=== PATIENT | male | born 1950 | race Two or more races ===

== ENCOUNTER 2017-11-20 06:20 | Inpatient (IN) | payer MEDICARE ==
[2017-11-20] VITALS (9 sets, daily range): BP systolic 93–136; BP diastolic 53–80
[~2017-11-20] VITALS: Ht 167.6 cm; Wt 54.4 kg
--- NOTE | 2017-11-20 06:35 | Emergency Room Report ---
History of Present Illness General Chief Complaint: Dyspnea/Respdistress Source: Patient, EMS Present Illness HPI Patient's a 66-year-old male who presented after increased shortness of breath. Patient gradual onset of symptoms. Patient recently been discharged from the hospital after pneumonia. He had prior history of COPD as well as CHF. Patient reported having increased cough. He reported having some increased leg swelling. Patient stated he was having some difficulty with urination. He denies any fever. Patient was sent in for worsening difficulty breathing.Shortness of breath is worse with supine position. The patient denies any current chest pain. Allergies: Coded Allergies: No Known Allergies (Unverified , 11/20/17) Patient History Past Medical History: see triage record Reviewed Nursing Documentation: PMH: Agreed, PSxH: Agreed Nursing Documentation-PMH Past Medical History: No History, Except For Hx Hypertension: Yes Hx Pacemaker: Yes Hx COPD: Yes Hx Neurological Problems: No - BPH, MRSA Review of Systems All Other Systems: negative except mentioned in HPI Physical Exam Vital Signs Date Time Temp Pulse Resp B/P (MAP) Pulse Ox O2 Delivery O2 Flow Rate FiO2 11/20/17 06:22 98.2 72 16 136/80 100 Room Air Sp02 EP Interpretation: reviewed, normal General Appearance: normal inspection, alert, moderate distress, Chronically Ill Head: atraumatic ENT: normal ENT inspection, hearing grossly normal, normal voice Neck: normal inspection, full range of motion, supple, no bony tend Respiratory: normal inspection, no retraction, accessory muscle use, crackles Cardiovascular #1: tachycardia, edema Gastrointestinal: normal inspection, normal bowel sounds, non tender, soft, no guarding, no hernia Genitourinary: no CVA tenderness Musculoskeletal: normal inspection, back normal, normal range of motion Neurologic: normal inspection, alert, oriented x3, responsive, 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 Differential included but was not limited to anemia, pneumonia, pneumothorax, myocardial infarction, pericardial effusion, congestive heart failure, acidosis. Because of complexity of patient' s case laboratory testing and imaging studies were ordered. EKG interpreted by me showed paced rhythm with a rate of 14 with prolonged QT interval QTC was 554. Chest x-ray one view interpreted by me showed marked cardiomegaly with vascular congestion consistent with CHF there is no evident pneumothorax. Patient was given IV Lasix as well as breathing treatment. He was noted to have some improvement in his symptoms. The patient was admitted Dr. Coronado due to primary care physician Labs Test 11/20/17 06:45 11/20/17 07:00 White Blood Count 5.5 K/UL (4.8-10.8) Red Blood Count 4.70 M/UL (4.70-6.10) Hemoglobin 13.9 G/DL (14.2-18.0) Hematocrit 45.5 % (42.0-52.0) Mean Corpuscular Volume 97 FL (80-99) Mean Corpuscular Hemoglobin 29.5 PG (27.0-31.0) Mean Corpuscular Hemoglobin Concent 30.5 G/DL (32.0-36.0) Red Cell Distribution Width 16.5 % (11.6-14.8) Platelet Count 218 K/UL (150-450) Mean Platelet Volume 5.9 FL (6.5-10.1) Neutrophils (%) (Auto) 64.1 % (45.0-75.0) Lymphocytes (%) (Auto) 27.5 % (20.0-45.0) Monocytes (%) (Auto) 6.8 % (1.0-10.0) Eosinophils (%) (Auto) 1.2 % (0.0-3.0) Basophils (%) (Auto) 0.5 % (0.0-2.0) Sodium Level 142 MMOL/L (136-145) Potassium Level 4.5 MMOL/L (3.5-5.1) Chloride Level 108 MMOL/L (98-107) Carbon Dioxide Level 28 MMOL/L (21-32) Anion Gap 6 mmol/L (5-15) Blood Urea Nitrogen 26 mg/dL (7-18) Creatinine 1.2 MG/DL (0.55-1.30) Estimat Glomerular Filtration Rate > 60 mL/min (>60) Glucose Level 103 MG/DL (74-106) Lactic Acid Level 1.20 mmol/L (0.66-2.22) Calcium Level 8.2 MG/DL (8.5-10.1) Total Bilirubin 0.6 MG/DL (0.2-1.0) Aspartate Amino Transf (AST/SGOT) 20 U/L (15-37) Alanine Aminotransferase (ALT/SGPT) 22 U/L (12-78) Alkaline Phosphatase 77 U/L (46-116) Total Creatine Kinase 27 U/L (26-308) Creatine Kinase MB 1.1 NG/ML (0.0-3.6) Creatine Kinase MB Relative Index 4.0 Troponin I 0.176 ng/mL (0.000-0.056) Pro-B-Type Natriuretic Peptide > 47824 pg/mL (0-125) Total Protein 8.0 G/DL (6.4-8.2) Albumin 2.7 G/DL (3.4-5.0) Globulin 5.3 g/dL Albumin/Globulin Ratio 0.5 (1.0-2.7) Arterial Blood pH 7.440 (7.350-7.450) Arterial Blood Partial Pressure CO2 37.5 mmHg (35.0-45.0) Arterial Blood Partial Pressure O2 93.4 mmHg (75.0-100.0) Arterial Blood HCO3 25.0 mmol/L (22.0-26.0) Arterial Blood Oxygen Saturation 96.8 % (92.0-98.0) Arterial Blood Base Excess 1.0 Sonido Test Positive EKG Diagnostic Results Rate: tachycardiac Rhythm: other - paced rhythm ST Segments: no acute changes Rhythm Strip Diag. Results EP Interpretation: yes Rhythm: no PVC's, no ectopy Last Vital Signs Date Time Temp Pulse Resp B/P (MAP) Pulse Ox O2 Delivery O2 Flow Rate FiO2 11/20/17 06:22 98.2 72 16 136/80 100 Room Air Status: unchanged Disposition: ADMITTED INPATIENT Condition: Mark Anthony Dupree Nov 20, 2017 06:35
[2017-11-20] MEDS: Albuterol/Ipratropium 3ml neb HHN SCH ×3 (06:42→19:26)
[2017-11-20 07:03] LABS: BASOPHILS % (AUTO) 0.5 % (0.0-2.0); EOSINOPHILS % (AUTO) 1.2 % (0.0-3.0); HEMATOCRIT 45.5 % (42.0-52.0); HEMOGLOBIN 13.9 G/DL (14.2-18.0); LYMPHOCYTES % (AUTO) 27.5 % (20.0-45.0); MEAN CORPUSCULAR VOLUME 97 FL (80-99); MONOCYTES % (AUTO) 6.8 % (1.0-10.0); NEUTROPHILS % (AUTO) 64.1 % (45.0-75.0); PLATELET COUNT 218 K/UL (150-450); RED CELL DISTRIBUTION WIDTH 16.5 % (11.6-14.8); WHITE BLOOD COUNT 5.5 K/UL (4.8-10.8)
[2017-11-20 07:21] LABS: ANION GAP 6 mmol/L (5-15); BLOOD UREA NITROGEN 26 mg/dL (7-18); CALCIUM 8.2 MG/DL (8.5-10.1); CARBON DIOXIDE 28 MMOL/L (21-32); CHLORIDE 108 MMOL/L (98-107); CREATININE 1.2 MG/DL (0.55-1.30); POTASSIUM 4.5 MMOL/L (3.5-5.1); SODIUM 142 MMOL/L (136-145)
[2017-11-20 07:40] LABS: ALANINE AMINOTRANSFERASE 22 U/L (12-78); ALBUMIN 2.7 G/DL (3.4-5.0); ALBUMIN/GLOBULIN RATIO 0.5 (1.0-2.7); ALKALINE PHOSPHATASE 77 U/L (46-116); ASPARTATE AMINO TRANSFERASE 20 U/L (15-37); BILIRUBIN,TOTAL 0.6 MG/DL (0.2-1.0); CKMB 1.1 NG/ML (0.0-3.6); CREATINE KINASE 27 U/L (26-308)
[2017-11-20] MEDS ORDERED: Nitroglycerin 2% oint pkt TOPIC ONE (07:45)
[2017-11-20] MEDS ORDERED: SIMVASTATIN10 MG ORAL (09:13)
[2017-11-20] MEDS ORDERED: FLUCONAZOLE100 MG ORAL (09:13)
[2017-11-20] MEDS ORDERED: TYLENOL650 MG/20. ORAL (09:13)
[2017-11-20] MEDS ORDERED: OSELTAMIVIR PHO75 MG PO (09:13)
[2017-11-20] MEDS ORDERED: AMIODARONE HCL400 M1 ORAL (09:13)
[2017-11-20] MEDS ORDERED: HEPARIN SO5000 UNIT2 SUBQ (09:13)
[2017-11-20] MEDS ORDERED: FUROSEMIDE40 MG ORAL (09:13)
[2017-11-20] MEDS ORDERED: SPIRONOLACTONE25 MG ORAL (09:13)
[2017-11-20] MEDS ORDERED: DULCOLAX5 MG PO (09:13)
[2017-11-20] MEDS ORDERED: METOPROLOL TART25 MG ORAL (09:13)
[2017-11-20] MEDS ORDERED: TAMSULOSIN HCL0.4 MG ORAL (09:13)
[2017-11-20] MEDS ORDERED: ISOSORBIDE DINI30 MG ORAL (09:13)
[2017-11-20] MEDS ORDERED: ASPIR 8181 MG ORAL (09:13)
[2017-11-20] MEDS ORDERED: IPRATROPIU0.2 MG/1 M HHN (09:13)
[2017-11-20] MEDS ORDERED: CARVEDILOL3.125 MG ORAL (09:13)
[2017-11-20] MEDS ORDERED: LOSARTAN POTASS25 MG ORAL (09:13)
[2017-11-20] MEDS ORDERED: COLACE100 MG ORAL (09:13)
--- NOTE | 2017-11-20 09:22 | Diagnostic Imaging Report ---
Indication: Reason For Exam: SOB Technique: XRAY Chest 1v Comparison:None Findings: The heart is enlarged. There is a biventricular pacemaker. Pulmonary vascular distribution is noted. No pleural fluid. The remainder the study is unremarkable. Impression: Cardiomegaly. Biventricular pacemaker. Mild congestive heart failure.
[2017-11-20 09:29] LABS: APPEARANCE,URINE CLEAR; BILIRUBIN, URINE NEGATIVE (NEGATIVE); COLOR,URINE PALE YELLOW; GLUCOSE, URINE (UA) NEGATIVE (NEGATIVE); KETONES,URINE NEGATIVE (NEGATIVE); LEUKOCYTE ESTERASE ,URINE 1+ (NEGATIVE); NITRITE,URINE NEGATIVE (NEGATIVE); PH,URINE 7 (4.5-8.0); PROTEIN,URINE NEGATIVE (NEGATIVE); UROBILINOGEN,URINE NORMAL MG/DL (0.0-1.0)
[2017-11-20] MEDS ORDERED: Fluconazole 100mg tab ORAL SCH ×2 (13:00→14:00)
--- NOTE | 2017-11-20 13:07 | History & Physical ---
History and Physical History & Physicial Patient seen and examined. Orders placed and consultants notified. Full dictation to follow. Vanita Quiroz N.P. Nov 20, 2017 13:07
[2017-11-20] MEDS: Aspirin EC 81mg tab ORAL SCH (14:54)
[2017-11-20] MEDS: Amiodarone 200mg tab ORAL SCH (14:55)
[2017-11-20] MEDS: Spironolactone 25mg tab ORAL SCH (14:55)
[2017-11-20] MEDS: Heparin 5000 units/ml inj SUBQ SCH ×2 (14:56→23:51)
[2017-11-20] MEDS: Losartan 25mg tab ORAL SCH (18:00)
--- NOTE | 2017-11-20 19:08 | Cardiology Report ---
APPROVED REPORT EKG Measurement Heart [id number] CO 132P77 [id number] Sinus tachycardia Demand ventricular pacemaker Abnormal ECG
[2017-11-20] MEDS ORDERED: Sodium Chloride 500ML 500 ML IV ONE (21:30)
[2017-11-20] MEDS: Tamsulosin 0.4mg cap ORAL SCH (22:04)
--- NOTE | 2017-11-20 23:18 | History and Physical ---
History of Present Illness General Date patient seen: Nov 20, 2017 Time patient seen: 11:00 Reason for Hospitalization: Dyspnea/Respdistress Present Illness HPI 66 year old male with a PMH of A. fibb, HTN, HLD, BPH, COPD, and systolic CHF ( EF 12% done on 10/2017) presented from [facility] for increasing shortness of breath. 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 Patient was treated with tamiflu and fluconazole. Final cocci serology from [facility] came back positive. Patient states that he has been feeling increasing shortness of breath for the last 1 day with associated nausea. Also reports non-productive cough. Denies chest pain, vomiting, abdominal pain, fevers, chills. In the ED, BNP was elevated and CXR showed congestive heart failure. Patient was given IV lasix with good response. Allergies: Coded Allergies: No Known Allergies (Unverified , 11/20/17) Medication History Scheduled Amiodarone Hcl* (Amiodarone Hcl*), 200 MG ORAL DAILY, (Reported) Aspirin* (Aspir 81*), 81 MG ORAL DAILY, (Reported) Bisacodyl (Dulcolax), 5 MG PO DAILY, (Reported) Carvedilol* (Carvedilol*), 3.125 MG ORAL DAILY, (Reported) Docusate Sodium* (Colace*), 100 MG ORAL DAILY, (Reported) Fluconazole (Fluconazole), 200 MG ORAL DAILY, (Reported) Furosemide* (Lasix*), 40 MG ORAL DAILY, (Reported) Heparin Sod (Porcine) (Heparin Sodium*), 5,000 UNITS SUBQ EVERY 8 HOURS, ( Reported) Isosorbide Dinitrate* (Isordil*), 30 MG ORAL DAILY, (Reported) Losartan Potassium* (Losartan Potassium*), 25 MG ORAL DAILY, (Reported) Metoprolol Tartrate* (Metoprolol Tartrate*), 25 MG ORAL DAILY, (Reported) Oseltamivir Phosphate (Oseltamivir Phosphate), 75 MG PO BID, (Reported) Simvastatin (Zocor), 10 MG ORAL BEDTIME, (Reported) Spironolactone* (Aldactone*), 25 MG ORAL DAILY, (Reported) Tamsulosin Hcl (Tamsulosin Hcl*), 0.4 MG ORAL BEDTIME, (Reported) Scheduled PRN Acetaminophen (Acetaminophen), 650 MG ORAL Q4HR PRN for Prn Headache/Temp > 101, (Reported) Ipratropium [place] 0.5MG/2.5ML (Ipratropium [place] 0.5MG/2.5ML), 0.5 MG HHN Q6H PRN for Shortness of Breath, (Reported) Patient History History Provided By: Patient, Medical Record Healthcare decision maker Resuscitation status Advanced Directive on File Review of Systems All Other Systems: negative except mentioned in HPI Physical Exam General Appearance: alert, moderate distress HEENT: normocephalic, atraumatic, PERRL Neck: non-tender, normal alignment, supple Respiratory/Chest: decreased breath sounds, crackles/rales Cardiovascular/Chest: regularly irregular Abdomen: normal bowel sounds, non tender, soft Skin Exam: normal pigmentation, warm/dry 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, no motor/sensory deficits, alert, oriented x 3 Last 24 Hour Vital Signs Date Time Temp Pulse Resp B/P (MAP) Pulse Ox O2 Delivery O2 Flow Rate FiO2 11/20/17 22:39 99/67 11/20/17 22:15 98.4 99 24 99/67 96 Nasal Cannula 2.0 11/20/17 20:50 98.2 95 24 93/53 98 Nasal Cannula 2.0 11/20/17 19:20 98 26 100 Nasal Cannula 2.0 28 11/20/17 19:10 99 29 92 Nasal Cannula 2.0 28 11/20/17 18:00 100/61 11/20/17 18:00 109 26 100/61 95 Nasal Cannula 2.0 11/20/17 16:00 97.8 97 28 101/62 100 Nasal Cannula 2.0 11/20/17 14:00 99 24 94/64 99 Nasal Cannula 2.0 11/20/17 13:07 103 20 100 Nasal Cannula 2.0 28 11/20/17 13:00 102 20 100 Nasal Cannula 2.0 28 11/20/17 12:00 98.3 95 24 100/68 95 Room Air 2.0 11/20/17 10:00 95 22 108/79 98 Nasal Cannula 2.0 11/20/17 08:35 120/78 11/20/17 07:15 103 24 110/71 100 Nasal Cannula 2.0 11/20/17 06:46 105 22 100 Nasal Cannula 2.0 28 11/20/17 06:44 103 23 Nasal Cannula 2.0 28 11/20/17 06:40 105 24 100 Nasal Cannula 2.0 28 11/20/17 06:26 98.2 72 16 136/80 100 Room Air 11/20/17 06:26 72 16 Room Air 11/20/17 06:22 98.2 72 16 136/80 100 Room Air Laboratory Tests Test 11/20/17 06:45 11/20/17 07:00 11/20/17 08:30 White Blood Count 5.5 K/UL (4.8-10.8) Red Blood Count 4.70 M/UL (4.70-6.10) Hemoglobin 13.9 G/DL (14.2-18.0) L Hematocrit 45.5 % (42.0-52.0) Mean Corpuscular Volume 97 FL (80-99) Mean Corpuscular Hemoglobin 29.5 PG (27.0-31.0) Mean Corpuscular Hemoglobin Concent 30.5 G/DL (32.0-36.0) L Red Cell Distribution Width 16.5 % (11.6-14.8) H Platelet Count 218 K/UL (150-450) Mean Platelet Volume 5.9 FL (6.5-10.1) L Neutrophils (%) (Auto) 64.1 % (45.0-75.0) Lymphocytes (%) (Auto) 27.5 % (20.0-45.0) Monocytes (%) (Auto) 6.8 % (1.0-10.0) Eosinophils (%) (Auto) 1.2 % (0.0-3.0) Basophils (%) (Auto) 0.5 % (0.0-2.0) Sodium Level 142 MMOL/L (136-145) Potassium Level 4.5 MMOL/L (3.5-5.1) Chloride Level 108 MMOL/L (98-107) H Carbon Dioxide Level 28 MMOL/L (21-32) Anion Gap 6 mmol/L (5-15) Blood Urea Nitrogen 26 mg/dL (7-18) H Creatinine 1.2 MG/DL (0.55-1.30) Estimat Glomerular Filtration Rate > 60 mL/min (>60) Glucose Level 103 MG/DL (74-106) Lactic Acid Level 1.20 mmol/L (0.66-2.22) Calcium Level 8.2 MG/DL (8.5-10.1) L Total Bilirubin 0.6 MG/DL (0.2-1.0) Aspartate Amino Transf (AST/SGOT) 20 U/L (15-37) Alanine Aminotransferase (ALT/SGPT) 22 U/L (12-78) Alkaline Phosphatase 77 U/L (46-116) Total Creatine Kinase 27 U/L (26-308) Creatine Kinase MB 1.1 NG/ML (0.0-3.6) Creatine Kinase MB Relative Index 4.0 Troponin I 0.176 ng/mL (0.000-0.056) Pro-B-Type Natriuretic Peptide > 63098 pg/mL (0-125) H Total Protein 8.0 G/DL (6.4-8.2) Albumin 2.7 G/DL (3.4-5.0) L Globulin 5.3 g/dL Albumin/Globulin Ratio 0.5 (1.0-2.7) L Arterial Blood pH 7.440 (7.350-7.450) Arterial Blood Partial Pressure CO2 37.5 mmHg (35.0-45.0) Arterial Blood Partial Pressure O2 93.4 mmHg (75.0-100.0) Arterial Blood HCO3 25.0 mmol/L (22.0-26.0) Arterial Blood Oxygen Saturation 96.8 % (92.0-98.0) Arterial Blood Base Excess 1.0 Sonido Test Positive Urine Color Pale yellow Urine Appearance Clear Urine pH 7 (4.5-8.0) Urine Specific [place] 1.005 (1.005-1.035) Urine Protein Negative (NEGATIVE) Urine Glucose (UA) Negative (NEGATIVE) Urine Ketones Negative (NEGATIVE) Urine Occult Blood Negative (NEGATIVE) Urine Nitrite Negative (NEGATIVE) Urine Bilirubin Negative (NEGATIVE) Urine Urobilinogen Normal MG/DL (0.0-1.0) Urine Leukocyte Esterase 1+ (NEGATIVE) H Urine RBC 0 /HPF (0 - 0) Urine WBC 0-2 /HPF (0 - 0) Urine Squamous Epithelial Cells Occasional /LPF Urine Bacteria Occasional /HPF (NONE) Microbiology Date/Time Source Procedure Growth Status 11/20/17 09:04 Nasal Nares Influenza Types A,B Antigen (PAOLO) - Final Complete Height (Feet): 5 Height (Inches): 2.00 Weight (Pounds): 125 Medications Current Medications Medications (Trade) Dose Ordered Sig/Sanjay Route PRN Reason Start Time Stop Time Status Last Admin Dose Admin Acetaminophen (Tylenol) 650 mg Q4H PRN ORAL Prn Headache/Temp > 101 11/20/17 13:00 12/20/17 12:59 Albuterol/ Ipratropium (Albuterol/ Ipratropium) 3 ml Q6HRT HHN 11/20/17 07:00 11/25/17 06:59 11/20/17 19:26 Amiodarone HCl (Cordarone) 200 mg DAILY ORAL 11/20/17 14:00 12/20/17 13:59 11/20/17 14:55 Aspirin (Ecotrin) 81 mg DAILY ORAL 11/20/17 14:00 12/20/17 13:59 11/20/17 14:54 Bisacodyl (Dulcolax) 5 mg DAILY ORAL 11/21/17 09:00 12/21/17 08:59 Docusate Sodium (Colace) 100 mg DAILY ORAL 11/21/17 09:00 12/21/17 08:59 Fluconazole (Diflucan) 200 mg DAILY ORAL 11/20/17 14:00 11/27/17 13:59 11/20/17 14:55 Furosemide (Lasix) 40 mg BID IV 11/20/17 18:00 12/20/17 17:59 11/20/17 17:53 Heparin Sodium (Porcine) (Heparin 5000 units/ml) 5,000 units EVERY 8 HOURS SUBQ 11/20/17 14:00 12/20/17 13:59 11/20/17 14:56 Ipratropium [place] (Atrovent) 500 mcg Q6H PRN HHN Shortness of Breath 11/20/17 13:00 11/25/17 12:59 Losartan Potassium (Cozaar) 25 mg DAILY ORAL 11/20/17 18:00 12/20/17 17:59 Metoprolol Tartrate (Lopressor) 25 mg DAILY ORAL 11/21/17 09:00 12/21/17 08:59 Spironolactone (Aldactone) 25 mg DAILY ORAL 11/20/17 14:00 12/20/17 13:59 11/20/17 14:55 Tamsulosin HCl (Flomax) 0.4 mg BEDTIME ORAL 11/20/17 21:00 12/20/17 20:59 11/20/17 22:04 Assessment/Plan Problem List: (1) BPH (benign prostatic hyperplasia) ICD Codes: N40.0 - Benign prostatic hyperplasia without lower urinary tract symptoms SNOMED: 136310066 (2) HTN (hypertension) ICD Codes: I10 - Essential (primary) hypertension SNOMED: 00583738 (3) HLD (hyperlipidemia) ICD Codes: E78.5 - Hyperlipidemia, unspecified SNOMED: 42452055 (4) CHF exacerbation ICD Codes: I50.9 - Heart failure, unspecified SNOMED: 15027582 (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 - Pulmonary coccidioidomycosis, unspecified SNOMED: 437776305 (6) Atrial fibrillation ICD Codes: I48.91 - Unspecified atrial fibrillation SNOMED: 05892340 (7) Respiratory distress ICD Codes: R06.03 - Acute respiratory distress SNOMED: 740264767 (8) CHF (congestive heart failure) ICD Codes: I50.9 - Heart failure, unspecified SNOMED: 90854500 (9) COPD exacerbation ICD Codes: J44.1 - Chronic obstructive pulmonary disease with (acute) exacerbation SNOMED: 871639932670371 (10) Prolonged Q-T interval on ECG ICD Codes: R94.31 - Abnormal electrocardiogram [ECG] [EKG] SNOMED: 561014935 (11) Elevated troponin ICD Codes: R74.8 - Abnormal levels of other serum enzymes SNOMED: 764730643, 399946130 Status: stable Assessment/Plan - Admit to tele - IV lasix 40mg BID - strict I&Os - 1.5 L fluid restriction - Trend BNP - trend troponins - serial CXR - Patient will need Fluconazole 200mg PO qd given positive cocci serology. However, patient has a prolonged QT interval on ECG. Will hold off on giving this medication and will further discuss with ID and cards. - check bone scan to rule out disseminated cocci - Cardiology consulted - ID consulted - Resume home meds. Tamiflu course finished - Pain control and supportive care - bowel regimen - FULL CODE d/w RN, patient, and all involved consultants. Total patient care and coordination time spent 65 minutes. Vanita Quiroz N.P. Nov 20, 2017 23:18
[2017-11-21] VITALS (7 sets, daily range): BP systolic 89–151; BP diastolic 51–91
[2017-11-21] MEDS: Albuterol/Ipratropium 3ml neb HHN SCH ×3 (01:00→15:37)
[2017-11-21 05:11] LABS: BASOPHILS % (AUTO) 0.7 % (0.0-2.0); EOSINOPHILS % (AUTO) 1.4 % (0.0-3.0); HEMATOCRIT 38.6 % (42.0-52.0); HEMOGLOBIN 12.2 G/DL (14.2-18.0); MEAN CORPUSCULAR VOLUME 96 FL (80-99); MONOCYTES % (AUTO) 7.3 % (1.0-10.0); NEUTROPHILS % (AUTO) 60.6 % (45.0-75.0); PLATELET COUNT 213 K/UL (150-450); RED BLOOD COUNT 4.01 M/UL (4.70-6.10); RED CELL DISTRIBUTION WIDTH 16.3 % (11.6-14.8); WHITE BLOOD COUNT 4.4 K/UL (4.8-10.8)
[2017-11-21 05:38] LABS: ANION GAP 6 mmol/L (5-15); BLOOD UREA NITROGEN 28 mg/dL (7-18); CALCIUM 7.7 MG/DL (8.5-10.1); CARBON DIOXIDE 31 MMOL/L (21-32); CHLORIDE 108 MMOL/L (98-107); CREATININE 1.2 MG/DL (0.55-1.30); POTASSIUM 3.8 MMOL/L (3.5-5.1); SODIUM 145 MMOL/L (136-145)
[2017-11-21 05:46] LABS: ALANINE AMINOTRANSFERASE 21 U/L (12-78); ALBUMIN 2.3 G/DL (3.4-5.0); ALBUMIN/GLOBULIN RATIO 0.5 (1.0-2.7); ALKALINE PHOSPHATASE 70 U/L (46-116); ASPARTATE AMINO TRANSFERASE 18 U/L (15-37); BILIRUBIN,TOTAL 0.5 MG/DL (0.2-1.0)
[2017-11-21] MEDS: Heparin 5000 units/ml inj SUBQ SCH ×3 (06:21→21:10)
[2017-11-21] MEDS: Amiodarone 200mg tab ORAL SCH (09:05)
[2017-11-21] MEDS: Docusate 100mg cap ORAL SCH (09:06)
[2017-11-21] MEDS: Aspirin EC 81mg tab ORAL SCH (09:06)
[2017-11-21] MEDS: Spironolactone 25mg tab ORAL SCH (09:06)
[2017-11-21] MEDS: Losartan 25mg tab ORAL SCH (09:06)
[2017-11-21] MEDS: Bisacodyl EC 5mg tab ORAL SCH (09:06)
[2017-11-21] MEDS: Metoprolol 25mg tab ORAL SCH (09:07)
--- NOTE | 2017-11-21 12:39 | General Progress Note ---
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 - Pulmonary coccidioidomycosis, unspecified SNOMED: 103956341 (6) Atrial fibrillation ICD Codes: I48.91 - Unspecified atrial fibrillation SNOMED: 75225255 (7) Respiratory distress ICD Codes: R06.03 - Acute respiratory distress SNOMED: 631065768 (8) CHF (congestive heart failure) ICD Codes: I50.9 - Heart failure, unspecified SNOMED: 68530623 (9) COPD exacerbation ICD Codes: J44.1 - Chronic obstructive pulmonary disease with (acute) exacerbation SNOMED: 449287775063406 (10) Prolonged Q-T interval on ECG ICD Codes: R94.31 - Abnormal electrocardiogram [ECG] [EKG] SNOMED: 966497230 (11) Elevated troponin ICD Codes: R74.8 - Abnormal levels of other serum enzymes SNOMED: 207206273, 279915886 (12) Bacteremia ICD Codes: R78.81 - Bacteremia SNOMED: 9511679 (13) Depressed left ventricular ejection fraction ICD Codes: R09.89 - Other specified symptoms and signs involving the circulatory and respiratory systems SNOMED: 480903182 Status: progressing Assessment/Plan - start IV vancomycin per pharmacy protocol - monitor Cr - IV lasix 40mg BID - strict I&Os - 1.5 L fluid restriction - Trend BNP - trend troponins - serial CXR - per cardiology, patient's QT interval cannot be followed as patient is paced. Per cards, okay to start patient on fluconazole. - start fluconazole 200mg PO qd - check bone scan to rule out disseminated cocci - ECHO with 12% EF from [facility] on 10/2017 - Cardiology consulted - ID consulted - Resume home meds. Tamiflu course finished - Pain control and supportive care - bowel regimen - FULL CODE d/w RN, patient, and all involved consultants. Total patient care and coordination time spent 65 minutes. Subjective Date patient seen: Nov 21, 2017 Allergies: Coded Allergies: No Known Allergies (Unverified , 11/20/17) Subjective - states that he feels better. denies sob or chest pain today. denies n/v, f/c, d/c, abdominal pain - discussed with cards and patient is paced and therefore cannot follow QT - blood cultures with GPC in pairs and chains in 1/4 bottles - bone scan today Objective Last 24 Hour Vital Signs Date Time Temp Pulse Resp B/P (MAP) Pulse Ox O2 Delivery O2 Flow Rate FiO2 11/21/17 09:32 84 20 100 Nasal Cannula 2.0 28 11/21/17 09:07 87 110/64 11/21/17 09:06 110/64 11/21/17 08:00 108 11/21/17 08:00 97.0 87 20 108/62 98 Nasal Cannula 3.0 11/21/17 08:00 98.1 132 24 151/91 92 Nasal Cannula 3.0 11/21/17 04:00 97.0 87 21 98/72 97 Nasal Cannula 3.0 11/21/17 01:11 Nasal Cannula 2.0 28 11/21/17 01:11 Nasal Cannula 2.0 28 11/21/17 00:00 97.5 94 24 106/51 93 Room Air 94 94 11/21/17 00:00 96 11/20/17 22:39 99/67 11/20/17 22:15 98.4 99 24 99/67 96 Nasal Cannula 2.0 11/20/17 20:50 98.2 95 24 93/53 98 Nasal Cannula 2.0 11/20/17 19:20 98 26 100 Nasal Cannula 2.0 28 11/20/17 19:10 99 29 92 Nasal Cannula 2.0 28 11/20/17 18:00 100/61 11/20/17 18:00 109 26 100/61 95 Nasal Cannula 2.0 11/20/17 16:00 97.8 97 28 101/62 100 Nasal Cannula 2.0 11/20/17 14:00 99 24 94/64 99 Nasal Cannula 2.0 11/20/17 13:07 103 20 100 Nasal Cannula 2.0 28 11/20/17 13:00 102 20 100 Nasal Cannula 2.0 28 Intake and Output 11/20/17 11/21/17 19:00 07:00 Intake Total 360 ml 755 ml Output Total 2400 ml 400 ml Balance -2040 ml 355 ml Intake Oral 360 ml 755 ml Output Urine Total 2400 ml 400 ml # Voids 2 # Bowel Movements 2 Laboratory Tests 11/21/17 04:40: White Blood Count 4.4L, Red Blood Count 4.01L, Hemoglobin 12.2L, Hematocrit 38.6L, Mean Corpuscular Volume 96, Mean Corpuscular Hemoglobin 30.6, Mean Corpuscular Hemoglobin Concent 31.8L, Red Cell Distribution Width 16.3H, Platelet Count 213, Mean Platelet Volume 6.1L, Neutrophils (%) (Auto) 60.6, Lymphocytes (%) (Auto) 30.0, Monocytes (%) (Auto) 7.3, Eosinophils (%) (Auto) 1.4, Basophils (%) (Auto) 0.7, Sodium Level 145, Potassium Level 3.8, Chloride Level 108H, Carbon Dioxide Level 31, Anion Gap 6, Blood Urea Nitrogen 28H, Creatinine 1.2, Estimat Glomerular Filtration Rate > 60, Glucose Level 93, Calcium Level 7.7L, Total Bilirubin 0.5, Aspartate Amino Transf (AST/SGOT) 18, Alanine Aminotransferase (ALT/SGPT) 21, Alkaline Phosphatase 70, Troponin I 0.152H, Total Protein 7.0, Albumin 2.3L, Globulin 4.7, Albumin/Globulin Ratio 0.5L Height (Feet): 5 Height (Inches): 6.00 Weight (Pounds): 114 General Appearance: no apparent distress, alert EENT: PERRL/EOMI, normal ENT inspection Neck: non-tender, normal alignment, supple Cardiovascular: normal peripheral pulses, regularly irregular Respiratory/Chest: chest wall non-tender, other - crackles to right lung base Abdomen: normal bowel sounds, non tender, soft 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
[2017-11-21] MEDS ORDERED: Fluconazole 100mg tab ORAL SCH (13:00)
[2017-11-21] MEDS: Vancomycin 1gm/D5W 275ml IVPB SCH ×2 (15:22)
--- NOTE | 2017-11-21 16:46 | Diagnostic Imaging Report ---
Indication: Coccidiomycosis Technique: 25.2 mCi of technetium 99 M-MDP was injected intravenously. A whole-body bone scan was then performed in anterior and posterior projections. Several spot images were also obtained. Comparison: None Findings: . Normal uptake is demonstrated throughout the axial skeleton. There are no focal lesions identified to indicate metastatic neoplasm. Photopenic defect over the left anterior chest wall is consistent with pacemaker. Impression: Negative whole body bone scan. Note: A complete study could not be performed. Patient refused to continue after the whole body images were obtained. No spot imaging could be performed.
--- NOTE | 2017-11-21 17:28 | Infectious Diseases Prog Note ---
Assessment/Plan Assessment/Plan Full consult dictated: A) 1) acute cocci infection with titer 1:128, + igm and + igg from [facility] records 2) Gram + blood culture + at [facility] 3) RUL density CT chest at [facility] 4) h/o latent TB, s/p 2 months tx, f/u TB gold negative 5) s/p Tx for Influenza A 6) hx of QT interval prolongation at [facility] but patient has pacemaker 7) limited bone scan negative, patient refused lumbar puncture in long discussion with patient P) 1) Diflucan - start at lower dose of 200 mg and monitor on telemetry, consider going to 400 mg if tolerates 2) d/w Dr. Marquez cardiology and will possibly hold amiodarone 3) high risk for renal failure with amphotericin with severe cardiomyopathy 4) d/w Vanita uQiroz NP 5) thank you Subjective Allergies: Coded Allergies: No Known Allergies (Unverified , 11/20/17) Objective Vital Signs Last 24 Hour Vital Signs Date Time Temp Pulse Resp B/P (MAP) Pulse Ox O2 Delivery O2 Flow Rate FiO2 11/21/17 16:00 97.5 77 20 100/69 100 Nasal Cannula 3.0 11/21/17 12:39 98 26 100 Nasal Cannula 2.0 28 11/21/17 12:30 87 20 100 Nasal Cannula 2.0 28 11/21/17 12:00 97.5 87 18 105/57 97 Nasal Cannula 3.0 11/21/17 12:00 91 11/21/17 09:32 84 20 100 Nasal Cannula 2.0 28 11/21/17 09:07 87 110/64 11/21/17 09:06 110/64 11/21/17 08:00 108 11/21/17 08:00 97.0 87 20 108/62 98 Nasal Cannula 3.0 11/21/17 08:00 98.1 132 24 151/91 92 Nasal Cannula 3.0 11/21/17 04:00 97.0 87 21 98/72 97 Nasal Cannula 3.0 11/21/17 01:11 Nasal Cannula 2.0 28 11/21/17 01:11 Nasal Cannula 2.0 28 11/21/17 00:00 97.5 94 24 106/51 93 Room Air 94 94 11/21/17 00:00 96 11/20/17 22:39 99/67 11/20/17 22:15 98.4 99 24 99/67 96 Nasal Cannula 2.0 11/20/17 20:50 98.2 95 24 93/53 98 Nasal Cannula 2.0 11/20/17 19:20 98 26 100 Nasal Cannula 2.0 28 11/20/17 19:10 99 29 92 Nasal Cannula 2.0 28 11/20/17 18:00 100/61 11/20/17 18:00 109 26 100/61 95 Nasal Cannula 2.0 Height (Feet): 5 Height (Inches): 6.00 Weight (Pounds): 114 Microbiology Date/Time Source Procedure Growth Status 11/20/17 06:45 Blood Blood Culture - Preliminary Resulted 11/20/17 09:04 Nasal Nares Influenza Types A,B Antigen (PAOLO) - Final Complete Laboratory Tests Test 11/21/17 04:40 White Blood Count 4.4 K/UL (4.8-10.8) L Red Blood Count 4.01 M/UL (4.70-6.10) L Hemoglobin 12.2 G/DL (14.2-18.0) L Hematocrit 38.6 % (42.0-52.0) L Mean Corpuscular Volume 96 FL (80-99) Mean Corpuscular Hemoglobin 30.6 PG (27.0-31.0) Mean Corpuscular Hemoglobin Concent 31.8 G/DL (32.0-36.0) L Red Cell Distribution Width 16.3 % (11.6-14.8) H Platelet Count 213 K/UL (150-450) Mean Platelet Volume 6.1 FL (6.5-10.1) L Neutrophils (%) (Auto) 60.6 % (45.0-75.0) Lymphocytes (%) (Auto) 30.0 % (20.0-45.0) Monocytes (%) (Auto) 7.3 % (1.0-10.0) Eosinophils (%) (Auto) 1.4 % (0.0-3.0) Basophils (%) (Auto) 0.7 % (0.0-2.0) Sodium Level 145 MMOL/L (136-145) Potassium Level 3.8 MMOL/L (3.5-5.1) Chloride Level 108 MMOL/L (98-107) H Carbon Dioxide Level 31 MMOL/L (21-32) Anion Gap 6 mmol/L (5-15) Blood Urea Nitrogen 28 mg/dL (7-18) H Creatinine 1.2 MG/DL (0.55-1.30) Estimat Glomerular Filtration Rate > 60 mL/min (>60) Glucose Level 93 MG/DL (74-106) Calcium Level 7.7 MG/DL (8.5-10.1) L Total Bilirubin 0.5 MG/DL (0.2-1.0) Aspartate Amino Transf (AST/SGOT) 18 U/L (15-37) Alanine Aminotransferase (ALT/SGPT) 21 U/L (12-78) Alkaline Phosphatase 70 U/L (46-116) Troponin I 0.152 ng/mL (0.000-0.056) Total Protein 7.0 G/DL (6.4-8.2) Albumin 2.3 G/DL (3.4-5.0) L Globulin 4.7 g/dL Albumin/Globulin Ratio 0.5 (1.0-2.7) L Current Medications Medications (Trade) Dose Ordered Sig/Sanjay Route PRN Reason Start Time Stop Time Status Last Admin Dose Admin Acetaminophen (Tylenol) 650 mg Q4H PRN ORAL Prn Headache/Temp > 101 11/20/17 13:00 12/20/17 12:59 Albuterol/ Ipratropium (Albuterol/ Ipratropium) 3 ml Q6HRT HHN 11/20/17 07:00 11/25/17 06:59 11/21/17 15:37 Amiodarone HCl (Cordarone) 200 mg DAILY ORAL 11/20/17 14:00 12/20/17 13:59 11/21/17 09:05 Aspirin (Ecotrin) 81 mg DAILY ORAL 11/20/17 14:00 12/20/17 13:59 11/21/17 09:06 Bisacodyl (Dulcolax) 5 mg DAILY ORAL 11/21/17 09:00 12/21/17 08:59 11/21/17 09:06 Docusate Sodium (Colace) 100 mg DAILY ORAL 11/21/17 09:00 12/21/17 08:59 11/21/17 09:06 Furosemide (Lasix) 40 mg BID IV 11/20/17 18:00 12/20/17 17:59 11/21/17 09:05 Heparin Sodium (Porcine) (Heparin 5000 units/ml) 5,000 units EVERY 8 HOURS SUBQ 11/20/17 14:00 12/20/17 13:59 11/21/17 15:24 Ipratropium Depue (Atrovent) 500 mcg Q6H PRN HHN Shortness of Breath 11/20/17 13:00 11/25/17 12:59 Losartan Potassium (Cozaar) 25 mg DAILY ORAL 11/20/17 18:00 12/20/17 17:59 11/21/17 09:06 Metoprolol Tartrate (Lopressor) 25 mg DAILY ORAL 11/21/17 09:00 12/21/17 08:59 11/21/17 09:07 Spironolactone (Aldactone) 25 mg DAILY ORAL 11/20/17 14:00 12/20/17 13:59 11/21/17 09:06 Tamsulosin HCl (Flomax) 0.4 mg BEDTIME ORAL 11/20/17 21:00 12/20/17 20:59 11/20/17 22:04 Vancomycin HCl (Vanco rx to dose) 1 ea DAILY PRN MISC Per rx protocol 11/21/17 11:00 12/21/17 10:59 Vancomycin HCl 1 gm/Dextrose 275 ml @ 183.708 mls/hr Q24H IVPB 11/21/17 13:00 11/26/17 12:59 11/21/17 15:22 MARÍA ESTRELLA Nov 21, 2017 17:28
[2017-11-21] MEDS: Tamsulosin 0.4mg cap ORAL SCH (21:08)
[2017-11-21] MEDS: Acetaminophen 650mg/20.3ml ORAL PRN (21:59)
[2017-11-22] VITALS: BP 96/65
[2017-11-22] MEDS: Ipratropium 0.02% Inh Soln 2.5ml UD HHN PRN ×2 (00:31→21:07)
--- NOTE | 2017-11-22 01:30 | Consultation ---
DATE OF CONSULTATION: 11/21/2017 INFECTIOUS DISEASES CONSULTATION CONSULTING PHYSICIAN: Autumn Varner M.D. ATTENDING PHYSICIAN: Shobha Tovar M.D. REASON FOR CONSULTATION: Coccidioidomycosis, pneumonia, and respiratory infection. CHIEF COMPLAINT: The patient's chief complaint coming in to the hospital is chronic obstructive pulmonary disease exacerbation. HISTORY OF PRESENT ILLNESS: This is a 66-year-old male, who comes in to [facility] with COPD exacerbation. Chest x-ray shows cardiomegaly. The patient was recently at [facility] where he was diagnosed with coccidioidomycosis. At that time, he had a workup, which included fever where he was positive for influenza B. The patient was given Tamiflu, I believe, for 5 days. Other workup showed that he had a CT scan of the chest showed severe emphysema and also right upper lobe density. The patient had a workup, which included cocci serology which showed positive IgG and IgM for coccidioidomycosis. The patient had a titer that I believe was 1 to 1.8. The patient had sputum culture, which showed normal claudine. Because of the coccidioidomycosis infection, an Infectious Disease consultation was requested. Of note, on the workup here he had Gram-positive cocci in chains in one bottle. Identification is pending. Blood cultures at [facility] were negative and I discussed the influenza screen was positive for influenza B. I discussed the case with the infectious specialist at [facility] Dr. Harrison and there was concern for QT prolongation at [facility] and Diflucan was held until there was confirmation of the diagnosis. The patient also has severe cardiomyopathy with ejection fraction that is very low I believe is 10% to 15% but I have to confirm this. The patient also was on amiodarone. MAR was noted. Orders were noted. Notes were reviewed. Case was discussed with RN. Case was also discussed with Lisette Grossman, nurse practitioner for Dr. Tovar and also Dr. Clark Marquez, Cardiology. PAST MEDICAL HISTORY: The patient's past medical history includes the following. The patient has a past medical history of atrial fibrillation, pacemaker, history of hypertension, cardiomyopathy, hyperlipidemia, BPH, COPD, ejection fraction of 12%. The patient has also history of congestive heart failure and prolonged QT interval on EKG. The patient also has history of elevated troponin. He has a history of possible latent tuberculosis. He was given 2 months of treatment and follow up TB gold was negative. ALLERGIES: No known drug allergies. MEDICATIONS: Upon reviewing the MAR, he is on following medications. He is on vancomycin, bisacodyl, Colace and Lopressor. He is on Flomax, amiodarone, Cozaar, Lasix. He is on Ecotrin, heparin, spironolactone, Tylenol, albuterol and Atrovent. Outside medications are noted and reconciliated. SOCIAL HISTORY: At this time, I reviewed is negative for smoking, alcohol, or drug abuse. I believe that the patient does have a history of smoking in the past. FAMILY HISTORY: Noncontributory. No mention of exposure to tuberculosis or cancer. REVIEW OF SYSTEMS: CONSTITUTIONAL: The patient has generalized weakness and fatigue. Some shortness of breath but nothing severe. HEAD AND NECK: No head pain, neck pain, or neck stiffness. CARDIAC: No chest pain. GASTROINTESTINAL: No nausea or diarrhea. GENITOURINARY: No dysuria or frequency. PULMONARY: Mild congestion with shortness of breath. No secretions or hemoptysis. SKIN: No rash. NEUROLOGICAL: No seizures. He has generalized weakness and fatigue, but no focal weakness. No weight loss, night sweats, or fevers at this time. PHYSICAL EXAMINATION: VITAL SIGNS: The patient's temperature is 97.5, pulse rate 77, respiratory rate 20, blood pressure 100/69 and saturation 100%. GENERAL: The patient is alert, responsive, and seems to be oriented. HEAD AND NECK: Oral exam, no thrush. Eye exam, no icterus. Normocephalic. No facial droop. No neck stiffness. Neck is supple. HEART: Regular. No gallop or murmur. ABDOMEN: Soft. Positive bowel sounds. LUNGS: Few bilateral rhonchi. No definite rales. Some wheezing occasionally also. MUSCULOSKELETAL: No effusion. Legs are without cellulitis. PERIPHERAL VASCULAR: No cyanosis or gangrene. SKIN: No rash. No evidence of effusions. GENITOURINARY: No Edwards. LINES: Lines sites without phlebitis. NEUROLOGIC: Intact. Nonfocal. LABORATORY AND DIAGNOSTIC DATA: Laboratory data is as follows, creatinine 1.2. Lactic acid 1.2. White count 4.4, hemoglobin 12.2, and platelet count is 213. Urinalysis was 0 to 2 white blood cells. Blood cultures with gram-positive cocci in chains and pairs in one bottle only. Identification is pending at this time. Influenza screen here is negative. Outside hospital [facility] where he was previously admitted his influenza B was positive. Chest x-ray shows cardiomegaly. Outside CT scan, per the records showed right upper lobe density. Outside serology cocci IgM and IgG was positive and serology of complement fixation, I believe, is 1 to 128. ASSESSMENT AND PLAN: 1. The patient has what looks like acute coccidioidomycosis, pneumonia and respiratory infection. The patient's titer is 1 to 128. Bone scan was limited but was negative. The patient is refusing lumbar puncture. I discussed the case at length that he is a high risk for cocci meningitis, however, he is refusing lumbar puncture on multiple and prolonged discussions with the patient. With regards to therapy at this time, therapy is limited because of the patient's cardiomyopathy with ejection fraction of 12% and also has history of QT prolongation and he is on amiodarone. Options include itraconazole/Diflucan versus Amphotericin-B. At this point, I believe the patient is at very high risk for nephrotoxicity to Amphotericin-B with a low ejection fraction of 12% and cardiomyopathy. In addition, for the long-term the patient probably will not tolerate Amphotericin-B. Both the itraconazole and Diflucan will have the risk of interaction with amiodarone and causing QT prolongation. He did get a dose of Diflucan 200 mg today without any toxicity or side effects at least in my discussion with nursing staff. At this time, I favor to start the patient on Diflucan 200 mg a day while on amiodarone. I discussed the case with Dr. Marquez and there is a possibility we will discontinue the amiodarone and then possibly increase the Diflucan 400 mg a day. With regards to history of QT prolongation and discussion with Dr. Marquez, a pacemaker is unreliable for this with QT prolongation could be hardly because of the pacemaker the patient has. At this time, we will start the Diflucan 200 mg a day and may be escalate to 400 mg or increase to 400 mg a day if he tolerates. This case was discussed with Dr. Marquez and also Lisette Grossman, nurse practitioner for Dr. Shakibai. 2. The patient has gram-positive cocci in chains 1 bottle in the blood. The patient will be started on vancomycin to cover Streptococcus and Enterococcus. Pending culture results. The patient may need an echo to rule out endocarditis even though this will be unlikely with only 1 bottle being positive. Check surveillance blood cultures. Continue vancomycin for now. Pending identification. 3. History of positive latent tuberculosis but follow up TB gold was negative. The patient is status post remote treatment which was discontinued. 4. History of influenza B infection status post treatment. 5. Right upper lobe density. CT scan of chest at [facility] likely coccidioidomycosis. 6. Cardiomyopathy. 7. Low ejection fraction of 12%. 8. History of QT prolongation. 9. Hypertension. 10. Atrial fibrillation. 11. Pacemaker. 12. Hyperlipidemia. 13. Benign prostatic hypertrophy. 14. Chronic obstructive pulmonary disease. 15. Systolic congestive heart failure. 16. I believe social history of possibly smoke in the past, based on chronic obstructive pulmonary disease. 17. Family history is noncontributory. 18. MAR was noted. 19. Case was discussed with RN. 20. No known drug allergies. 21. Continue treatment per primary consultants. 22. Skin care protocol. 23. telemetry monitoring. Consider daily EKGs. 24. Notes and records were noted. 25. Orders were entered. Autumn Varner M.D. DR: ROMEO JOB#: [id number] CC:
[2017-11-22 04:00] VITALS: BP 93/55
[2017-11-22] MEDS: Heparin 5000 units/ml inj SUBQ SCH ×3 (06:00→22:43)
[2017-11-22 08:00] VITALS: BP 93/50
[2017-11-22] MEDS: Losartan 25mg tab ORAL SCH (09:00)
[2017-11-22] MEDS: Metoprolol 25mg tab ORAL SCH (09:00)
[2017-11-22] MEDS: Spironolactone 25mg tab ORAL SCH ×2 (09:46→09:53)
[2017-11-22] MEDS: Amiodarone 200mg tab ORAL SCH (09:46)
[2017-11-22] MEDS: Docusate 100mg cap ORAL SCH (09:46)
[2017-11-22] MEDS: Fluconazole 100mg tab ORAL SCH (09:46)
[2017-11-22] MEDS: Aspirin EC 81mg tab ORAL SCH (09:46)
[2017-11-22] MEDS: Bisacodyl EC 5mg tab ORAL SCH (09:46)
[2017-11-22 09:51] LABS: BASOPHILS % (AUTO) 0.7 % (0.0-2.0); EOSINOPHILS % (AUTO) 2.3 % (0.0-3.0); HEMATOCRIT 36.4 % (42.0-52.0); HEMOGLOBIN 11.2 G/DL (14.2-18.0); LYMPHOCYTES % (AUTO) 26.3 % (20.0-45.0); MEAN CORPUSCULAR VOLUME 98 FL (80-99); MONOCYTES % (AUTO) 8.6 % (1.0-10.0); PLATELET COUNT 204 K/UL (150-450); RED BLOOD COUNT 3.72 M/UL (4.70-6.10); RED CELL DISTRIBUTION WIDTH 16.3 % (11.6-14.8); WHITE BLOOD COUNT 3.8 K/UL (4.8-10.8)
[2017-11-22 09:59] LABS: ALANINE AMINOTRANSFERASE 15 U/L (12-78); ALBUMIN 2.3 G/DL (3.4-5.0); ALBUMIN/GLOBULIN RATIO 0.5 (1.0-2.7); ALKALINE PHOSPHATASE 67 U/L (46-116); ANION GAP 7 mmol/L (5-15); ASPARTATE AMINO TRANSFERASE 17 U/L (15-37); BILIRUBIN,TOTAL 0.4 MG/DL (0.2-1.0); BLOOD UREA NITROGEN 29 mg/dL (7-18); CALCIUM 7.7 MG/DL (8.5-10.1); CARBON DIOXIDE 27 MMOL/L (21-32); CHLORIDE 108 MMOL/L (98-107); CREATININE 1.2 MG/DL (0.55-1.30); POTASSIUM 3.6 MMOL/L (3.5-5.1); SODIUM 142 MMOL/L (136-145)
[2017-11-22 12:00] VITALS: BP 91/60
[2017-11-22] MEDS: Acetaminophen 650mg/20.3ml ORAL PRN ×2 (12:00→22:40)
--- NOTE | 2017-11-22 12:44 | Diagnostic Imaging Report ---
Indication: Cough Comparison: 11/20/2017 A single view chest radiograph was obtained. Findings: Moderate cardiomegaly again demonstrated. Pacemaker noted. Mild interstitial edema again noted. IMPRESSION: No change from the last exam
[2017-11-22] MEDS: Vancomycin 1gm/D5W 275ml IVPB SCH ×2 (14:38)
--- NOTE | 2017-11-22 15:47 | General Progress Note ---
Assessment/Plan Status: stable Assessment/Plan (1) BPH (benign prostatic hyperplasia) ICD Codes: N40.0 - Benign prostatic hyperplasia without lower urinary tract symptoms SNOMED: 676729849 (2) HTN (hypertension) ICD Codes: I10 - Essential (primary) hypertension SNOMED: 81339529 (3) HLD (hyperlipidemia) ICD Codes: E78.5 - Hyperlipidemia, unspecified SNOMED: 07671570 (4) CHF exacerbation ICD Codes: I50.9 - Heart failure, unspecified SNOMED: 65183001 (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 - Pulmonary coccidioidomycosis, unspecified SNOMED: 494779886 (6) Atrial fibrillation, paroxysmal ICD Codes: I48.91 - Unspecified atrial fibrillation SNOMED: 03352808 (7) Respiratory distress ICD Codes: R06.03 - Acute respiratory distress SNOMED: 711180334 (8) CHF (congestive heart failure) ICD Codes: I50.9 - Heart failure, unspecified SNOMED: 27310279 (9) COPD exacerbation ICD Codes: J44.1 - Chronic obstructive pulmonary disease with (acute) exacerbation SNOMED: 573507060010919 (10) Prolonged Q-T interval on ECG ICD Codes: R94.31 - Abnormal electrocardiogram [ECG] [EKG] SNOMED: 592618031 (11) Elevated troponin ICD Codes: R74.8 - Abnormal levels of other serum enzymes SNOMED: 149311053, 324385323 (12) Bacteremia ICD Codes: R78.81 - Bacteremia SNOMED: 2286612 (13) Depressed left ventricular ejection fraction / Cardiomyopathy / Acute on chronic systolic and diastolic heart failure ICD Codes: R09.89 - Other specified symptoms and signs involving the circulatory and respiratory systems SNOMED: 163728342 Status: progressing Assessment/Plan - Cont IIV vancomycin per pharmacy protocol - monitor Cr - IV lasix 40mg BID - strict I&Os - 1.5 L fluid restriction - Trend BNP - trend troponins - serial CXR - per cardiology, patient's QT interval cannot be followed as patient is paced. Per cards, okay to start patient on fluconazole. - cont fluconazole 200mg PO qd - check bone scan to rule out disseminated cocci --> negative - ECHO with 12% EF from [facility] on 10/2017 - Cardiology consulted - ID consulted - Resume home meds. Tamiflu course finished - Pain control and supportive care - bowel regimen - FULL CODE d/w RN, patient, and all involved consultants. Total patient care and coordination time spent 42 minutes. D/w pt, RN, SW/CM and ID regarding mgmt and dispo Subjective Date patient seen: Nov 22, 2017 Time patient seen: 15:47 ROS Limited/Unobtainable: No Constitutional: Reports: weakness HEENT: Reports: no symptoms Cardiovascular: Reports: no symptoms Respiratory: Reports: cough, shortness of breath Gastrointestinal/Abdominal: Reports: no symptoms Genitourinary: Reports: no symptoms Neurologic/Psychiatric: Reports: no symptoms Endocrine: Reports: no symptoms Hematologic/Lymphatic: Reports: no symptoms Allergies: Coded Allergies: No Known Allergies (Unverified , 11/20/17) All Systems: reviewed and negative except above Subjective No acute o/n events - states that he feels better. denies sob or chest pain today. denies n/v, f/c, d/c, abdominal pain - discussed with cards and patient is paced and therefore cannot follow QT - blood cultures with GPC in pairs and chains in 1/4 bottles - bone scan done yesterday was negative Objective Last 24 Hour Vital Signs Date Time Temp Pulse Resp B/P (MAP) Pulse Ox O2 Delivery O2 Flow Rate FiO2 11/22/17 12:00 97.0 79 18 91/60 100 Nasal Cannula 2.0 11/22/17 09:00 79 93/50 11/22/17 09:00 93/50 11/22/17 08:00 97.0 79 20 93/50 100 Nasal Cannula 2.0 11/22/17 08:00 74 11/22/17 04:00 71 11/22/17 04:00 97.0 66 20 93/55 99 Nasal Cannula 2.0 11/22/17 00:32 82 20 100 Nasal Cannula 2.0 11/22/17 00:25 80 20 94 Nasal Cannula 2.0 28 11/22/17 00:00 97.0 70 21 96/65 94 Nasal Cannula 2.0 11/22/17 00:00 74 11/21/17 22:29 97.5 11/21/17 22:00 97.0 71 20 89/57 94 Nasal Cannula 2.0 11/21/17 20:00 74 11/21/17 20:00 97.5 77 20 / 100 Nasal Cannula 3.0 11/21/17 16:00 97.5 77 20 100/ 100 Nasal Cannula 3.0 11/21/17 16:00 83 Intake and Output 11/21/17 11/22/17 19:00 07:00 Intake Total 1417.416 ml 120 ml Output Total 700 ml 700 ml Balance 717.416 ml -580 ml Intake Oral 1050 ml 120 ml IV Total 367.416 ml Output Urine Total 700 ml 700 ml # Voids 1 1 # Bowel Movements 5 2 Laboratory Tests 11/22/17 08:50: White Blood Count 3.8L, Red Blood Count 3.72L, Hemoglobin 11.2L, Hematocrit 36.4L, Mean Corpuscular Volume 98, Mean Corpuscular Hemoglobin 30.2, Mean Corpuscular Hemoglobin Concent 30.8L, Red Cell Distribution Width 16.3H, Platelet Count 204, Mean Platelet Volume 6.2L, Neutrophils (%) (Auto) 62.0, Lymphocytes (%) (Auto) 26.3, Monocytes (%) (Auto) 8.6, Eosinophils (%) (Auto) 2.3, Basophils (%) (Auto) 0.7, Sodium Level 142, Potassium Level 3.6, Chloride Level 108H, Carbon Dioxide Level 27, Anion Gap 7, Blood Urea Nitrogen 29H, Creatinine 1.2, Estimat Glomerular Filtration Rate > 60, Glucose Level 132H, Calcium Level 7.7L, Total Bilirubin 0.4, Aspartate Amino Transf (AST/SGOT) 17, Alanine Aminotransferase (ALT/SGPT) 15, Alkaline Phosphatase 67, Pro-B-Type Natriuretic Peptide 22567T, Total Protein 6.7, Albumin 2.3L, Globulin 4.4, Albumin/Globulin Ratio 0.5L Height (Feet): 5 Height (Inches): 6.00 Weight (Pounds): 114 Objective General: alert, cooperative, no distress, appears stated age, thin Head: normocephalic, without obvious abnormality, atraumatic Eyes: conjunctivae/corneas clear. PERRL, EOM's intact Throat: lips, mucosa, and tongue normal. MMM Neck: supple, symmetrical, trachea midline, and no JVD Lungs: clear to auscultation bilaterally Heart: regular rate and rhythm, S1, S2 normal, no murmur, click, rub or gallop Abdomen: soft, non-tender, non-distended, bowel sounds normal; no masses or organomegaly Extremities: extremities normal, atraumatic, no cyanosis or edema Pulses: 2+ and symmetric Skin: skin color, texture, turgor normal; no rashes or lesions Neurologic: grossly normal, no focal deficits Kiara Kulkarni M.D. Nov 22, 2017 15:47
[2017-11-22 16:00] VITALS: BP 101/71
--- NOTE | 2017-11-22 18:09 | Cardiac Electrophysiology PN ---
Subjective Subjective EP consult dictated. [id number] Will Interrogate ICD for atrial fib burden. Hold Amiodarone for now. Repeat ECG off amio for QT Objective Last 24 Hour Vital Signs Date Time Temp Pulse Resp B/P (MAP) Pulse Ox O2 Delivery O2 Flow Rate FiO2 11/22/17 16:00 97.2 18 101/71 100 Nasal Cannula 2.0 11/22/17 12:00 97.0 79 18 91/60 100 Nasal Cannula 2.0 11/22/17 09:00 79 93/50 11/22/17 09:00 93/50 11/22/17 08:00 97.0 79 20 93/50 100 Nasal Cannula 2.0 11/22/17 08:00 74 11/22/17 04:00 71 11/22/17 04:00 97.0 66 20 93/55 99 Nasal Cannula 2.0 11/22/17 00:32 82 20 100 Nasal Cannula 2.0 28 11/22/17 00:25 80 20 94 Nasal Cannula 2.0 28 11/22/17 00:00 97.0 70 21 96/65 94 Nasal Cannula 2.0 11/22/17 00:00 74 11/21/17 22:29 97.5 11/21/17 22:00 97.0 71 20 89/57 94 Nasal Cannula 2.0 11/21/17 20:00 74 11/21/17 20:00 97.5 77 20 100/69 100 Nasal Cannula 3.0 Intake and Output 11/21/17 11/22/17 19:00 07:00 Intake Total 1417.416 ml 120 ml Output Total 700 ml 700 ml Balance 717.416 ml -580 ml Intake Oral 1050 ml 120 ml IV Total 367.416 ml Output Urine Total 700 ml 700 ml # Voids 1 1 # Bowel Movements 5 2 Laboratory Tests Test 11/22/17 08:50 White Blood Count 3.8 K/UL (4.8-10.8) L Red Blood Count 3.72 M/UL (4.70-6.10) L Hemoglobin 11.2 G/DL (14.2-18.0) L Hematocrit 36.4 % (42.0-52.0) L Mean Corpuscular Volume 98 FL (80-99) Mean Corpuscular Hemoglobin 30.2 PG (27.0-31.0) Mean Corpuscular Hemoglobin Concent 30.8 G/DL (32.0-36.0) L Red Cell Distribution Width 16.3 % (11.6-14.8) H Platelet Count 204 K/UL (150-450) Mean Platelet Volume 6.2 FL (6.5-10.1) L Neutrophils (%) (Auto) 62.0 % (45.0-75.0) Lymphocytes (%) (Auto) 26.3 % (20.0-45.0) Monocytes (%) (Auto) 8.6 % (1.0-10.0) Eosinophils (%) (Auto) 2.3 % (0.0-3.0) Basophils (%) (Auto) 0.7 % (0.0-2.0) Sodium Level 142 MMOL/L (136-145) Potassium Level 3.6 MMOL/L (3.5-5.1) Chloride Level 108 MMOL/L (98-107) H Carbon Dioxide Level 27 MMOL/L (21-32) Anion Gap 7 mmol/L (5-15) Blood Urea Nitrogen 29 mg/dL (7-18) H Creatinine 1.2 MG/DL (0.55-1.30) Estimat Glomerular Filtration Rate > 60 mL/min (>60) Glucose Level 132 MG/DL (74-106) H Calcium Level 7.7 MG/DL (8.5-10.1) L Total Bilirubin 0.4 MG/DL (0.2-1.0) Aspartate Amino Transf (AST/SGOT) 17 U/L (15-37) Alanine Aminotransferase (ALT/SGPT) 15 U/L (12-78) Alkaline Phosphatase 67 U/L (46-116) Pro-B-Type Natriuretic Peptide 62809 pg/mL (0-125) H Total Protein 6.7 G/DL (6.4-8.2) Albumin 2.3 G/DL (3.4-5.0) L Globulin 4.4 g/dL Albumin/Globulin Ratio 0.5 (1.0-2.7) L Coccidioides Antibody (Comp Fix) Pending Microbiology Date/Time Source Procedure Growth Status 11/20/17 06:45 Blood Blood Culture - Preliminary Resulted 11/20/17 06:45 Blood Blood Culture - Preliminary NO GROWTH AFTER 24 HOURS Resulted 11/20/17 09:40 Nasal Nares MRSA Culture - Final Staphylococcus Aureus - Mrsa Complete 11/20/17 09:04 Nasal Nares Influenza Types A,B Antigen (PAOLO) - Final Complete 11/20/17 09:40 Rectum VRE Culture - Final NO VANCOMYCIN RESISTANT ENTEROCOCCUS ... Complete HECTOR MCCALL Nov 22, 2017 18:09
[2017-11-22] MEDS: guaiFENesin 100mg/5ml Liq ud ORAL PRN (18:28)
[2017-11-22 20:00] VITALS: BP 94/69
[2017-11-22] MEDS: Tamsulosin 0.4mg cap ORAL SCH (22:40)
[2017-11-23] VITALS: BP 94/65
[2017-11-23] MEDS: Ipratropium 0.02% Inh Soln 2.5ml UD HHN PRN (01:34)
[2017-11-23] MEDS ORDERED: Ipratropium 0.02% Inh Soln 2.5ml UD HHN PRN (03:15)
[2017-11-23 04:00] VITALS: BP 90/70
[2017-11-23] MEDS: traMADol 50mg tab ORAL PRN ×3 (04:29→22:03)
--- NOTE | 2017-11-23 04:30 | Consultation ---
DATE OF CONSULTATION: 11/22/2017 NOTE: POOR AUDIO CARDIOLOGY CONSULTATION CONSULTING PHYSICIAN: Jaya Bowers M.D. REFERRING PHYSICIAN: Shobha Tovar M.D. REASON FOR CONSULTATION: Management of severe cardiomyopathy, prolonged QT, and evaluation of the patient's defibrillator and atrial fibrillation. HISTORY OF PRESENT ILLNESS: The patient is a 66-year-old gentleman with history of hypertension, paroxysmal atrial fibrillation as well as history of severe cardiomyopathy with EF of 12% on recent echocardiogram in October 2017. The patient also has history of biventricular defibrillator implantation in July 2017 in [place]. [facility] increasing shortness of breath. The patient was also recently admitted to 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 The patient was started on Tamiflu and fluconazole, and the final cultures and serologies from [facility] came back positive. The patient was also evaluated by Dr. Varner, who recommended itraconazole and Diflucan regimen. The patient, however, has prolonged QT. it worsened by itraconazole or Diflucan, as the patient is also on amiodarone. At the time of my evaluation, the patient denies any chest pain or shortness of breath. PAST MEDICAL HISTORY: 1. Hypertension. 2. Severe cardiomyopathy, EF of 12%. 3. Status post atrial biventricular defibrillator implantation. 4. Paroxysmal atrial fibrillation. 5. Hyperlipidemia. 6. COPD. 7. Coccidioidomycosis. SOCIAL HISTORY: He lives in retirement. Does not smoke or drink alcohol. FAMILY HISTORY: Noncontributory. REVIEW OF SYSTEMS: Performed and was negative other than what was mentioned in the history of present illness. PHYSICAL EXAMINATION: VITAL SIGNS: Blood pressure 101/71, pulse 80, respirations 18, and temperature 97.2 degrees. HEAD AND NECK: Shows positive JVD. LUNGS: Coarse rhonchi. CARDIOVASCULAR: Shows regular S1 and S2 with no gallop. Defibrillator in the left subclavian area. ABDOMEN: Soft. EXTREMITIES: No pitting edema. LABORATORY AND DIAGNOSTIC DATA: His labs show white count 3.8, hemoglobin 11.2, hematocrit 36.4, and platelet count 204. Sodium 142, potassium 3.6, BUN of 29, creatinine 1.2, and glucose of 132. Troponin 0.17 and 0.15. BNP 10,000. ASSESSMENT AND PLAN: 1. Paroxysmal atrial fibrillation. We will discontinue amiodarone in the fact that the patient would need treatments with antibiotics. Even though the patient has a defibrillator that will probably protect him, but I am afraid he may go to torsade de pointes and polymorphic ventricular tachycardia that may not respond to defibrillator therapy. 2. Status post atrial biventricular defibrillator implantation. We will find out the brand and interrogate the implantable cardioverter defibrillator for further evaluation. 3. Paroxysmal atrial fibrillation, currently off anticoagulation except for aspirin. Again, we will discontinue amiodarone and increase Lopressor 25 mg b.i.d. We will interrogate the implantable cardioverter defibrillator of atrial fibrillation. 4. Severe cardiomyopathy, ejection fraction of only 15% on heart failure therapy on losartan, metoprolol, Lasix, and Aldactone. 5. Coccidioidomycosis, under the management of Dr. Autumn Varner. The patient is on fluconazole 200 mg daily as well as vancomycin. Thank you very much for allowing me to participate in the care of this patient. Please do not hesitate to contact me for any questions regarding my evaluation. Jaya Bowers M.D. DR: Peter JOB#: [id number] CC:
[2017-11-23] MEDS: Heparin 5000 units/ml inj SUBQ SCH ×3 (06:00→22:00)
[2017-11-23 08:00] VITALS: BP 90/71
[2017-11-23] MEDS: Metoprolol 25mg tab ORAL SCH (09:00)
[2017-11-23] MEDS: Losartan 25mg tab ORAL SCH (09:00)
[2017-11-23] MEDS: Bisacodyl EC 5mg tab ORAL SCH (09:07)
[2017-11-23] MEDS: Aspirin EC 81mg tab ORAL SCH (09:07)
[2017-11-23] MEDS: guaiFENesin 100mg/5ml Liq ud ORAL PRN (09:07)
[2017-11-23] MEDS: Docusate 100mg cap ORAL SCH (09:07)
[2017-11-23] MEDS: Fluconazole 100mg tab ORAL SCH (09:08)
[2017-11-23 12:00] VITALS: BP 105/61
[2017-11-23] MEDS: Vancomycin 1gm/D5W 275ml IVPB SCH ×2 (12:28)
[2017-11-23] MEDS ORDERED: Fluconazole 100mg tab ORAL ONE (15:00)
[2017-11-23 16:00] VITALS: BP_SYST 101; BP_DIAS 6; BP_DIAS 66
--- NOTE | 2017-11-23 16:12 | Cardiac Electrophysiology PN ---
Assessment/Plan Assessment/Plan 1. Paroxysmal atrial fibrillation. Off amiodarone in the fact that the patient would need Fluconazole treatments with antibiotics. Even though the patient has a defibrillator that will probably protect him, but I am afraid he may go to torsade de pointes and polymorphic ventricular tachycardia that may not respond to defibrillator therapy. 2. Status post Medtronic atrial biventricular defibrillator implantation. 3. Paroxysmal atrial fibrillation, currently off anticoagulation except for aspirin and Lopressor 25 mg b.i.d. 4. Severe cardiomyopathy, ejection fraction of only 15% on heart failure therapy on losartan, metoprolol, Lasix, and Aldactone. 5. Coccidioidomycosis, under the management of Dr. Autumn Varner. The patient is on fluconazole 200 mg daily DW RN Subjective Subjective Comfortable in NAD. Had 3 beats ov VT overnight. Remained in SR. Objective Last 24 Hour Vital Signs Date Time Temp Pulse Resp B/P (MAP) Pulse Ox O2 Delivery O2 Flow Rate FiO2 11/23/17 12:00 97.2 92 20 105/61 96 Nasal Cannula 2.0 11/23/17 12:00 96 11/23/17 08:00 97.0 95 20 90/71 100 Nasal Cannula 2.0 11/23/17 08:00 96 11/23/17 05:28 98.0 11/23/17 04:00 97.3 95 16 90/70 100 11/23/17 04:00 99 11/23/17 01:37 79 18 100 Nasal Cannula 2.0 11/23/17 01:30 86 18 100 Nasal Cannula 2.0 11/23/17 00:00 98.0 90 18 94/65 95 Nasal Cannula 11/23/17 00:00 94 11/22/17 23:10 98.0 11/22/17 21:09 80 18 100 Nasal Cannula 2.0 11/22/17 21:00 87 20 97 Nasal Cannula 2.0 11/22/17 20:00 97.8 95 20 94/69 97 Intake and Output 11/22/17 11/23/17 19:00 07:00 Intake Total 727.416 ml Output Total 400 ml 420 ml Balance 327.416 ml -420 ml Intake Oral 360 ml IV Total 367.416 ml Output Urine Total 400 ml 420 ml # Bowel Movements 1 Microbiology Date/Time Source Procedure Growth Status 11/21/17 19:20 Blood Blood Culture - Preliminary NO GROWTH AFTER 24 HOURS Resulted 11/21/17 19:10 Blood Blood Culture - Preliminary NO GROWTH AFTER 24 HOURS Resulted Objective HEAD AND NECK: Shows positive JVD. LUNGS: Coarse rhonchi. CARDIOVASCULAR: Shows regular S1 and S2 with no gallop. Defibrillator in the left subclavian area. ABDOMEN: Soft. EXTREMITIES: No pitting edema. HECTOR MCCALL Nov 23, 2017 16:12
--- NOTE | 2017-11-23 19:12 | Infectious Diseases Prog Note ---
Assessment/Plan Assessment/Plan ASSESSMENT AND PLAN: 1. cocci pna and infection, r/o disseminated infectio, 11/30 gram + blood cultures , ? contaminant - increase diflucan to 400 mg daily, amiodarone discontinued - patient will need at least 6 months treatment with f/u with primary/ID md's and f/u serology - continue vancomycin pending blood culture identification, f/u blood cultures negative - limited bone scan negative, patient refuses LP - d/w Dr. Craig and Dr. Marquez - watch for QT prolongation/arrhythmias on telemetry while on Diflucan 2. The patient has gram-positive cocci in chains 1 bottle in the blood. The patient will be started on vancomycin to cover Streptococcus and Enterococcus. Pending culture results. The patient may need an echo to rule out endocarditis even though this will be unlikely with only 1 bottle being positive. Check surveillance blood cultures. Continue vancomycin for now. Pending identification. 3. History of positive latent tuberculosis but follow up TB gold was negative. The patient is status post remote treatment which was discontinued. 4. History of influenza B infection status post treatment. 5. Right upper lobe density. CT scan of chest at [facility] likely coccidioidomycosis. 6. Cardiomyopathy. 7. Low ejection fraction of 12%. 8. History of QT prolongation. 9. Hypertension. 10. Atrial fibrillation. 11. Pacemaker. 12. Hyperlipidemia. 13. Benign prostatic hypertrophy. 14. Chronic obstructive pulmonary disease. 15. Systolic congestive heart failure. 16. I believe social history of possibly smoke in the past, based on chronic obstructive pulmonary disease. 17. Family history is noncontributory. 18. MAR was noted. 19. Case was discussed with RN. 20. No known drug allergies. 21. Continue treatment per primary consultants. 22. Skin care protocol. 23. telemetry monitoring. Consider daily EKGs. 24. Notes and records were noted. 25. Orders were entered. 26. mrsa colonization and isolation Subjective Constitutional: Denies: fever HEENT: Denies: congestion Respiratory: Denies: shortness of breath Cardiovascular: Denies: chest pain Gastrointestinal/Abdominal: Denies: nausea, vomiting, diarrhea Genitourinary: Denies: dysuria Neurologic: Denies: headache, numbness, weakness Psychiatric: Denies: depression Skin: Denies: rash Hematologic: Denies: bleeding Musculoskeletal: Denies: pain Allergies: Coded Allergies: No Known Allergies (Unverified , 11/20/17) Objective Vital Signs Last 24 Hour Vital Signs Date Time Temp Pulse Resp B/P (MAP) Pulse Ox O2 Delivery O2 Flow Rate FiO2 11/23/17 16:00 98 11/23/17 16:00 97.0 88 20 101/66 96 Nasal Cannula 2.0 11/23/17 12:00 97.2 92 20 105/61 96 Nasal Cannula 2.0 11/23/17 12:00 96 11/23/17 08:00 97.0 95 20 90/71 100 Nasal Cannula 2.0 11/23/17 08:00 96 11/23/17 05:28 98.0 11/23/17 04:00 97.3 95 16 90/70 100 11/23/17 04:00 99 11/23/17 01:37 79 18 100 Nasal Cannula 2.0 28 11/23/17 01:30 86 18 100 Nasal Cannula 2.0 28 11/23/17 00:00 98.0 90 18 94/65 95 Nasal Cannula 11/23/17 00:00 94 11/22/17 23:10 98.0 11/22/17 21:09 80 18 100 Nasal Cannula 2.0 28 11/22/17 21:00 87 20 97 Nasal Cannula 2.0 28 11/22/17 20:00 97.8 95 20 94/69 97 Height (Feet): 5 Height (Inches): 6.00 Weight (Pounds): 125 General Appearance: no acute distress HEENT: normocephalic, atraumatic, anicteric, mucous membranes moist, EOMI, pharynx normal, supple, no JVD Respiratory/Chest: lungs clear, normal breath sounds, no respiratory distress, no accessory muscle use Cardiovascular: normal rate, regular rhythm, no gallop/murmur, no JVD Abdomen: normal bowel sounds, soft, non tender, no organomegaly, non distended Genitourinary: other - no bowie, no cva pain Extremities: no cyanosis Skin: no rash Neurologic/Psychiatric: data examination clerk II-XII grossly normal, alert, oriented x 3, responsive Lymphatic: no neck adenopathy Musculoskeletal: no effusion Objective 11/22 - chest x-ray - Moderate cardiomegaly again demonstrated. Pacemaker noted. Mild interstitial edema again noted. IMPRESSION: No change from the last exam Microbiology Date/Time Source Procedure Growth Status 11/21/17 19:20 Blood Blood Culture - Preliminary NO GROWTH AFTER 24 HOURS Resulted 11/20/17 09:40 Nasal Nares MRSA Culture - Final Staphylococcus Aureus - Mrsa Complete 11/20/17 09:40 Rectum VRE Culture - Final NO VANCOMYCIN RESISTANT ENTEROCOCCUS ... Complete Microbiology Date/Time Source Procedure Growth Status 11/21/17 19:20 Blood Blood Culture - Preliminary NO GROWTH AFTER 24 HOURS Resulted 11/21/17 19:10 Blood Blood Culture - Preliminary NO GROWTH AFTER 24 HOURS Resulted Labs Test 11/21/17 04:40 11/22/17 08:50 White Blood Count 4.4 K/UL (4.8-10.8) 3.8 K/UL (4.8-10.8) Red Blood Count 4.01 M/UL (4.70-6.10) 3.72 M/UL (4.70-6.10) Hemoglobin 12.2 G/DL (14.2-18.0) 11.2 G/DL (14.2-18.0) Hematocrit 38.6 % (42.0-52.0) 36.4 % (42.0-52.0) Mean Corpuscular Volume 96 FL (80-99) 98 FL (80-99) Mean Corpuscular Hemoglobin 30.6 PG (27.0-31.0) 30.2 PG (27.0-31.0) Mean Corpuscular Hemoglobin Concent 31.8 G/DL (32.0-36.0) 30.8 G/DL (32.0-36.0) Red Cell Distribution Width 16.3 % (11.6-14.8) 16.3 % (11.6-14.8) Platelet Count 213 K/UL (150-450) 204 K/UL (150-450) Mean Platelet Volume 6.1 FL (6.5-10.1) 6.2 FL (6.5-10.1) Neutrophils (%) (Auto) 60.6 % (45.0-75.0) 62.0 % (45.0-75.0) Lymphocytes (%) (Auto) 30.0 % (20.0-45.0) 26.3 % (20.0-45.0) Monocytes (%) (Auto) 7.3 % (1.0-10.0) 8.6 % (1.0-10.0) Eosinophils (%) (Auto) 1.4 % (0.0-3.0) 2.3 % (0.0-3.0) Basophils (%) (Auto) 0.7 % (0.0-2.0) 0.7 % (0.0-2.0) Sodium Level 145 MMOL/L (136-145) 142 MMOL/L (136-145) Potassium Level 3.8 MMOL/L (3.5-5.1) 3.6 MMOL/L (3.5-5.1) Chloride Level 108 MMOL/L (98-107) 108 MMOL/L (98-107) Carbon Dioxide Level 31 MMOL/L (21-32) 27 MMOL/L (21-32) Anion Gap 6 mmol/L (5-15) 7 mmol/L (5-15) Blood Urea Nitrogen 28 mg/dL (7-18) 29 mg/dL (7-18) Creatinine 1.2 MG/DL (0.55-1.30) 1.2 MG/DL (0.55-1.30) Estimat Glomerular Filtration Rate > 60 mL/min (>60) > 60 mL/min (>60) Glucose Level 93 MG/DL (74-106) 132 MG/DL (74-106) Calcium Level 7.7 MG/DL (8.5-10.1) 7.7 MG/DL (8.5-10.1) Total Bilirubin 0.5 MG/DL (0.2-1.0) 0.4 MG/DL (0.2-1.0) Aspartate Amino Transf (AST/SGOT) 18 U/L (15-37) 17 U/L (15-37) Alanine Aminotransferase (ALT/SGPT) 21 U/L (12-78) 15 U/L (12-78) Alkaline Phosphatase 70 U/L (46-116) 67 U/L (46-116) Troponin I 0.152 ng/mL (0.000-0.056) Total Protein 7.0 G/DL (6.4-8.2) 6.7 G/DL (6.4-8.2) Albumin 2.3 G/DL (3.4-5.0) 2.3 G/DL (3.4-5.0) Globulin 4.7 g/dL 4.4 g/dL Albumin/Globulin Ratio 0.5 (1.0-2.7) 0.5 (1.0-2.7) Pro-B-Type Natriuretic Peptide 42756 pg/mL (0-125) Current Medications Medications (Trade) Dose Ordered Sig/Sanjay Route PRN Reason Start Time Stop Time Status Last Admin Dose Admin Acetaminophen (Tylenol) 650 mg Q4H PRN ORAL Prn Headache/Temp > 101 11/20/17 13:00 12/20/17 12:59 11/22/17 22:40 Aspirin (Ecotrin) 81 mg DAILY ORAL 11/20/17 14:00 12/20/17 13:59 11/23/17 09:07 Bisacodyl (Dulcolax) 5 mg DAILY ORAL 11/21/17 09:00 12/21/17 08:59 11/23/17 09:07 Docusate Sodium (Colace) 100 mg DAILY ORAL 11/21/17 09:00 12/21/17 08:59 11/23/17 09:07 Fluconazole (Diflucan) 400 mg DAILY ORAL 11/24/17 09:00 12/01/17 08:59 Furosemide (Lasix) 40 mg BID IV 11/20/17 18:00 12/20/17 17:59 11/21/17 18:23 Guaifenesin (Robitussin) 200 mg Q4H PRN ORAL For Cough 11/22/17 18:15 12/22/17 18:14 11/23/17 09:07 Heparin Sodium (Porcine) (Heparin 5000 units/ml) 5,000 units EVERY 8 HOURS SUBQ 11/20/17 14:00 12/20/17 13:59 11/22/17 22:43 Ipratropium [place] (Atrovent) 500 mcg Q4H PRN HHN Shortness of Breath 11/23/17 03:15 11/28/17 03:14 Losartan Potassium (Cozaar) 25 mg DAILY ORAL 11/20/17 18:00 12/20/17 17:59 11/21/17 09:06 Metoprolol Tartrate (Lopressor) 25 mg DAILY ORAL 11/21/17 09:00 12/21/17 08:59 11/21/17 09:07 Spironolactone (Aldactone) 25 mg DAILY ORAL 11/20/17 14:00 12/20/17 13:59 11/21/17 09:06 Tamsulosin HCl (Flomax) 0.4 mg BEDTIME ORAL 11/20/17 21:00 12/20/17 20:59 11/22/17 22:40 Tramadol HCl (Ultram) 50 mg Q6H PRN ORAL Moderate Pain (Pain Scale 4-6) 11/23/17 03:15 11/30/17 03:14 11/23/17 13:31 Vancomycin HCl (Vanco rx to dose) 1 ea DAILY PRN MISC Per rx protocol 11/21/17 11:00 12/21/17 10:59 Vancomycin HCl 1 gm/Dextrose 275 ml @ 183.708 mls/hr Q24H IVPB 11/21/17 13:00 11/26/17 12:59 11/23/17 12:28 AMRÍA ESTRELLA Nov 23, 2017 19:12
[2017-11-23 20:00] VITALS: BP 94/62
--- NOTE | 2017-11-23 21:24 | General Progress Note ---
Assessment/Plan Status: stable Assessment/Plan (1) BPH (benign prostatic hyperplasia) ICD Codes: N40.0 - Benign prostatic hyperplasia without lower urinary tract symptoms SNOMED: 550435302 (2) HTN (hypertension) ICD Codes: I10 - Essential (primary) hypertension SNOMED: 88480383 (3) HLD (hyperlipidemia) ICD Codes: E78.5 - Hyperlipidemia, unspecified SNOMED: 63826317 (4) CHF exacerbation ICD Codes: I50.9 - Heart failure, unspecified SNOMED: 33869656 (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 - Pulmonary coccidioidomycosis, unspecified SNOMED: 512574659 (6) Atrial fibrillation, paroxysmal ICD Codes: I48.91 - Unspecified atrial fibrillation SNOMED: 15405399 (7) Respiratory distress ICD Codes: R06.03 - Acute respiratory distress SNOMED: 334541791 (8) CHF (congestive heart failure) ICD Codes: I50.9 - Heart failure, unspecified SNOMED: 97314218 (9) COPD exacerbation ICD Codes: J44.1 - Chronic obstructive pulmonary disease with (acute) exacerbation SNOMED: 425521312433705 (10) Prolonged Q-T interval on ECG ICD Codes: R94.31 - Abnormal electrocardiogram [ECG] [EKG] SNOMED: 633083358 (11) Elevated troponin ICD Codes: R74.8 - Abnormal levels of other serum enzymes SNOMED: 246359797, 680329856 (12) Bacteremia ICD Codes: R78.81 - Bacteremia SNOMED: 2051159 (13) Depressed left ventricular ejection fraction / Cardiomyopathy / Acute on chronic systolic and diastolic heart failure ICD Codes: R09.89 - Other specified symptoms and signs involving the circulatory and respiratory systems SNOMED: 755870117 Status: progressing Assessment/Plan - Cont IIV vancomycin per pharmacy protocol - cont for now pending blood cx results/finalization - monitor Cr - IV lasix 40mg BID - strict I&Os - 1.5 L fluid restriction - Trend BNP - trend troponins - downtrending - serial CXR - per cardiology, patient's QT interval cannot be followed as patient is paced. Per cards, okay to start patient on fluconazole. - incr to fluconazole 400mg PO qd - d/c amiodarone (Ok per cardiology) - check bone scan to rule out disseminated cocci --> negative - ECHO with 12% EF from [facility] on 10/2017 - Cardiology consulted - ID consulted - Resume home meds. Tamiflu course finished - Pain control and supportive care - bowel regimen - FULL CODE d/w RN, patient, and all involved consultants. Total patient care and coordination time spent 39 minutes. D/w pt, RN, SW/CM and ID regarding mgmt and dispo Subjective Date patient seen: Nov 23, 2017 Time patient seen: 15:00 ROS Limited/Unobtainable: No Constitutional: Reports: weakness HEENT: Reports: no symptoms Cardiovascular: Reports: no symptoms Respiratory: Reports: cough, shortness of breath Gastrointestinal/Abdominal: Reports: no symptoms Genitourinary: Reports: no symptoms Neurologic/Psychiatric: Reports: no symptoms Endocrine: Reports: no symptoms Hematologic/Lymphatic: Reports: no symptoms Allergies: Coded Allergies: No Known Allergies (Unverified , 11/20/17) All Systems: reviewed and negative except above Subjective No acute o/n events - states that he feels better. denies sob or chest pain today. denies n/v, f/c, d/c, abdominal pain - discussed with cards and patient is paced and therefore cannot follow QT - blood cultures with GPC in pairs and chains in 1/4 bottles. Repeat blood cultures NGTD - bone scan done was negative Objective Last 24 Hour Vital Signs Date Time Temp Pulse Resp B/P (MAP) Pulse Ox O2 Delivery O2 Flow Rate FiO2 11/23/17 16:00 98 11/23/17 16:00 97.0 88 20 101/66 96 Nasal Cannula 2.0 11/23/17 12:00 97.2 92 20 105/61 96 Nasal Cannula 2.0 11/23/17 12:00 96 11/23/17 08:00 97.0 95 20 90/71 100 Nasal Cannula 2.0 11/23/17 08:00 96 11/23/17 05:28 98.0 11/23/17 04:00 97.3 95 16 90/70 100 11/23/17 04:00 99 11/23/17 01:37 79 18 100 Nasal Cannula 2.0 11/23/17 01:30 86 18 100 Nasal Cannula 2.0 11/23/17 00:00 98.0 90 18 94/65 95 Nasal Cannula 11/23/17 00:00 94 11/22/17 23:10 98.0 Intake and Output 11/22/17 11/23/17 19:00 07:00 Intake Total 727.416 ml Output Total 400 ml 420 ml Balance 327.416 ml -420 ml Intake Oral 360 ml IV Total 367.416 ml Output Urine Total 400 ml 420 ml # Bowel Movements 1 Height (Feet): 5 Height (Inches): 6.00 Weight (Pounds): 125 Objective General: alert, cooperative, no distress, appears stated age, thin Head: normocephalic, without obvious abnormality, atraumatic Eyes: conjunctivae/corneas clear. PERRL, EOM's intact Throat: lips, mucosa, and tongue normal. MMM Neck: supple, symmetrical, trachea midline, and no JVD Lungs: clear to auscultation bilaterally Heart: regular rate and rhythm, S1, S2 normal, no murmur, click, rub or gallop Abdomen: soft, non-tender, non-distended, bowel sounds normal; no masses or organomegaly Extremities: extremities normal, atraumatic, no cyanosis or edema Pulses: 2+ and symmetric Skin: skin color, texture, turgor normal; no rashes or lesions Neurologic: grossly normal, no focal deficits Kiara Kulkarni M.D. Nov 23, 2017 21:24
[2017-11-23] MEDS: Tamsulosin 0.4mg cap ORAL SCH (22:02)
[2017-11-24] VITALS: BP 95/63
[2017-11-24 04:00] VITALS: BP 86/61
[2017-11-24] MEDS: Heparin 5000 units/ml inj SUBQ SCH ×2 (06:00→14:00)
[2017-11-24 08:00] VITALS: BP 97/70
[2017-11-24] MEDS: Docusate 100mg cap ORAL SCH (08:34)
[2017-11-24] MEDS: guaiFENesin 100mg/5ml Liq ud ORAL PRN (08:34)
[2017-11-24] MEDS: Bisacodyl EC 5mg tab ORAL SCH (08:34)
[2017-11-24] MEDS: Aspirin EC 81mg tab ORAL SCH (08:34)
[2017-11-24] MEDS: Losartan 25mg tab ORAL SCH (08:35)
[2017-11-24] MEDS: Metoprolol 25mg tab ORAL SCH (08:35)
[2017-11-24 08:43] LABS: BASOPHILS % (AUTO) 1.1 % (0.0-2.0); EOSINOPHILS % (AUTO) 2.3 % (0.0-3.0); HEMATOCRIT 40.2 % (42.0-52.0); HEMOGLOBIN 12.4 G/DL (14.2-18.0); LYMPHOCYTES % (AUTO) 36.4 % (20.0-45.0); MEAN CORPUSCULAR VOLUME 97 FL (80-99); MONOCYTES % (AUTO) 9.3 % (1.0-10.0); NEUTROPHILS % (AUTO) 50.9 % (45.0-75.0); PLATELET COUNT 236 K/UL (150-450); RED BLOOD COUNT 4.16 M/UL (4.70-6.10); RED CELL DISTRIBUTION WIDTH 16.4 % (11.6-14.8)
[2017-11-24] MEDS: Spironolactone 25mg tab ORAL SCH (09:00)
[2017-11-24] MEDS ORDERED: Fluconazole 100mg tab ORAL SCH (09:00)
[2017-11-24 09:13] LABS: ALANINE AMINOTRANSFERASE 19 U/L (12-78); ALBUMIN 2.6 G/DL (3.4-5.0); ALBUMIN/GLOBULIN RATIO 0.5 (1.0-2.7); ALKALINE PHOSPHATASE 69 U/L (46-116); ANION GAP 6 mmol/L (5-15); ASPARTATE AMINO TRANSFERASE 30 U/L (15-37); BILIRUBIN,TOTAL 0.9 MG/DL (0.2-1.0); BLOOD UREA NITROGEN 34 mg/dL (7-18); CARBON DIOXIDE 26 MMOL/L (21-32); CHLORIDE 105 MMOL/L (98-107); POTASSIUM 5.6 MMOL/L (3.5-5.1); SODIUM 137 MMOL/L (136-145)
[2017-11-24 12:00] VITALS: BP 93/65
[2017-11-24] MEDS: Vancomycin 1gm/D5W 275ml IVPB SCH ×2 (13:34)
[2017-11-24] MEDS ORDERED: FUROSEMIDE40 MG ORAL (14:38)
[2017-11-24] MEDS ORDERED: DIFLUCAN100 MG ORAL (14:39)
[2017-11-24 16:21] LABS: ANION GAP 10 mmol/L (5-15); BLOOD UREA NITROGEN 38 mg/dL (7-18); CALCIUM 8.4 MG/DL (8.5-10.1); CARBON DIOXIDE 25 MMOL/L (21-32); CHLORIDE 104 MMOL/L (98-107); CREATININE 1.2 MG/DL (0.55-1.30); POTASSIUM 4.7 MMOL/L (3.5-5.1); SODIUM 139 MMOL/L (136-145)
--- NOTE | 2017-11-24 17:27 | Cardiac Electrophysiology PN ---
Assessment/Plan Assessment/Plan 1. Paroxysmal atrial fibrillation. Off amiodarone in the fact that the patient would need Fluconazole treatments with antibiotics. 2. Status post Medtronic atrial biventricular defibrillator implantation. Nl Fx 3. Paroxysmal atrial fibrillation, currently off anticoagulation except for aspirin and Lopressor 25 mg b.i.d. 4. Severe cardiomyopathy, ejection fraction of only 15% on heart failure therapy on losartan, metoprolol, Lasix, and Aldactone. 5. Coccidioidomycosis, under the management of Dr. Autumn Varner. The patient is on fluconazole 200 mg daily 6. Hyperkalemia 5.6 decreased to 4,7. Losartan held for today. DW Dr Craig DC today Subjective Subjective Comfortable in NAD. Remained in SR overnight. Objective Last 24 Hour Vital Signs Date Time Temp Pulse Resp B/P (MAP) Pulse Ox O2 Delivery O2 Flow Rate FiO2 11/24/17 12:00 97.4 80 19 93/65 95 11/24/17 08:35 91 86/61 11/24/17 08:00 97.3 92 18 97/70 92 11/24/17 08:00 93 11/24/17 04:00 97.0 82 21 86/61 99 11/24/17 04:00 91 11/24/17 00:00 97.3 62 22 95/63 97 11/24/17 00:00 92 11/23/17 23:02 97.0 11/23/17 20:00 97.0 93 22 94/62 100 11/23/17 20:00 95 Intake and Output 11/23/17 11/24/17 19:00 07:00 Intake Total 635.000 ml Output Total 450 ml Balance 185.000 ml Intake Oral 360 ml IV Total 275.000 ml Output Urine Total 450 ml # Voids 5 # Bowel Movements 3 Laboratory Tests Test 11/24/17 07:30 11/24/17 12:10 White Blood Count 4.0 K/UL (4.8-10.8) L Red Blood Count 4.16 M/UL (4.70-6.10) L Hemoglobin 12.4 G/DL (14.2-18.0) L Hematocrit 40.2 % (42.0-52.0) L Mean Corpuscular Volume 97 FL (80-99) Mean Corpuscular Hemoglobin 29.7 PG (27.0-31.0) Mean Corpuscular Hemoglobin Concent 30.7 G/DL (32.0-36.0) L Red Cell Distribution Width 16.4 % (11.6-14.8) H Platelet Count 236 K/UL (150-450) Mean Platelet Volume 6.0 FL (6.5-10.1) L Neutrophils (%) (Auto) 50.9 % (45.0-75.0) Lymphocytes (%) (Auto) 36.4 % (20.0-45.0) Monocytes (%) (Auto) 9.3 % (1.0-10.0) Eosinophils (%) (Auto) 2.3 % (0.0-3.0) Basophils (%) (Auto) 1.1 % (0.0-2.0) Sodium Level 137 MMOL/L (136-145) 139 MMOL/L (136-145) Potassium Level 5.6 MMOL/L (3.5-5.1) H 4.7 MMOL/L (3.5-5.1) Chloride Level 105 MMOL/L (98-107) 104 MMOL/L (98-107) Carbon Dioxide Level 26 MMOL/L (21-32) 25 MMOL/L (21-32) Anion Gap 6 mmol/L (5-15) 10 mmol/L (5-15) Blood Urea Nitrogen 34 mg/dL (7-18) H 38 mg/dL (7-18) H Creatinine 1.0 MG/DL (0.55-1.30) 1.2 MG/DL (0.55-1.30) Estimat Glomerular Filtration Rate > 60 mL/min (>60) > 60 mL/min (>60) Glucose Level 96 MG/DL (74-106) 107 MG/DL (74-106) H Calcium Level 8.0 MG/DL (8.5-10.1) L 8.4 MG/DL (8.5-10.1) L Total Bilirubin 0.9 MG/DL (0.2-1.0) Aspartate Amino Transf (AST/SGOT) 30 U/L (15-37) Alanine Aminotransferase (ALT/SGPT) 19 U/L (12-78) Alkaline Phosphatase 69 U/L (46-116) Total Protein 7.6 G/DL (6.4-8.2) Albumin 2.6 G/DL (3.4-5.0) L Globulin 5.0 g/dL Albumin/Globulin Ratio 0.5 (1.0-2.7) L Vancomycin Level Trough 9.2 ug/mL (5.0-12.0) Microbiology Date/Time Source Procedure Growth Status 11/21/17 19:20 Blood Blood Culture - Preliminary NO GROWTH AFTER 48 HOURS Resulted 11/21/17 19:10 Blood Blood Culture - Preliminary NO GROWTH AFTER 48 HOURS Resulted Objective HEAD AND NECK: Mild JVD. LUNGS: Coarse rhonchi. CARDIOVASCULAR: Shows regular S1 and S2 with no gallop. Defibrillator in the left subclavian area. ABDOMEN: Soft. EXTREMITIES: No pitting edema. HECTOR MCCALL Nov 24, 2017 17:27
[2017-11-25] MEDS ORDERED: Vancomycin 750mg/NS 250ml IVPB SCH (02:00)
--- NOTE | 2017-11-26 13:10 | Discharge Summary ---
Discharge Summary Hospital Course Date of Admission Nov 20, 2017 at 07:00 Date of Discharge Nov 24, 2017 at 16:45 Admitting Diagnosis copd exacerbation, hx of chf HPI 66 year old male with a PMH of A. fibb, HTN, HLD, BPH, COPD, and systolic CHF ( EF 12% done on 10/2017) presented from [facility] for increasing shortness of breath. 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 Patient was treated with tamiflu and fluconazole. Final cocci serology from [facility] came back positive. Patient states that he has been feeling increasing shortness of breath for the last 1 day with associated nausea. Also reports non-productive cough. Denies chest pain, vomiting, abdominal pain, fevers, chills. In the ED, BNP was elevated and CXR showed congestive heart failure. Patient was given IV lasix with good response. Consultations Cardiology, [facility] Hospital Course Pt was admitted to [facility] and treated for CHF with lasix IV w/ good response. He was continued on diflucan 200mg PO daily for cocci pneumonia. Pt had bone scan which was negative. He adamantly refused LP. Pt found to have 1/4 blood cultures w/ GPC which ultimately showed strep viridans. Repeat blood cultures negative. Per ID, OK to stop vancomycin. Given prolonged QT, cardiology discontinued amiodarone and so diflucan dose was increased to 400mg PO daily. Discharge physical exam: General: alert, cooperative, no distress, appears stated age Head: normocephalic, without obvious abnormality, atraumatic Eyes: conjunctivae/corneas clear. PERRL, EOM's intact Throat: lips, mucosa, and tongue normal. MMM Neck: supple, symmetrical, trachea midline, and no JVD Lungs: clear to auscultation bilaterally Heart: regular rate and rhythm, S1, S2 normal, no murmur, click, rub or gallop Abdomen: soft, non-tender, non-distended, bowel sounds normal Extremities: extremities normal, atraumatic, no cyanosis or edema Pulses: 2+ and symmetric Skin: skin color, texture, turgor normal; no rashes or lesions Neurologic: grossly normal, no focal deficits Discharge diagnoses: (1) BPH (benign prostatic hyperplasia) ICD Codes: N40.0 - Benign prostatic hyperplasia without lower urinary tract symptoms SNOMED: 345912383 (2) HTN (hypertension) ICD Codes: I10 - Essential (primary) hypertension SNOMED: 21509647 (3) HLD (hyperlipidemia) ICD Codes: E78.5 - Hyperlipidemia, unspecified SNOMED: 33068790 (4) CHF exacerbation ICD Codes: I50.9 - Heart failure, unspecified SNOMED: 17651198 (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 - Pulmonary coccidioidomycosis, unspecified SNOMED: 357038986 (6) Atrial fibrillation, paroxysmal ICD Codes: I48.91 - Unspecified atrial fibrillation SNOMED: 78923867 (7) Respiratory distress ICD Codes: R06.03 - Acute respiratory distress SNOMED: 963712324 (8) CHF (congestive heart failure) ICD Codes: I50.9 - Heart failure, unspecified SNOMED: 50706233 (9) COPD exacerbation ICD Codes: J44.1 - Chronic obstructive pulmonary disease with (acute) exacerbation SNOMED: 487085531292649 (10) Prolonged Q-T interval on ECG ICD Codes: R94.31 - Abnormal electrocardiogram [ECG] [EKG] SNOMED: 369533830 (11) Elevated troponin ICD Codes: R74.8 - Abnormal levels of other serum enzymes SNOMED: 890336692, 087502191 (12) Bacteremia ICD Codes: R78.81 - Bacteremia SNOMED: 8856737 (13) Depressed left ventricular ejection fraction / Cardiomyopathy / Acute on chronic systolic and diastolic heart failure ICD Codes: R09.89 - Other specified symptoms and signs involving the circulatory and respiratory systems SNOMED: 073926152 (14) s/p Medtronic atrial biventricular defibrillator implantation (15) hyperkalemia Discharge Medications New Medications: Furosemide* (Lasix*) 40 Mg Tablet 40 MG ORAL TWICE A DAY for 30 Days, TAB 0 Refills Fluconazole* (Diflucan*) 100 Mg Tablet 400 MG ORAL DAILY for 90 Days, TAB Continued Medications: Acetaminophen (Acetaminophen) 650 Mg/20.3 Ml Solution 650 MG ORAL Q4HR PRN for Prn Headache/Temp > 101, ML 0 Refills Aspirin* (Aspir 81*) 81 Mg Tablet.dr 81 MG ORAL DAILY, TAB Bisacodyl (Dulcolax) 5 Mg Tablet.dr 5 MG PO DAILY, TAB Docusate Sodium* (Colace*) 100 Mg Capsule 100 MG ORAL DAILY, CAP Ipratropium [place] 0.5MG/2.5ML (Ipratropium [place] 0.5MG/2.5ML) 0.2 Mg/1 Ml Solution 0.5 MG HHN Q6H PRN for Shortness of Breath, #28 EA Isosorbide Dinitrate* (Isordil*) 30 Mg Tablet 30 MG ORAL DAILY, #20 TAB 0 Refills Losartan Potassium* (Losartan Potassium*) 25 Mg Tablet 25 MG ORAL DAILY, TAB Metoprolol Tartrate* (Metoprolol Tartrate*) 25 Mg Tablet 25 MG ORAL DAILY, TAB Simvastatin (Zocor) 10 Mg Tablet 10 MG ORAL BEDTIME, TAB Spironolactone* (Aldactone*) 25 Mg Tablet 25 MG ORAL DAILY, TAB Tamsulosin Hcl (Tamsulosin Hcl*) 0.4 Mg Cap.er.24h 0.4 MG ORAL BEDTIME, CAP Discontinued Medications: Amiodarone Hcl* (Amiodarone Hcl*) 400 Mg Tablet 200 MG ORAL DAILY, TAB Carvedilol* (Carvedilol*) 3.125 Mg Tablet 3.125 MG ORAL DAILY, TAB Fluconazole (Fluconazole) 100 Mg Tablet 200 MG ORAL DAILY, #7 TAB 0 Refills Furosemide* (Lasix*) 40 Mg Tablet 40 MG ORAL DAILY, TAB Heparin Sod (Porcine) (Heparin Sodium*) 5 000/1 Ml Vial 5000 UNITS SUBQ EVERY 8 HOURS, VIAL Oseltamivir Phosphate (Oseltamivir Phosphate) 75 Mg Capsule 75 MG PO BID, CAP Discharge Condition Upon Discharge: stable Discharge Disposition Patient was discharged to SNF/Subacute Facility(03) Discharge Diagnoses: Kiara Kulkarni M.D. Nov 26, 2017 13:10
--- NOTE | 2017-12-01 10:45 | Discharge Summary ---
Discharge Summary Hospital Course Date of Admission Nov 20, 2017 at 07:00 Date of Discharge Nov 24, 2017 at 16:45 Admitting Diagnosis copd exacerbation, hx of chf HPI Luc Alvarado is a 67 year old male who was admitted on Nov 20, 2017 at 07:00 for Chronic Obstructive Pulmonary Disease Exacerbation Consultations Dr. Jaya Piña Hospital Course 66 year old male with a PMH of A. fibb, HTN, HLD, BPH, COPD, and systolic CHF ( EF 12% done on 10/2017) presented from [facility] for increasing shortness of breath. 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 Patient was treated with tamiflu and fluconazole. Final cocci serology from [facility] came back positive. Patient states that he has been feeling increasing shortness of breath for the last 1 day with associated nausea. Also reports non-productive cough. Denies chest pain, vomiting, abdominal pain, fevers, chills. In the ED, BNP was elevated and CXR showed congestive heart failure. Patient was given IV lasix with good response. He was placed on strict I&Os and 1.5 L fluid restriction. Patient was seen by ID who recommended patient to be given Fluconazole, however , there was issue regarding increased risk of QT prolongation. Cardiac evaluation was done, Patient's QT interval cannot be followed as patient is paced. Per cards, okay to start patient on fluconazole. Amiodarone was discontinued. Diflucan dose increased to 400 mg daily. Bone scan to rule out disseminated cocci - negative, patient refuses LP The patient has gram-positive cocci in chains 1 bottle in the blood. The patient was started on vancomycin to cover Streptococcus and Enterococcus. He has Paroxysmal atrial fibrillation. Off amiodarone, on Lopressor 25 mg b.i.d. , off anticoagulation except for aspirin. He is status post Medtronic atrial biventricular defibrillator implantation. Interrogation done showed Nl Fx. He has severe cardiomyopathy, ejection fraction of only 15% on heart failure therapy on losartan, metoprolol, Lasix, and Aldactone. Repeat blood culture did not isolate any growth. Vancomycin discontinued. He was discharged back to SNF to continue fluconazole. Assessment/Plan Status: stable Assessment/Plan (1) BPH (benign prostatic hyperplasia) ICD Codes: N40.0 - Benign prostatic hyperplasia without lower urinary tract symptoms SNOMED: 574719594 (2) HTN (hypertension) ICD Codes: I10 - Essential (primary) hypertension SNOMED: 27009674 (3) HLD (hyperlipidemia) ICD Codes: E78.5 - Hyperlipidemia, unspecified SNOMED: 27745776 (4) CHF exacerbation ICD Codes: I50.9 - Heart failure, unspecified SNOMED: 25086522 (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 - Pulmonary coccidioidomycosis, unspecified SNOMED: 285278961 (6) Atrial fibrillation, paroxysmal ICD Codes: I48.91 - Unspecified atrial fibrillation SNOMED: 06527947 (7) Respiratory distress ICD Codes: R06.03 - Acute respiratory distress SNOMED: 470844879 (8) CHF (congestive heart failure) ICD Codes: I50.9 - Heart failure, unspecified SNOMED: 15247431 (9) COPD exacerbation ICD Codes: J44.1 - Chronic obstructive pulmonary disease with (acute) exacerbation SNOMED: 018859718423105 (10) Prolonged Q-T interval on ECG ICD Codes: R94.31 - Abnormal electrocardiogram [ECG] [EKG] SNOMED: 361778640 (11) Elevated troponin ICD Codes: R74.8 - Abnormal levels of other serum enzymes SNOMED: 848833650, 759042817 (12) Bacteremia ICD Codes: R78.81 - Bacteremia SNOMED: 6381688 (13) Depressed left ventricular ejection fraction / Cardiomyopathy / Acute on chronic systolic and diastolic heart failure ICD Codes: R09.89 - Other specified symptoms and signs involving the circulatory and respiratory systems SNOMED: 335561074 Status: progressing --I have been assigned to complete a DC summary on this account, I was not involved with the patient's management.--YINA Alvarez-- Discharge Discharge Disposition Patient was discharged to SNF/Subacute Facility(03) Discharge Diagnoses: Myra Duran NP Dec 01, 2017 10:45
--- NOTE | 2017-12-05 12:50 | Cardiology Report ---
APPROVED REPORT EXAM: Two-dimensional and M-mode echocardiogram with Doppler and color Doppler. INDICATION 239-2 M-Mode DIMENSIONS IVSd1.4 (0.7-1.1cm)Left Atrium (MM)6.0 (1.6-4.0cm) LVDd8.2 (3.5-5.6cm)Aortic Root3.2 (2.0-3.7cm) PWd1.4 (0.7-1.1cm)Aortic Cusp Exc.1.8 (1.5-2.0cm) LVDs8.1 (2.5-4.0cm) PWs1.4 cm Severe left ventricular enlargement. Global left ventricular hypokinesis. Left ventricular ejection fraction estimated to be less than 20 %. Mild left ventricular hypertrophy. No evidence of pericardial effusion. Mild left atrial enlargement. Mild right atrial enlargement. Mild right ventricular enlargement. Mild focal aortic valve sclerosis with adequate cusp excursion. Heavy thickened mitral valve leaflets with normal excursion. Moderate mitral annulus and aortic root calcification. Normal pulmonic valve structure. Normal tricuspid valve structure. IVC dilated at 3.0 cm without physiologic collapse, estimated RAP is 20 mmHg. Pacemaker wire present in the right side chambers. A color flow and spectral Doppler study was performed and revealed: Mild to moderate aortic regurgitation. Moderate to severe mitral regurgitation. Mitral inflow velocities indicates possible pseudo normalization pattern implying moderately elevated left atrial pressure (Grade II ). Mild tricuspid regurgitation. Tricuspid systolic velocities suggests peak right ventricular systolic pressure of 66 mmHg, consistent with severe pulmonary hypertension. No pulmonic regurgitation present.
== END 2017-11-24 16:45 | DRG 190 ==
LOC: EDBD 06:20 → EMR 06:39 → 2W 07:00 → EDBEDREQ 09:14 → 2E 11-21 21:36
DX: J44.1 Chronic obstructive pulmonary disease with (acute) exacerbation (principal); I50.43 Acute on chronic combined systolic (congestive) and diastolic (congestive) heart failure; R78.81 Bacteremia; I42.9 Cardiomyopathy, unspecified; I48.0 Paroxysmal atrial fibrillation; B38.0 Acute pulmonary coccidioidomycosis; E87.5 Hyperkalemia; E78.5 Hyperlipidemia, unspecified; N40.0 Benign prostatic hyperplasia without lower urinary tract symptoms; I45.81 Long QT syndrome; Z95.810 Presence of automatic (implantable) cardiac defibrillator; Z53.29 Procedure and treatment not carried out because of patient's decision for other reasons
CPT/HCPCS: 36415; 36600; 71010; 78306; 80048; 80053; 80202; 81003; 82550; 82553; 82803; 83605; 83880; 84484; 85025; 86635; 86710; 87040; 87081; 87181; 93005; 93306; 94640; 94664; 99285; J7620

== ENCOUNTER 2017-11-29 18:31 | Emergency (ER) | payer MEDICARE, MEDICAID ==
[~2017-11-29] VITALS: Ht 172.7 cm; Wt 81.6 kg
[~2017-11-29 18:31] MED LIST: AMIODARONE HCL400 M1 ORAL; ASPIR 8181 MG ORAL; CARVEDILOL3.125 MG ORAL; COLACE100 MG ORAL; DIFLUCAN100 MG ORAL; DULCOLAX5 MG PO; FLUCONAZOLE100 MG ORAL; FUROSEMIDE40 MG ORAL; HEPARIN SO5000 UNIT2 SUBQ; IPRATROPIU0.2 MG/1 M HHN; ISOSORBIDE DINI30 MG ORAL; LOSARTAN POTASS25 MG ORAL; METOPROLOL TART25 MG ORAL; OSELTAMIVIR PHO75 MG PO; SIMVASTATIN10 MG ORAL; SPIRONOLACTONE25 MG ORAL; TAMSULOSIN HCL0.4 MG ORAL; TYLENOL650 MG/20. ORAL
--- NOTE | 2017-11-29 20:14 | Emergency Room Report ---
History of Present Illness General Chief Complaint: Abdominal Pain Source: Patient, Medical Record Present Illness Allergies: Coded Allergies: No Known Allergies (Unverified , 11/20/17) Patient History Past Medical History: see triage record Past Surgical History: none Pertinent Family History: none Reviewed Nursing Documentation: PMH: Agreed, PSxH: Agreed Nursing Documentation-PMH Past Medical History: No History, Except For Hx Cardiac Problems: Yes - A. Fib. Hx Hypertension: Yes Hx Pacemaker: Yes Hx COPD: Yes Hx Cancer: No Hx Gastrointestinal Problems: No Hx Neurological Problems: No Review of Systems All Other Systems: negative except mentioned in HPI Physical Exam Vital Signs Date Time Temp Pulse Resp B/P (MAP) Pulse Ox O2 Delivery O2 Flow Rate FiO2 11/29/17 19:02 97.3 94 18 100/71 97 Room Air 2.0 Sp02 EP Interpretation: reviewed, normal General Appearance: alert, GCS 15, non-toxic, mild distress, other Head: normocephalic, atraumatic Eyes: bilateral eye normal inspection, bilateral eye PERRL, bilateral eye EOMI ENT: normal ENT inspection, normal pharynx, normal voice, moist mucus membranes Neck: normal inspection, full range of motion, supple Respiratory: normal inspection, lungs clear, normal breath sounds, no respiratory distress, no retraction, no wheezing, speaking full sentences, chest symmetrical Cardiovascular #1: normal inspection, regular rate, rhythm, normal capillary refill, edema Cardiovascular #2: 2+ radial (R), 2+ radial (L) Gastrointestinal: normal inspection, non tender, soft, non-distended, no guarding Musculoskeletal: normal inspection, back normal, normal range of motion, non- tender Neurologic: normal inspection, alert, oriented x3, responsive, motor strength/ tone normal, sensory intact, normal gait, speech normal Psychiatric: normal inspection, judgement/insight normal, memory normal Skin: normal inspection, normal color, no rash, warm/dry, well hydrated, normal turgor Medical Decision Making Diagnostic Impression: Primary Impression: Epigastric abdominal pain Additional Impression: Acute coronary syndrome Last Vital Signs Date Time Temp Pulse Resp B/P (MAP) Pulse Ox O2 Delivery O2 Flow Rate FiO2 11/29/17 19:02 97.3 94 18 100/71 97 Room Air 2.0 Disposition: ADMITTED INPATIENT Condition: Serious Lucio Andres M.D. Nov 29, 2017 20:14
[2017-11-29 21:10] VITALS: BP 100/71
[2017-11-29] MEDS ORDERED: Norco 5mg/325mg tab ORAL ONE (21:30)
[2017-11-29 22:15] LABS: ANION GAP 9 mmol/L (5-15); BLOOD UREA NITROGEN 35 mg/dL (7-18); CALCIUM 8.2 MG/DL (8.5-10.1); CARBON DIOXIDE 24 MMOL/L (21-32); CHLORIDE 106 MMOL/L (98-107); CREATININE 1.2 MG/DL (0.55-1.30); POTASSIUM 4.6 MMOL/L (3.5-5.1); SODIUM 139 MMOL/L (136-145)
[2017-11-29 22:18] LABS: INR 1.2 (0.9-1.1)
[2017-11-29 22:25] LABS: ALANINE AMINOTRANSFERASE 20 U/L (12-78); ALBUMIN/GLOBULIN RATIO 0.6 (1.0-2.7); ALKALINE PHOSPHATASE 95 U/L (46-116); ASPARTATE AMINO TRANSFERASE 24 U/L (15-37); BILIRUBIN,TOTAL 0.6 MG/DL (0.2-1.0)
[2017-11-29 22:37] LABS: BASOPHILS % (AUTO) 1.8 % (0.0-2.0); EOSINOPHILS % (AUTO) 1.9 % (0.0-3.0); HEMATOCRIT 43.3 % (42.0-52.0); HEMOGLOBIN 12.9 G/DL (14.2-18.0); LYMPHOCYTES % (AUTO) 29.3 % (20.0-45.0); MEAN CORPUSCULAR VOLUME 96 FL (80-99); MONOCYTES % (AUTO) 9.1 % (1.0-10.0); PLATELET COUNT 294 K/UL (150-450); WHITE BLOOD COUNT 4.7 K/UL (4.8-10.8)
[2017-11-29 23:10] VITALS: BP 101/69
[2017-11-29 23:55] LABS: APPEARANCE,URINE CLEAR; BILIRUBIN, URINE NEGATIVE (NEGATIVE); COLOR,URINE PALE YELLOW; GLUCOSE, URINE (UA) NEGATIVE (NEGATIVE); KETONES,URINE NEGATIVE (NEGATIVE); LEUKOCYTE ESTERASE ,URINE 1+ (NEGATIVE); NITRITE,URINE NEGATIVE (NEGATIVE); PH,URINE 6 (4.5-8.0); PROTEIN,URINE 1+ (NEGATIVE); UROBILINOGEN,URINE NORMAL MG/DL (0.0-1.0)
--- NOTE | 2017-11-29 23:58 | Emergency Room Report ---
History of Present Illness General Chief Complaint: Abdominal Pain Source: Patient, Medical Record Present Illness HPI Is a 66-year-old male with a history of severe cardiomyopathy with ejection fraction of 15%. He has an AICD. He was seen initially by Dr. Andres and signed out to me. No labs are done yet as outpatient. He was just admitted here less than 2 weeks ago for similar complaint. He was seen by approver an echocardiogram done. Patient presents with chief complaint of chest pain over his pacemaker/AICD. Has been ongoing for weeks. Worse with palpation. Also complaining of distant exertion which is unchanged. Also complaining of epigastric pain which is unchanged. No fever or chills. No cough or congestion. Worse with exertion. He said Tylenol is not helping him. Allergies: Coded Allergies: No Known Allergies (Unverified , 11/20/17) Patient History Past Medical History: see triage record, old chart reviewed, CHF, AFib Past Surgical History: other Pertinent Family History: none Social History: Reports: smoking Immunizations: other Reviewed Nursing Documentation: PMH: Agreed, PSxH: Agreed Nursing Documentation-PM Past Medical History: No History, Except For Hx Cardiac Problems: Yes - A. Fib. Hx Hypertension: Yes Hx Pacemaker: Yes Hx COPD: Yes Hx Cancer: No Hx Gastrointestinal Problems: No Hx Neurological Problems: No Review of Systems Constitutional: Denies: fever Eye: Denies: acuity changes Respiratory: Reports: shortness of breath, Denies: cough Cardiovascular: Reports: chest pain Gastrointestinal: Denies: nausea, vomiting Skin: Denies: rash Neurological: Denies: headache Physical Exam Vital Signs Date Time Temp Pulse Resp B/P (MAP) Pulse Ox O2 Delivery O2 Flow Rate FiO2 11/29/17 19:02 97.3 94 18 100/71 97 Room Air 2.0 vitals normal General Appearance: well appearing, no apparent distress Head: normocephalic, atraumatic ENT: hearing grossly normal, normal voice Neck: full range of motion, supple Respiratory: no respiratory distress, speaking full sentences Musculoskeletal: no calf tenderness Neurologic: alert, normal gait Psychiatric: mood/affect normal Skin: no rash Medical Decision Making Diagnostic Impression: Primary Impression: Cardiomyopathy Qualified Codes: I42.9 - Cardiomyopathy, unspecified Additional Impression: CHF exacerbation Qualified Codes: I50.9 - Heart failure, unspecified ER Course Patient with CHF exacerbation secondary to cardiomyopathy. Troponin level is negative. EKG is unchanged. He diuresed 2 L in that she is walking around better. Not dyspneic anymore. We'll discharge back to senior living. No evidence of ACS, PE, dissection. Lab Results Impression labs with slight elevation of BNP from baseline EKG Diagnostic Results Rate: normal Rhythm: NSR ST Segments: no acute changes Rhythm Strip Diag. Results Rhythm Strip Time: 23:56 EP Interpretation: yes Rate: 88 Rhythm: NSR, no PVC's, no ectopy Chest X-Ray Diagnostic Results Chest X-Ray Diagnostic Results : Chest X-Ray Ordered: Yes # of Views/Limited/Complete: 1 View Indication: Shortness of Breath EP Interpretation: Yes Interpretation: no consolidation, no effusion, no pneumothorax, no acute cardiopulmonary disease, other - CM Impression: No acute disease Electronically Signed by: Leandro Soliz MD Last Vital Signs Date Time Temp Pulse Resp B/P (MAP) Pulse Ox O2 Delivery O2 Flow Rate FiO2 11/29/17 21:10 97.3 94 18 100/71 97 Room Air 2.0 Status: improved Disposition: XFER SNF Condition: Stable Referrals: RA MEIER (PCP) Additional Instructions: Continue with your medicine. Followup with your Dr. in 7 days. Return if worse. LEANDRO SOLIZ M.D. Nov 29, 2017 23:58
[2017-11-30 01:10] VITALS: BP 102/70
--- NOTE | 2017-11-30 10:55 | Diagnostic Imaging Report ---
Indication: Chest pain Technique: One view of the chest Comparison: 11/22/2017 Findings: Left chest biventricular AICD again demonstrated. The heart remains enlarged. Chronic appearing interstitial opacities are seen at both lung apices. No definite infiltrates, effusions, or congestion. Impression: Cardiomegaly. No definite acute process
--- NOTE | 2017-12-09 16:11 | Cardiology Report ---
APPROVED REPORT EKG Measurement Heart [id number] Normal sinus rhythm Right atrial enlargement Left bundle branch block Abnormal ECG
== END 2017-11-30 00:30 ==
LOC: EDBD 18:31 → EMR 20:15
DX: I42.9 Cardiomyopathy, unspecified (principal); I11.0 Hypertensive heart disease with heart failure; I50.9 Heart failure, unspecified; I48.91 Unspecified atrial fibrillation; I24.9 Acute ischemic heart disease, unspecified; J44.9 Chronic obstructive pulmonary disease, unspecified; Z95.810 Presence of automatic (implantable) cardiac defibrillator; F17.200 Nicotine dependence, unspecified, uncomplicated
CPT/HCPCS: 36415; 71045; 80053; 81003; 83690; 83880; 84484; 85025; 85610; 85730; 93005; 96374; 99284; J1940

== ENCOUNTER 2017-12-04 19:21 | Inpatient (IN) | payer MEDICARE ==
[~2017-12-04] VITALS: Ht 177.8 cm; Wt 55.8 kg
[2017-12-04] MEDS ORDERED: AMIODARONE HCL400 M1 ORAL (19:29)
[2017-12-04] MEDS ORDERED: OSELTAMIVIR PHO75 MG PO (19:29)
[2017-12-04] MEDS ORDERED: COREG3.125 MG ORAL (19:29)
[2017-12-04] MEDS ORDERED: HEPARIN SO5000 UNIT2 SUBQ (19:29)
--- NOTE | 2017-12-04 19:33 | Emergency Room Report ---
History of Present Illness General Chief Complaint: Flu Like Symptoms Source: Patient Present Illness HPI 67-year-old male, history of CHF, cardiomyopathy, AICD, came from [facility] for 2 weeks of generalized weakness, shortness of breath, cough, nausea. States he he has been compliant with his 40 mg of Lasix daily. Complaining of productive cough with clear sputum. Short of breath at rest and on exertion. Also with bilateral lower extremity swelling that is worse than his normal. Allergies: Coded Allergies: No Known Allergies (Unverified , 11/20/17) Patient History Past Medical History: see triage record Past Surgical History: none Pertinent Family History: none Reviewed Nursing Documentation: PMH: Agreed, PSxH: Agreed Nursing Documentation-PMH Hx Cardiac Problems: Yes - A. Fib. sepsis, pneumonia, cardiomyopathy Hx Hypertension: Yes - pulmonary hypertension, hyperlipidemia, heart failure, Hx Pacemaker: Yes Hx COPD: Yes - chronic kidney disease, chronic embolism and thrombosis Hx Cancer: No Hx Gastrointestinal Problems: No Hx Neurological Problems: No Review of Systems All Other Systems: negative except mentioned in HPI Physical Exam Vital Signs Date Time Temp Pulse Resp B/P (MAP) Pulse Ox O2 Delivery O2 Flow Rate FiO2 12/04/17 19:17 97.5 90 18 105/74 97 Room Air Sp02 EP Interpretation: reviewed, normal General Appearance: alert, GCS 15, mild distress Head: normocephalic, atraumatic Eyes: bilateral eye normal inspection, bilateral eye PERRL, bilateral eye EOMI ENT: normal ENT inspection, normal pharynx, normal voice, moist mucus membranes Neck: normal inspection, full range of motion, supple Respiratory: speaking full sentences, other - slight crackles b/l lung base Cardiovascular #1: normal inspection, regular rate, rhythm, no edema, normal capillary refill Cardiovascular #2: 2+ radial (R), 2+ radial (L) Gastrointestinal: normal inspection, non tender, soft, non-distended, no guarding Genitourinary: no CVA tenderness Musculoskeletal: other - 2+ pitting edema b/l Neurologic: normal inspection, alert, oriented x3, responsive, motor strength/ tone normal, sensory intact, normal gait, speech normal Psychiatric: normal inspection, judgement/insight normal, memory normal Skin: normal inspection, normal color, no rash, warm/dry, well hydrated, normal turgor Medical Decision Making Diagnostic Impression: Primary Impression: Flu-like symptoms Additional Impression: CHF exacerbation ER Course 67-year-old male, 2 weeks of shortness of breath DDX: CHF exacerbation, ACS, pneumonia / viral URI , asthma/copd 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 Continues to be tachypneic with shortness of breath. Complaining of generalized weakness. bnp and trop elevated Disposition: Patient will be admitted to telemetry unit Discussed with who is covering for Dr lauren Please note that this Emergency Department Report was dictated using [employer] diver technology software, occasionally this can lead to erroneous entry secondary to interpretation by the dictation equipment. EKG Diagnostic Results EP Interpretation: Yes Rate: normal Rhythm: NSR ST Segments: Right bundle branch block ASA given to patient: no Rhythm Strip EP Interpretation: Yes Rate: 90 Rhythm: NSR, no PVCs, no ectopy Chest X-ray * CXR: Ordered: Yes 1 view Indication: SOB EP interpretation: Yes Interpretation: Cardiomegaly with pulmonary vascular congestion Impression: Cardiomegaly with pulmonary vascular congestion Electronically signed by Lucio Andres MD Laboratory Tests Test 12/04/17 19:44 White Blood Count 5.1 K/UL (4.8-10.8) Red Blood Count 4.77 M/UL (4.70-6.10) Hemoglobin 13.2 G/DL (14.2-18.0) L Hematocrit 45.0 % (42.0-52.0) Mean Corpuscular Volume 94 FL (80-99) Mean Corpuscular Hemoglobin 27.7 PG (27.0-31.0) Mean Corpuscular Hemoglobin Concent 29.4 G/DL (32.0-36.0) L Red Cell Distribution Width 15.6 % (11.6-14.8) H Platelet Count 310 K/UL (150-450) Mean Platelet Volume 5.8 FL (6.5-10.1) L Neutrophils (%) (Auto) 60.7 % (45.0-75.0) Lymphocytes (%) (Auto) 26.5 % (20.0-45.0) Monocytes (%) (Auto) 10.6 % (1.0-10.0) H Eosinophils (%) (Auto) 1.0 % (0.0-3.0) Basophils (%) (Auto) 1.3 % (0.0-2.0) Sodium Level 139 MMOL/L (136-145) Potassium Level 5.2 MMOL/L (3.5-5.1) H Chloride Level 105 MMOL/L (98-107) Carbon Dioxide Level 22 MMOL/L (21-32) Anion Gap 12 mmol/L (5-15) Blood Urea Nitrogen 46 mg/dL (7-18) H Creatinine 1.6 MG/DL (0.55-1.30) H Estimate Glomerular Filtration Rate 43.6 mL/min (>60) Glucose Level 114 MG/DL (74-106) H Calcium Level 8.6 MG/DL (8.5-10.1) Total Bilirubin 0.8 MG/DL (0.2-1.0) Aspartate Amino Transferase (AST) 24 U/L (15-37) Alanine Aminotransferase (ALT) 19 U/L (12-78) Alkaline Phosphatase 90 U/L (46-116) Troponin I 0.177 ng/mL (0.000-0.056) Pro-B-Type Natriuretic Peptide 23502 pg/mL (0-125) H Total Protein 8.1 G/DL (6.4-8.2) Albumin 3.2 G/DL (3.4-5.0) L Globulin 4.9 g/dL Albumin/Globulin Ratio 0.7 (1.0-2.7) L Last Vital Signs Date Time Temp Pulse Resp B/P (MAP) Pulse Ox O2 Delivery O2 Flow Rate FiO2 12/04/17 19:17 97.5 90 18 105/74 97 Room Air Disposition: ADMITTED INPATIENT Condition: Serious Lucio Andres M.D. Dec 04, 2017 19:33
[2017-12-04 19:45] VITALS: BP 105/74
[2017-12-04 20:00] VITALS: BP 104/79
[2017-12-04 20:24] LABS: BASOPHILS % (AUTO) 1.3 % (0.0-2.0); HEMOGLOBIN 13.2 G/DL (14.2-18.0); LYMPHOCYTES % (AUTO) 26.5 % (20.0-45.0); MEAN CORPUSCULAR VOLUME 94 FL (80-99); MONOCYTES % (AUTO) 10.6 % (1.0-10.0); NEUTROPHILS % (AUTO) 60.7 % (45.0-75.0); PLATELET COUNT 310 K/UL (150-450); RED BLOOD COUNT 4.77 M/UL (4.70-6.10); RED CELL DISTRIBUTION WIDTH 15.6 % (11.6-14.8); WHITE BLOOD COUNT 5.1 K/UL (4.8-10.8)
[2017-12-04 20:34] LABS: ANION GAP 12 mmol/L (5-15); BLOOD UREA NITROGEN 46 mg/dL (7-18); CALCIUM 8.6 MG/DL (8.5-10.1); CARBON DIOXIDE 22 MMOL/L (21-32); CHLORIDE 105 MMOL/L (98-107); CREATININE 1.6 MG/DL (0.55-1.30); POTASSIUM 5.2 MMOL/L (3.5-5.1); SODIUM 139 MMOL/L (136-145)
[2017-12-04 20:46] LABS: ALANINE AMINOTRANSFERASE 19 U/L (12-78); ALBUMIN 3.2 G/DL (3.4-5.0); ALBUMIN/GLOBULIN RATIO 0.7 (1.0-2.7); ALKALINE PHOSPHATASE 90 U/L (46-116); ASPARTATE AMINO TRANSFERASE 24 U/L (15-37); BILIRUBIN,TOTAL 0.8 MG/DL (0.2-1.0)
[2017-12-04 22:00] VITALS: BP 106/84
[2017-12-05] VITALS (12 sets, daily range): BP systolic 94–107; BP diastolic 66–79
[2017-12-05 05:28] LABS: ANION GAP 11 mmol/L (5-15); BLOOD UREA NITROGEN 49 mg/dL (7-18); CALCIUM 8.4 MG/DL (8.5-10.1); CARBON DIOXIDE 23 MMOL/L (21-32); CHLORIDE 105 MMOL/L (98-107); CREATININE 1.5 MG/DL (0.55-1.30); SODIUM 139 MMOL/L (136-145)
[2017-12-05 05:29] LABS: BASOPHILS % (AUTO) 1.2 % (0.0-2.0); EOSINOPHILS % (AUTO) 0.5 % (0.0-3.0); HEMATOCRIT 40.8 % (42.0-52.0); HEMOGLOBIN 12.8 G/DL (14.2-18.0); LYMPHOCYTES % (AUTO) 31.2 % (20.0-45.0); MEAN CORPUSCULAR VOLUME 94 FL (80-99); MONOCYTES % (AUTO) 10.4 % (1.0-10.0); NEUTROPHILS % (AUTO) 56.6 % (45.0-75.0); PLATELET COUNT 279 K/UL (150-450); RED BLOOD COUNT 4.35 M/UL (4.70-6.10); RED CELL DISTRIBUTION WIDTH 15.9 % (11.6-14.8); WHITE BLOOD COUNT 4.6 K/UL (4.8-10.8)
[2017-12-05] MEDS ORDERED: Ipratropium 0.02% Inh Soln 2.5ml UD HHN ONE (07:45)
[2017-12-05] MEDS ORDERED: Bisacodyl EC 5mg tab ORAL PRN (08:00)
[2017-12-05] MEDS ORDERED: Docusate 100mg cap ORAL ONE (08:00)
[2017-12-05] MEDS ORDERED: Furosemide 40mg tab ORAL ONE (09:00)
[2017-12-05] MEDS ORDERED: Heparin 5000 units/ml inj SUBQ ONE (09:00)
[2017-12-05] MEDS ORDERED: Fluconazole 100mg tab ORAL ONE (09:00)
[2017-12-05] MEDS ORDERED: Losartan 25mg tab ORAL ONE (09:00)
[2017-12-05] MEDS ORDERED: Imdur 30mg tab ORAL SCH (09:00)
[2017-12-05] MEDS ORDERED: Metoprolol 25mg tab ORAL ONE (09:00)
[2017-12-05] MEDS ORDERED: Spironolactone 50mg tab ORAL ONE (09:00)
[2017-12-05] MEDS ORDERED: Oseltamivir 75mg cap ORAL SCH ×2 (09:00)
[2017-12-05] MEDS ORDERED: Furosemide 40mg tab ORAL SCH (09:30)
[2017-12-05] MEDS ORDERED: Losartan 25mg tab ORAL SCH (09:30)
[2017-12-05] MEDS ORDERED: Metoprolol 25mg tab ORAL SCH (09:30)
[2017-12-05] MEDS ORDERED: Amiodarone 200mg tab ORAL SCH (09:30)
[2017-12-05] MEDS: Spironolactone 50mg tab ORAL SCH (10:18)
[2017-12-05] MEDS: Heparin 5000 units/ml inj SUBQ SCH ×2 (10:19→21:04)
[2017-12-05] MEDS: Fluconazole 100mg tab ORAL SCH (10:33)
[2017-12-05] MEDS: Ipratropium 0.02% Inh Soln 2.5ml UD HHN SCH ×3 (12:00→19:30)
--- NOTE | 2017-12-05 12:50 | Diagnostic Imaging Report ---
Indication: Dyspnea Comparison: 11/29/2017 A single view chest radiograph was obtained. Findings: Lungs are clear. Cardiac silhouette is markedly enlarged but stable. Pacemaker again noted. IMPRESSION: No acute disease.
--- NOTE | 2017-12-05 17:32 | Cardiac Electrophysiology PN ---
Subjective Subjective [id number] Objective Last 24 Hour Vital Signs Date Time Temp Pulse Resp B/P (MAP) Pulse Ox O2 Delivery O2 Flow Rate FiO2 12/05/17 16:00 97.0 94 20 100/67 98 Room Air 12/05/17 14:00 95 24 101/71 98 Room Air 12/05/17 13:31 101 26 100 Room Air 21 12/05/17 13:24 100 24 99 Room Air 21 12/05/17 13:24 21 12/05/17 12:00 97.3 100 22 96/72 100 Room Air 12/05/17 10:20 97 100/77 12/05/17 10:20 100/77 12/05/17 10:20 100/77 12/05/17 10:20 98 100/77 12/05/17 10:15 97 24 100/77 99 Nasal Cannula 2.0 12/05/17 08:00 97.0 97 28 103/73 98 Room Air 12/05/17 06:30 91 26 103/71 98 Room Air 12/05/17 04:00 93 30 101/71 97 Room Air 12/05/17 02:00 99 28 107/79 98 Room Air 12/05/17 00:00 94 27 101/67 97 Room Air 12/04/17 22:00 98 28 106/84 97 Room Air 12/04/17 20:00 71 30 104/79 96 Room Air 12/04/17 19:45 97.5 18 105/74 97 Room Air 12/04/17 19:45 90 18 Room Air 12/04/17 19:17 97.5 90 18 105/74 97 Room Air Intake and Output 12/04/17 12/05/17 19:00 07:00 Intake Total 0 ml Balance 0 ml Intake Oral 0 ml Laboratory Tests Test 12/04/17 19:44 12/05/17 04:30 White Blood Count 5.1 K/UL (4.8-10.8) 4.6 K/UL (4.8-10.8) L Red Blood Count 4.77 M/UL (4.70-6.10) 4.35 M/UL (4.70-6.10) L Hemoglobin 13.2 G/DL (14.2-18.0) L 12.8 G/DL (14.2-18.0) L Hematocrit 45.0 % (42.0-52.0) 40.8 % (42.0-52.0) L Mean Corpuscular Volume 94 FL (80-99) 94 FL (80-99) Mean Corpuscular Hemoglobin 27.7 PG (27.0-31.0) 29.4 PG (27.0-31.0) Mean Corpuscular Hemoglobin Concent 29.4 G/DL (32.0-36.0) L 31.3 G/DL (32.0-36.0) L Red Cell Distribution Width 15.6 % (11.6-14.8) H 15.9 % (11.6-14.8) H Platelet Count 310 K/UL (150-450) 279 K/UL (150-450) Mean Platelet Volume 5.8 FL (6.5-10.1) L 5.9 FL (6.5-10.1) L Neutrophils (%) (Auto) 60.7 % (45.0-75.0) 56.6 % (45.0-75.0) Lymphocytes (%) (Auto) 26.5 % (20.0-45.0) 31.2 % (20.0-45.0) Monocytes (%) (Auto) 10.6 % (1.0-10.0) H 10.4 % (1.0-10.0) H Eosinophils (%) (Auto) 1.0 % (0.0-3.0) 0.5 % (0.0-3.0) Basophils (%) (Auto) 1.3 % (0.0-2.0) 1.2 % (0.0-2.0) Sodium Level 139 MMOL/L (136-145) 139 MMOL/L (136-145) Potassium Level 5.2 MMOL/L (3.5-5.1) H 5.0 MMOL/L (3.5-5.1) Chloride Level 105 MMOL/L (98-107) 105 MMOL/L (98-107) Carbon Dioxide Level 22 MMOL/L (21-32) 23 MMOL/L (21-32) Anion Gap 12 mmol/L (5-15) 11 mmol/L (5-15) Blood Urea Nitrogen 46 mg/dL (7-18) H 49 mg/dL (7-18) H Creatinine 1.6 MG/DL (0.55-1.30) H 1.5 MG/DL (0.55-1.30) H Estimat Glomerular Filtration Rate 43.6 mL/min (>60) 47.0 mL/min (>60) Glucose Level 114 MG/DL (74-106) H 93 MG/DL (74-106) Calcium Level 8.6 MG/DL (8.5-10.1) 8.4 MG/DL (8.5-10.1) L Total Bilirubin 0.8 MG/DL (0.2-1.0) Aspartate Amino Transf (AST/SGOT) 24 U/L (15-37) Alanine Aminotransferase (ALT/SGPT) 19 U/L (12-78) Alkaline Phosphatase 90 U/L (46-116) Troponin I 0.177 ng/mL (0.000-0.056) 0.172 ng/mL (0.000-0.056) Pro-B-Type Natriuretic Peptide 03714 pg/mL (0-125) H Total Protein 8.1 G/DL (6.4-8.2) Albumin 3.2 G/DL (3.4-5.0) L Globulin 4.9 g/dL Albumin/Globulin Ratio 0.7 (1.0-2.7) L Microbiology Date/Time Source Procedure Growth Status 12/05/17 08:00 Nasal Nares Influenza Types A,B Antigen (PAOLO) - Final Complete HECTOR MCCALL Dec 05, 2017 17:32
--- NOTE | 2017-12-05 17:55 | Cardiology Report ---
APPROVED REPORT EKG Measurement Heart [id number] Normal sinus rhythm ventricular pacing
[2017-12-05] MEDS: HydrALAZINE 25mg tab ORAL SCH (18:00)
--- NOTE | 2017-12-05 18:08 | History and Physical ---
History of Present Illness General Date patient seen: Dec 05, 2017 Time patient seen: 12:00 Reason for Hospitalization: cough, SOB Present Illness HPI 67y/o male with PMH of Afib, HTN, HLD, BPH, COPD, and systolic CHF (EF 12% done on 10/2017) presented from SNF for increasing shortness of breath. Pt recently admitted to [facility] for CHF exacerbation and was diuresed and sent back to SNF on . Pt notes worsening SOB, BLE swelling and cough x 1 week. Has been on lasix 40mg daily. Cough productive of clear sputum. Denies f/c, n/v, d/c, chest pain. Also c/o upper abd pain, intermittent, crampy sensation. Also c/o generalized weakness. 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 Patient was treated with tamiflu and fluconazole. Final cocci serology from [facility] came back positive. Pt has been on diflucan. During recent admission at [facility] diflucan dose was increased to 400mg daily after amiodarone was discontinued. \\ Allergies: Coded Allergies: No Known Allergies (Unverified , 11/20/17) Medication History Scheduled Amiodarone Hcl* (Amiodarone Hcl*), 200 MG ORAL EVERY 12 HOURS, (Reported) Aspirin* (Aspir 81*), 81 MG ORAL DAILY, (Reported) Bisacodyl (Dulcolax), 5 MG PO DAILY, (Reported) Carvedilol (Coreg), 3.125 MG ORAL EVERY 12 HOURS, (Reported) Docusate Sodium* (Colace*), 100 MG ORAL DAILY, (Reported) Fluconazole* (Diflucan*), 400 MG ORAL DAILY Furosemide* (Lasix*), 40 MG ORAL TWICE A DAY Heparin Sod (Porcine) (Heparin Sodium*), 5,000 UNITS SUBQ EVERY 12 HOURS, ( Reported) Isosorbide Dinitrate* (Isordil*), 30 MG ORAL DAILY, (Reported) Losartan Potassium* (Losartan Potassium*), 25 MG ORAL DAILY, (Reported) Metoprolol Tartrate* (Metoprolol Tartrate*), 25 MG ORAL DAILY, (Reported) Oseltamivir Phosphate (Oseltamivir Phosphate), 75 MG PO BID, (Reported) Simvastatin (Zocor), 10 MG ORAL BEDTIME, (Reported) Spironolactone* (Aldactone*), 25 MG ORAL DAILY, (Reported) Tamsulosin Hcl (Tamsulosin Hcl*), 0.4 MG ORAL BEDTIME, (Reported) Scheduled PRN Acetaminophen (Acetaminophen), 650 MG ORAL Q4HR PRN for Prn Headache/Temp > 101, (Reported) Ipratropium Teachey 0.5MG/2.5ML (Ipratropium Teachey 0.5MG/2.5ML), 0.5 MG HHN Q6H PRN for Shortness of Breath, (Reported) Patient History History Provided By: Patient, Medical Record, PMD Healthcare decision maker Resuscitation status Advanced Directive on File No Past Medical/Surgical History Past Medical/Surgical History: (1) COPD (chronic obstructive pulmonary disease) (2) Chronic systolic (congestive) heart failure (3) Cardiomyopathy (4) HTN (hypertension) (5) HLD (hyperlipidemia) (6) BPH (benign prostatic hyperplasia) (7) Atrial fibrillation Family History Family History: Patient reports no known family medical history. Social History Social History: (1) lives at [facility] Review of Systems Constitutional: Reports: weakness Eye: Reports: no symptoms ENT: Reports: no symptoms Respiratory: Reports: cough, shortness of breath, CAGLE, sputum Cardiovascular: Reports: no symptoms, edema Gastrointestinal: Reports: abdominal pain Genitourinary: Reports: no symptoms Musculoskeletal: Reports: no symptoms Skin: Reports: no symptoms Psychiatric: Reports: no symptoms Neurological: Reports: no symptoms Endocrine: Reports: no symptoms Hematologic/Lymphatic: Reports: no symptoms Physical Exam Physical Exam Narrative General: alert, cooperative, no distress, appears stated age Head: normocephalic, without obvious abnormality, atraumatic Eyes: conjunctivae/corneas clear. PERRL, EOM's intact Throat: lips, mucosa, and tongue normal. MMM Neck: supple, symmetrical, trachea midline, and +JVD Lungs: +crackles b/l Heart: regular rate and rhythm, S1, S2 normal, no murmur, click, rub or gallop Abdomen: soft, non-tender, non-distended, bowel sounds normal; no masses or organomegaly Extremities: extremities normal, atraumatic, no cyanosis, 2+ pitting edema to BLE to above the knees Pulses: 2+ and symmetric Skin: skin color, texture, turgor normal; no rashes or lesions Neurologic: grossly normal, no focal deficits Last 24 Hour Vital Signs Date Time Temp Pulse Resp B/P (MAP) Pulse Ox O2 Delivery O2 Flow Rate FiO2 12/05/17 17:09 97.0 94 20 100/67 98 Room Air 2.0 21 12/05/17 16:00 97.0 94 20 100/67 98 Room Air 12/05/17 14:00 95 24 101/71 98 Room Air 12/05/17 13:31 101 26 100 Room Air 21 12/05/17 13:24 100 24 99 Room Air 21 12/05/17 13:24 21 12/05/17 12:00 97.3 100 22 96/72 100 Room Air 12/05/17 10:20 97 100/77 12/05/17 10:20 100/77 12/05/17 10:20 100/77 12/05/17 10:20 98 100/77 12/05/17 10:15 97 24 100/77 99 Nasal Cannula 2.0 12/05/17 08:00 97.0 97 28 103/73 98 Room Air 12/05/17 06:30 91 26 103/71 98 Room Air 12/05/17 04:00 93 30 101/71 97 Room Air 12/05/17 02:00 99 28 107/79 98 Room Air 12/05/17 00:00 94 27 101/67 97 Room Air 12/04/17 22:00 98 28 106/84 97 Room Air 12/04/17 20:00 71 30 104/79 96 Room Air 12/04/17 19:45 97.5 18 105/74 97 Room Air 12/04/17 19:45 90 18 Room Air 12/04/17 19:17 97.5 90 18 105/74 97 Room Air Intake and Output 12/04/17 12/05/17 19:00 07:00 Intake Total 0 ml Balance 0 ml Intake Oral 0 ml Laboratory Tests Test 12/04/17 19:44 12/05/17 04:30 White Blood Count 5.1 K/UL (4.8-10.8) 4.6 K/UL (4.8-10.8) L Red Blood Count 4.77 M/UL (4.70-6.10) 4.35 M/UL (4.70-6.10) L Hemoglobin 13.2 G/DL (14.2-18.0) L 12.8 G/DL (14.2-18.0) L Hematocrit 45.0 % (42.0-52.0) 40.8 % (42.0-52.0) L Mean Corpuscular Volume 94 FL (80-99) 94 FL (80-99) Mean Corpuscular Hemoglobin 27.7 PG (27.0-31.0) 29.4 PG (27.0-31.0) Mean Corpuscular Hemoglobin Concent 29.4 G/DL (32.0-36.0) L 31.3 G/DL (32.0-36.0) L Red Cell Distribution Width 15.6 % (11.6-14.8) H 15.9 % (11.6-14.8) H Platelet Count 310 K/UL (150-450) 279 K/UL (150-450) Mean Platelet Volume 5.8 FL (6.5-10.1) L 5.9 FL (6.5-10.1) L Neutrophils (%) (Auto) 60.7 % (45.0-75.0) 56.6 % (45.0-75.0) Lymphocytes (%) (Auto) 26.5 % (20.0-45.0) 31.2 % (20.0-45.0) Monocytes (%) (Auto) 10.6 % (1.0-10.0) H 10.4 % (1.0-10.0) H Eosinophils (%) (Auto) 1.0 % (0.0-3.0) 0.5 % (0.0-3.0) Basophils (%) (Auto) 1.3 % (0.0-2.0) 1.2 % (0.0-2.0) Sodium Level 139 MMOL/L (136-145) 139 MMOL/L (136-145) Potassium Level 5.2 MMOL/L (3.5-5.1) H 5.0 MMOL/L (3.5-5.1) Chloride Level 105 MMOL/L (98-107) 105 MMOL/L (98-107) Carbon Dioxide Level 22 MMOL/L (21-32) 23 MMOL/L (21-32) Anion Gap 12 mmol/L (5-15) 11 mmol/L (5-15) Blood Urea Nitrogen 46 mg/dL (7-18) H 49 mg/dL (7-18) H Creatinine 1.6 MG/DL (0.55-1.30) H 1.5 MG/DL (0.55-1.30) H Estimat Glomerular Filtration Rate 43.6 mL/min (>60) 47.0 mL/min (>60) Glucose Level 114 MG/DL (74-106) H 93 MG/DL (74-106) Calcium Level 8.6 MG/DL (8.5-10.1) 8.4 MG/DL (8.5-10.1) L Total Bilirubin 0.8 MG/DL (0.2-1.0) Aspartate Amino Transf (AST/SGOT) 24 U/L (15-37) Alanine Aminotransferase (ALT/SGPT) 19 U/L (12-78) Alkaline Phosphatase 90 U/L (46-116) Troponin I 0.177 ng/mL (0.000-0.056) 0.172 ng/mL (0.000-0.056) Pro-B-Type Natriuretic Peptide 08661 pg/mL (0-125) H Total Protein 8.1 G/DL (6.4-8.2) Albumin 3.2 G/DL (3.4-5.0) L Globulin 4.9 g/dL Albumin/Globulin Ratio 0.7 (1.0-2.7) L Microbiology Date/Time Source Procedure Growth Status 12/05/17 08:00 Nasal Nares Influenza Types A,B Antigen (PAOLO) - Final Complete Height (Feet): 5 Height (Inches): 10.00 Weight (Pounds): 130 Medications Current Medications Medications (Trade) Dose Ordered Sig/Sanjay Route PRN Reason Start Time Stop Time Status Last Admin Dose Admin Atorvastatin Calcium (Lipitor) 10 mg BEDTIME ORAL 12/05/17 21:00 01/04/18 20:59 Carvedilol (Coreg) 3.125 mg EVERY 12 HOURS ORAL 12/05/17 09:30 01/04/18 09:29 Fluconazole (Diflucan) 400 mg DAILY ORAL 12/05/17 11:00 12/12/17 10:59 12/05/17 10:33 Furosemide (Lasix) 40 mg BID IV 12/05/17 11:00 01/04/18 10:59 12/05/17 10:33 Heparin Sodium (Porcine) (Heparin 5000 units/ml) 5,000 units EVERY 12 HOURS SUBQ 12/05/17 09:30 01/04/18 09:29 12/05/17 10:19 Hydralazine HCl (Apresoline) 25 mg Q12HR ORAL 12/05/17 18:00 01/04/18 17:59 Ipratropium Teachey (Atrovent) 500 mcg Q6HRT HHN 12/05/17 12:00 12/10/17 11:59 12/05/17 13:28 Isosorbide Dinitrate (Isordil) 30 mg DAILY ORAL 12/05/17 09:30 01/04/18 09:29 Spironolactone (Aldactone) 25 mg DAILY ORAL 12/05/17 10:30 01/04/18 10:29 12/05/17 10:18 Tamsulosin HCl (Flomax) 0.4 mg BEDTIME ORAL 12/05/17 21:00 01/04/18 20:59 Assessment/Plan Problem List: (1) Acute on chronic systolic (congestive) heart failure ICD Codes: I50.23 - Acute on chronic systolic (congestive) heart failure SNOMED: 16007918, 398636403 (2) Cardiomyopathy Assessment & Plan: EF <20% ICD Codes: I42.9 - Cardiomyopathy, unspecified SNOMED: 30044078 (3) Atrial fibrillation ICD Codes: I48.91 - Unspecified atrial fibrillation SNOMED: 31644313 (4) Pulmonary coccidioidomycosis ICD Codes: B38.2 - Pulmonary coccidioidomycosis, unspecified SNOMED: 764108107 (5) HTN (hypertension) ICD Codes: I10 - Essential (primary) hypertension SNOMED: 13356148 (6) HLD (hyperlipidemia) ICD Codes: E78.5 - Hyperlipidemia, unspecified SNOMED: 27611999 (7) BPH (benign prostatic hyperplasia) ICD Codes: N40.0 - Benign prostatic hyperplasia without lower urinary tract symptoms SNOMED: 672614960 (8) RAKESH (acute kidney injury) ICD Codes: N17.9 - Acute kidney failure, unspecified SNOMED: 41334375 (9) Cardiorenal syndrome ICD Codes: I13.10 - Hypertensive heart and chronic kidney disease without heart failure, with stage 1 through stage 4 chronic kidney disease, or unspecified chronic kidney disease SNOMED: 686733766 (10) Elevated troponin Assessment & Plan: Possibly in setting of renal insufficiency vs NSTEMi type 2 in setting of CHF ICD Codes: R74.8 - Abnormal levels of other serum enzymes SNOMED: 646325314, 066567762 (11) COPD (chronic obstructive pulmonary disease) ICD Codes: J44.9 - Chronic obstructive pulmonary disease, unspecified SNOMED: 70677238 (12) Abdominal pain ICD Codes: R10.9 - Unspecified abdominal pain SNOMED: 81915332 Status: stable Assessment/Plan Admit to tele Cardiology consulted Trend trop/EKG Lasix 40mg IV BID Duonebs PRN Strict I/O's, daily weights Monitor lytes and replete Monitor Cr closely Cont GDMT w/ coreg, hydralazine, isordil Hold losartan and aldactone for now given RAKESH Cont diflucan 400mg daily Cont other SNF meds Check U/S abd given abd pain Pain control, bowel regimen Supportive care DVT Prophylaxis: SCD, HSQ Code Status: Full Hospital Classification Declaration: Based on this initial evaluation, and depending on the patient's clinical course, I anticipate that this patient will require hospitalization for 2-3 days for CHF exacerbation and close respiratory/ hemodynamic monitoring. Disposition: Once the patient is stable to leave the hospital, I anticipate the patient will likely be discharged to the following environment: back to SNF I spent 70 minutes on this patient's case, and 38 minutes were dedicated to counseling and/or care coordination. Discussed with patient/family, nursing staff, MEGHANN/HEBER, cardiology regarding clinical status, treatment course, and disposition planning. D/w cardiology re diuresis Time of note may not reflect time of encounter. Kiara Kulkarni M.D. Dec 05, 2017 18:08
[2017-12-05] MEDS: Tamsulosin 0.4mg cap ORAL SCH (20:54)
[2017-12-05] MEDS ORDERED: Tamsulosin 0.4mg cap ORAL SCH (21:00)
[2017-12-06] MEDS: Ipratropium 0.02% Inh Soln 2.5ml UD HHN SCH ×5 (01:00→23:14)
[2017-12-06 04:21] VITALS: BP 99/71
[2017-12-06 07:51] LABS: BASOPHILS % (AUTO) 1.2 % (0.0-2.0); EOSINOPHILS % (AUTO) 0.8 % (0.0-3.0); HEMATOCRIT 37.5 % (42.0-52.0); HEMOGLOBIN 11.6 G/DL (14.2-18.0); LYMPHOCYTES % (AUTO) 31.5 % (20.0-45.0); MEAN CORPUSCULAR VOLUME 95 FL (80-99); NEUTROPHILS % (AUTO) 49.5 % (45.0-75.0); PLATELET COUNT 270 K/UL (150-450); RED BLOOD COUNT 3.94 M/UL (4.70-6.10); RED CELL DISTRIBUTION WIDTH 16.6 % (11.6-14.8); WHITE BLOOD COUNT 6.1 K/UL (4.8-10.8)
[2017-12-06 08:13] LABS: ANION GAP 12 mmol/L (5-15); BLOOD UREA NITROGEN 52 mg/dL (7-18); CALCIUM 9.2 MG/DL (8.5-10.1); CARBON DIOXIDE 23 MMOL/L (21-32); CHLORIDE 103 MMOL/L (98-107); CREATININE 1.6 MG/DL (0.55-1.30); POTASSIUM 4.6 MMOL/L (3.5-5.1); SODIUM 138 MMOL/L (136-145)
[2017-12-06] MEDS: Spironolactone 50mg tab ORAL SCH (09:00)
[2017-12-06] MEDS: Heparin 5000 units/ml inj SUBQ SCH ×2 (09:00→21:00)
[2017-12-06] MEDS: HydrALAZINE 25mg tab ORAL SCH ×2 (09:00→21:00)
[2017-12-06] MEDS: Fluconazole 100mg tab ORAL SCH (09:12)
--- NOTE | 2017-12-06 09:43 | Consultation ---
DATE OF CONSULTATION: 12/05/2017 CARDIOLOGY CONSULTATION CONSULTING PHYSICIAN: Jaya Bowers M.D. REFERRING PHYSICIAN: Sohbha Tovar M.D. REASON FOR CONSULTATION: Exacerbation of congestive heart failure. HISTORY OF PRESENT ILLNESS: The patient is a very pleasant 67-year-old gentleman who was just recently discharged on 11/24/2017. The patient has a history of hypertension and paroxysmal atrial fibrillation as well as severe cardiomyopathy with ejection fraction of only 15%. The patient also has [employer]onic atrio-biventricular defibrillator implantation that was interrogated and showed normal function. The patient also has recently been diagnosed with coccidioidomycosis, under management of Dr. Varner and was started on fluconazole daily. The patient's amiodarone was discontinued in view of interaction with fluconazole for prolonged QT. The patient presented to the emergency room again for increasing lower extremity edema and abdominal pain and shortness of breath, and a Cardiology consultation was obtained for further evaluation and management. PAST MEDICAL HISTORY: 1. Hypertension. 2. Paroxysmal atrial fibrillation. 3. Status post Medtronic biventricular defibrillator implantation. 4. Severe cardiomyopathy, ejection fraction 15%. 5. Coccidioidomycosis. SOCIAL HISTORY: Does not smoke or drink alcohol. FAMILY HISTORY: Noncontributory. REVIEW OF SYSTEMS: Review of systems was performed and was negative other than what was mentioned in the history of present illness. PHYSICAL EXAMINATION: VITAL SIGNS: Blood pressure is 100/67, pulse is 94, respirations 18, and temperature 97 degrees. HEAD AND NECK: Positive JVD. LUNGS: Decreased breath sounds. CARDIOVASCULAR: Regular S1 and S2 with no gallop. ABDOMEN: Soft. EXTREMITIES: Bilateral 2+ pitting edema. Defibrillator in the left subclavian area is intact. LABORATORY AND DIAGNOSTIC DATA: White count of 4.6, hemoglobin 12.8, and hematocrit of 40. Sodium 139, potassium 5.0, BUN of 49, and creatinine 1.5. Troponin is 0.177 and 0.172. EKG showed atrially sensed and ventricularly paced rhythm. ASSESSMENT AND PLAN: 1. Troponin leak, likely due to the patient's renal failure with creatinine of 1.6 as well as cardiomyopathy. The patient does not have any chest pain, but his BNP is more than 18,000. Continue Lasix 40 mg IV b.i.d. as well as Aldactone 25 mg daily and Coreg 3.125 mg b.i.d. I would discontinue metoprolol and Cozaar in view of his renal failure and continue on Isordil and add hydralazine to his medical regimen. It is of note the patient was hyperkalemic. 2. Status post Medtronic atrio-biventricular defibrillator implantation with normal function. 3. Paroxysmal atrial fibrillation, sinus rhythm, off amiodarone as the patient is on Diflucan. 4. Hyperlipidemia, on Lipitor. 5. Chronic obstructive pulmonary disease, on Atrovent. Thank you very much Dr. Tovar for allowing me to participate in the care of this gentleman. Please do not hesitate to contact me for any questions regarding my evaluation. Jaya Bowers M.D. DR: WHITNEY JOB#: [id number] CC:
--- NOTE | 2017-12-06 15:01 | General Progress Note ---
Assessment/Plan Problem List: (1) Acute on chronic systolic (congestive) heart failure ICD Codes: I50.23 - Acute on chronic systolic (congestive) heart failure SNOMED: 20460725, 513046056 (2) Cardiomyopathy Assessment & Plan: EF <20% ICD Codes: I42.9 - Cardiomyopathy, unspecified SNOMED: 88518955 (3) Atrial fibrillation ICD Codes: I48.91 - Unspecified atrial fibrillation SNOMED: 32279431 (4) Pulmonary coccidioidomycosis ICD Codes: B38.2 - Pulmonary coccidioidomycosis, unspecified SNOMED: 686943933 (5) HTN (hypertension) ICD Codes: I10 - Essential (primary) hypertension SNOMED: 19789915 (6) HLD (hyperlipidemia) ICD Codes: E78.5 - Hyperlipidemia, unspecified SNOMED: 68664705 (7) BPH (benign prostatic hyperplasia) ICD Codes: N40.0 - Benign prostatic hyperplasia without lower urinary tract symptoms SNOMED: 672457361 (8) RAKESH (acute kidney injury) ICD Codes: N17.9 - Acute kidney failure, unspecified SNOMED: 68873045 (9) Cardiorenal syndrome ICD Codes: I13.10 - Hypertensive heart and chronic kidney disease without heart failure, with stage 1 through stage 4 chronic kidney disease, or unspecified chronic kidney disease SNOMED: 740675556 (10) Elevated troponin Assessment & Plan: Possibly in setting of renal insufficiency vs NSTEMi type 2 in setting of CHF ICD Codes: R74.8 - Abnormal levels of other serum enzymes SNOMED: 419073285, 838984956 (11) COPD (chronic obstructive pulmonary disease) ICD Codes: J44.9 - Chronic obstructive pulmonary disease, unspecified SNOMED: 97774350 (12) Abdominal pain ICD Codes: R10.9 - Unspecified abdominal pain SNOMED: 28652633 Subjective Date patient seen: Dec 06, 2017 Time patient seen: 15:01 ROS Limited/Unobtainable: No Allergies: Coded Allergies: No Known Allergies (Unverified , 11/20/17) Objective Last 24 Hour Vital Signs Date Time Temp Pulse Resp B/P (MAP) Pulse Ox O2 Delivery O2 Flow Rate FiO2 12/06/17 14:15 81 17 100 Room Air 12/06/17 13:53 81 17 Room Air 12/06/17 13:53 81 17 100 Room Air 12/06/17 04:21 96.9 91 19 99/71 94 Nasal Cannula 12/06/17 04:00 95 12/06/17 02:00 Room Air 21 12/06/17 02:00 Room Air 21 12/06/17 00:00 88 12/05/17 22:30 97.0 88 20 92/69 100 Room Air 2.0 21 12/05/17 20:50 97 92/69 12/05/17 20:00 97.0 88 20 94/68 100 Room Air 2.0 21 12/05/17 19:32 Room Air 12/05/17 19:26 94 20 100 Room Air 21 12/05/17 18:00 92 24 98/66 95 Room Air 12/05/17 18:00 98/66 12/05/17 17:09 97.0 94 20 100/67 98 Room Air 2.0 21 12/05/17 16:00 97.0 94 20 100/ 98 Room Air Intake and Output 12/05/17 12/06/17 18:59 06:59 Intake Total 240 ml Output Total 1025 ml 500 ml Balance -785 ml -500 ml Intake Oral 240 ml Output Urine Total 1025 ml 500 ml # Voids 2 # Bowel Movements 3 3 Laboratory Tests 12/06/17 06:30: White Blood Count 6.1, Red Blood Count 3.94L, Hemoglobin 11.6L, Hematocrit 37.5L , Mean Corpuscular Volume 95, Mean Corpuscular Hemoglobin 29.5, Mean Corpuscular Hemoglobin Concent 31.0L, Red Cell Distribution Width 16.6H, Platelet Count 270, Mean Platelet Volume 6.1L, Neutrophils (%) (Auto) 49.5, Lymphocytes (%) (Auto) 31.5, Monocytes (%) (Auto) 17.0H, Eosinophils (%) (Auto) 0.8, Basophils (%) (Auto) 1.2, Sodium Level 138, Potassium Level 4.6, Chloride Level 103, Carbon Dioxide Level 23, Anion Gap 12, Blood Urea Nitrogen 52H, Creatinine 1.6H, Estimat Glomerular Filtration Rate 43.6, Glucose Level 100, Calcium Level 9.2, Magnesium Level 2.3 Height (Feet): 5 Height (Inches): 10.00 Weight (Pounds): 130 Kiara Kulkarni M.D. Dec 06, 2017 15:01
--- NOTE | 2017-12-06 15:23 | Cardiac Electrophysiology PN ---
Assessment/Plan Assessment/Plan 1. Troponin leak, likely due to the patient's renal failure with creatinine of 1.6 as well as cardiomyopathy. The patient does not have any chest pain, but his BNP is more than 18,000. Continue Lasix 40 mg IV b.i.d., Aldactone 25 mg daily and Coreg 3.125 mg b.i.d. , Isordil and , hydralazine 2. Status post Medtronic atrio-biventricular defibrillator implantation with normal function. 3. Paroxysmal atrial fibrillation, sinus rhythm, off amiodarone as the patient is on Diflucan. 4. Hyperlipidemia, on Lipitor. 5. Chronic obstructive pulmonary disease, on Atrovent. LENA RN Subjective Subjective No events overnight. Refused his meds today. Diuresing very well. Objective Last 24 Hour Vital Signs Date Time Temp Pulse Resp B/P (MAP) Pulse Ox O2 Delivery O2 Flow Rate FiO2 12/06/17 14:15 81 17 100 Room Air 12/06/17 13:53 81 17 Room Air 12/06/17 13:53 81 17 100 Room Air 12/06/17 04:21 96.9 91 19 99/71 94 Nasal Cannula 12/06/17 04:00 95 12/06/17 02:00 Room Air 21 12/06/17 02:00 Room Air 21 12/06/17 00:00 88 12/05/17 22:30 97.0 88 20 92/69 100 Room Air 2.0 12/05/17 20:50 97 92/69 12/05/17 20:00 97.0 88 20 94/68 100 Room Air 2.0 12/05/17 19:32 Room Air 12/05/17 19:26 94 20 100 Room Air 21 12/05/17 18:00 92 24 98/66 95 Room Air 12/05/17 18:00 98/66 12/05/17 17:09 97.0 94 20 100/67 98 Room Air 2.0 12/05/17 16:00 97.0 94 20 100/67 98 Room Air Intake and Output 12/05/17 12/06/17 19:00 07:00 Intake Total 240 ml Output Total 1025 ml 500 ml Balance -785 ml -500 ml Intake Oral 240 ml Output Urine Total 1025 ml 500 ml # Voids 2 # Bowel Movements 3 3 Laboratory Tests Test 12/06/17 06:30 White Blood Count 6.1 K/UL (4.8-10.8) Red Blood Count 3.94 M/UL (4.70-6.10) L Hemoglobin 11.6 G/DL (14.2-18.0) L Hematocrit 37.5 % (42.0-52.0) L Mean Corpuscular Volume 95 FL (80-99) Mean Corpuscular Hemoglobin 29.5 PG (27.0-31.0) Mean Corpuscular Hemoglobin Concent 31.0 G/DL (32.0-36.0) L Red Cell Distribution Width 16.6 % (11.6-14.8) H Platelet Count 270 K/UL (150-450) Mean Platelet Volume 6.1 FL (6.5-10.1) L Neutrophils (%) (Auto) 49.5 % (45.0-75.0) Lymphocytes (%) (Auto) 31.5 % (20.0-45.0) Monocytes (%) (Auto) 17.0 % (1.0-10.0) H Eosinophils (%) (Auto) 0.8 % (0.0-3.0) Basophils (%) (Auto) 1.2 % (0.0-2.0) Sodium Level 138 MMOL/L (136-145) Potassium Level 4.6 MMOL/L (3.5-5.1) Chloride Level 103 MMOL/L (98-107) Carbon Dioxide Level 23 MMOL/L (21-32) Anion Gap 12 mmol/L (5-15) Blood Urea Nitrogen 52 mg/dL (7-18) H Creatinine 1.6 MG/DL (0.55-1.30) H Estimat Glomerular Filtration Rate 43.6 mL/min (>60) Glucose Level 100 MG/DL (74-106) Calcium Level 9.2 MG/DL (8.5-10.1) Magnesium Level 2.3 MG/DL (1.8-2.4) Microbiology Date/Time Source Procedure Growth Status 12/05/17 08:00 Nasal Nares Influenza Types A,B Antigen (PAOLO) - Final Complete Objective HEAD AND NECK: Positive JVD. LUNGS: Decreased breath sounds. CARDIOVASCULAR: Regular S1 and S2 with no gallop.ICD left subclavian intact. ABDOMEN: Soft. EXTREMITIES: Bilateral 2+ pitting edema. HECTOR MCCALL Dec 06, 2017 15:23
--- NOTE | 2017-12-06 15:57 | General Progress Note ---
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.2 - Pulmonary coccidioidomycosis, unspecified SNOMED: 990913231 (5) HTN (hypertension) ICD Codes: I10 - Essential (primary) hypertension SNOMED: 57741712 (6) HLD (hyperlipidemia) ICD Codes: E78.5 - Hyperlipidemia, unspecified SNOMED: 34256188 (7) BPH (benign prostatic hyperplasia) ICD Codes: N40.0 - Benign prostatic hyperplasia without lower urinary tract symptoms SNOMED: 893149218 (8) RAKESH (acute kidney injury) ICD Codes: N17.9 - Acute kidney failure, unspecified SNOMED: 53757227 (9) Cardiorenal syndrome ICD Codes: I13.10 - Hypertensive heart and chronic kidney disease without heart failure, with stage 1 through stage 4 chronic kidney disease, or unspecified chronic kidney disease SNOMED: 324226375 (10) Hyperkalemia ICD Codes: E87.5 - Hyperkalemia SNOMED: 61632760 (11) Elevated troponin Assessment & Plan: Possibly in setting of renal insufficiency vs NSTEMi type 2 in setting of CHF ICD Codes: R74.8 - Abnormal levels of other serum enzymes SNOMED: 715511159, 740118443 (12) COPD (chronic obstructive pulmonary disease) ICD Codes: J44.9 - Chronic obstructive pulmonary disease, unspecified SNOMED: 61291035 (13) Abdominal pain ICD Codes: R10.9 - Unspecified abdominal pain SNOMED: 32999254 (14) Hemoptysis ICD Codes: R04.2 - Hemoptysis SNOMED: 97534823 (15) Acute blood loss anemia ICD Codes: D62 - Acute posthemorrhagic anemia SNOMED: 599968872 Status: stable Assessment/Plan Monitor on tele Appreciate cardiology rec's Cont to diurese w/ asix 40mg IV BID Duonebs PRN Strict I/O's, daily weights Monitor lytes and replete Monitor Cr closely Cont GDMT w/ coreg, hydralazine, isordil Hold losartan and aldactone for now given RAKESH Cont diflucan 400mg daily ID consulted Given hemoptysis, will check CT chest Trend CBC Pulmonology consulted Given abd pain, will check CT a/p and U/S abd Check lipase, lactate General surgery consulted for abd pain eval Pain control, bowel regimen Supportive care DVT Prophylaxis: SCD, HSQ Code Status: Full Hospital Classification Declaration: Based on this initial evaluation, and depending on the patient's clinical course, I anticipate that this patient will require hospitalization for 2-3 days for CHF exacerbation, hemotpysis and close respiratory/hemodynamic monitoring. Disposition: Once the patient is stable to leave the hospital, I anticipate the patient will likely be discharged to the following environment: back to SNF Discussed with patient/family, nursing staff, SW/CM, cardiology regarding clinical status, treatment course, and disposition planning. D/w cardiology re diuresis. D/w pulm re CT chest for hemptysis. D/w surgery re CT a/p for abd pain Time of note may not reflect time of encounter. Subjective Date patient seen: Dec 06, 2017 Time patient seen: 15:57 ROS Limited/Unobtainable: No Constitutional: Reports: malaise, weakness HEENT: Reports: no symptoms Cardiovascular: Reports: edema Respiratory: Reports: cough, orthopnea, shortness of breath, SOB with excertion , sputum Gastrointestinal/Abdominal: Reports: abdominal pain Genitourinary: Reports: no symptoms Neurologic/Psychiatric: Reports: no symptoms Endocrine: Reports: no symptoms Hematologic/Lymphatic: Reports: no symptoms Allergies: Coded Allergies: No Known Allergies (Unverified , 11/20/17) All Systems: reviewed and negative except above Subjective No acute o/n events Good UOP on lasix IV SCr fairly stable at 1.6 SOB and BLE swelling improving. C/o hemoptysis this AM. Cont to c/o intermittent crampy abd pain. Denies f/c, n/v, d/c, chest pain, dysuria Objective Last 24 Hour Vital Signs Date Time Temp Pulse Resp B/P (MAP) Pulse Ox O2 Delivery O2 Flow Rate FiO2 12/06/17 14:15 81 17 100 Room Air 1/10/18 13:53 81 17 Room Air 12/06/17 13:53 81 17 100 Room Air 12/06/17 04:21 96.9 91 19 99/71 94 Nasal Cannula 12/06/17 04:00 95 12/06/17 02:00 Room Air 21 12/06/17 02:00 Room Air 21 12/06/17 00:00 88 12/05/17 22:30 97.0 88 20 92/69 100 Room Air 2.0 21 12/05/17 20:50 97 92/69 12/05/17 20:00 97.0 88 20 94/68 100 Room Air 2.0 21 12/05/17 19:32 Room Air 12/05/17 19:26 94 20 100 Room Air 21 12/05/17 18:00 92 24 98/66 95 Room Air 12/05/17 18:00 98/66 12/05/17 17:09 97.0 94 20 100/67 98 Room Air 2.0 21 12/05/17 16:00 97.0 94 20 100/67 98 Room Air Intake and Output 12/05/17 12/06/17 19:00 07:00 Intake Total 240 ml Output Total 1025 ml 500 ml Balance -785 ml -500 ml Intake Oral 240 ml Output Urine Total 1025 ml 500 ml # Voids 2 # Bowel Movements 3 3 Laboratory Tests 12/06/17 06:30: White Blood Count 6.1, Red Blood Count 3.94L, Hemoglobin 11.6L, Hematocrit 37.5L , Mean Corpuscular Volume 95, Mean Corpuscular Hemoglobin 29.5, Mean Corpuscular Hemoglobin Concent 31.0L, Red Cell Distribution Width 16.6H, Platelet Count 270, Mean Platelet Volume 6.1L, Neutrophils (%) (Auto) 49.5, Lymphocytes (%) (Auto) 31.5, Monocytes (%) (Auto) 17.0H, Eosinophils (%) (Auto) 0.8, Basophils (%) (Auto) 1.2, Sodium Level 138, Potassium Level 4.6, Chloride Level 103, Carbon Dioxide Level 23, Anion Gap 12, Blood Urea Nitrogen 52H, Creatinine 1.6H, Estimat Glomerular Filtration Rate 43.6, Glucose Level 100, Calcium Level 9.2, Magnesium Level 2.3 Height (Feet): 5 Height (Inches): 10.00 Weight (Pounds): 130 Objective General: alert, cooperative, no distress, appears stated age Head: normocephalic, without obvious abnormality, atraumatic Eyes: conjunctivae/corneas clear. PERRL, EOM's intact Throat: lips, mucosa, and tongue normal. MMM Neck: supple, symmetrical, trachea midline, and +JVD Lungs: clear to auscultation bilaterally Heart: regular rate and rhythm, S1, S2 normal, no murmur, click, rub or gallop Abdomen: soft, +TTP of upper abd w/o rebound/guarding, non-distended, bowel sounds normal Extremities: extremities normal, atraumatic, no cyanosis, 1-2+ pitting edema to above the knees BLE Pulses: 2+ and symmetric Skin: skin color, texture, turgor normal; no rashes or lesions Neurologic: grossly normal, no focal deficits Kiara Kulkarni M.D. Dec 06, 2017 15:57
--- NOTE | 2017-12-06 17:03 | Consultation ---
History of Present Illness General Date patient seen: Dec 06, 2017 Chief Complaint: Flu Like Symptoms Referring physician: Primary Reason for Consultation: Abdominal pain Present Illness HPI 67 year old male with multiple medical comorbidities as noted below and recent hospital admissions with cardiac and respiratory decompensation currently being cared for by medial and cardiac team. During this admission patient complaining of abdominal pain. When interviewed patient states that he has had significant epigastric abdominal pain for approximately two weeks now. Pain described as cramping pain without radiation. denies nausea, emesis, or reflux symptoms. states that pain at times can cause discomfort with SOB. does not note anything that makes pain better or worse. has not had similar symptoms prior. states pain is continuous. surgery called to evaluate abdominal pain. Allergies: Coded Allergies: No Known Allergies (Unverified , 11/20/17) Medication History Scheduled Amiodarone Hcl* (Amiodarone Hcl*), 200 MG ORAL EVERY 12 HOURS, (Reported) Aspirin* (Aspir 81*), 81 MG ORAL DAILY, (Reported) Bisacodyl (Dulcolax), 5 MG PO DAILY, (Reported) Carvedilol (Coreg), 3.125 MG ORAL EVERY 12 HOURS, (Reported) Docusate Sodium* (Colace*), 100 MG ORAL DAILY, (Reported) Fluconazole* (Diflucan*), 400 MG ORAL DAILY Furosemide* (Lasix*), 40 MG ORAL TWICE A DAY Heparin Sod (Porcine) (Heparin Sodium*), 5,000 UNITS SUBQ EVERY 12 HOURS, ( Reported) Isosorbide Dinitrate* (Isordil*), 30 MG ORAL DAILY, (Reported) Losartan Potassium* (Losartan Potassium*), 25 MG ORAL DAILY, (Reported) Metoprolol Tartrate* (Metoprolol Tartrate*), 25 MG ORAL DAILY, (Reported) Oseltamivir Phosphate (Oseltamivir Phosphate), 75 MG PO BID, (Reported) Simvastatin (Zocor), 10 MG ORAL BEDTIME, (Reported) Spironolactone* (Aldactone*), 25 MG ORAL DAILY, (Reported) Tamsulosin Hcl (Tamsulosin Hcl*), 0.4 MG ORAL BEDTIME, (Reported) Scheduled PRN Acetaminophen (Acetaminophen), 650 MG ORAL Q4HR PRN for Prn Headache/Temp > 101, (Reported) Ipratropium Jesse 0.5MG/2.5ML (Ipratropium Jesse 0.5MG/2.5ML), 0.5 MG HHN Q6H PRN for Shortness of Breath, (Reported) Patient History History Provided By: Patient, Medical Record, PMD Healthcare decision maker Resuscitation status Advanced Directive on File Yes Past Medical/Surgical History Past Medical/Surgical History: (1) COPD exacerbation (2) Prolonged Q-T interval on ECG (3) Bacteremia (4) Depressed left ventricular ejection fraction (5) CHF exacerbation (6) Atrial fibrillation (7) Pulmonary coccidioidomycosis (8) Cardiomyopathy (9) HTN (hypertension) (10) HLD (hyperlipidemia) (11) BPH (benign prostatic hyperplasia) (12) Chronic systolic (congestive) heart failure (13) Acute on chronic systolic (congestive) heart failure (14) RAKESH (acute kidney injury) (15) Cardiorenal syndrome (16) Elevated troponin (17) COPD (chronic obstructive pulmonary disease) (18) lives at snf (19) Abdominal pain (20) Acute blood loss anemia (21) Hemoptysis (22) Hyperkalemia Review of Systems Constitutional: Reports: weakness, Denies: no symptoms, see HPI, chills, sweats , fever, malaise, other Eye: Denies: no symptoms, see HPI, eye pain, blurred vision, tearing, double vision, nose pain, nose congestion, acuity changes, discharge, other ENT: Denies: no symptoms, see HPI, ear pain, ear discharge, nose pain, nose congestion, throat pain, throat swelling, mouth pain, hearing loss, nasal discharge, other Respiratory: Reports: shortness of breath Cardiovascular: Reports: chest pain Gastrointestinal: Reports: abdominal pain Genitourinary: Denies: no symptoms, see HPI, discharge, dysuria, frequency, hematuria, pain, retention, incontinence, urgency, vag bleed/dc, other Musculoskeletal: Denies: no symptoms, see HPI, back pain, gout, joint pain, joint swelling, muscle pain, muscle stiffness, other Skin: Denies: no symptoms, see HPI, rash, change in color, change in hair/nails , dryness, lesions, other Psychiatric: Denies: no symptoms, see HPI, prior hx, anxiety, depressed feelings, emotional problems, SI, HI, hallucinations, other Neurological: Denies: no symptoms, see HPI, headache, numbness, paresthesia, seizure, tingling, tremors, focal weakness, syncope, dizziness, other Endocrine: Denies: no symptoms, see HPI, excessive sweating, flushing, intolerance to temperature, increased thirst, increased urine, unexplained weight loss, other Hematologic/Lymphatic: Denies: no symptoms, see HPI, anemia, blood clots, easy bleeding, easy bruising, swollen glands, diathesis, other Physical Exam General Appearance: no apparent distress, alert Lines, tubes and drains: peripheral HEENT: normocephalic, anicteric, mucous membranes moist Neck: normal inspection Respiratory/Chest: no respiratory distress, no accessory muscle use, decreased breath sounds Cardiovascular/Chest: regularly irregular, pacemaker/AICD Abdomen: normal bowel sounds, soft, no organomegaly, no mass, tender, other - epigastric tendneress, no rebound, no guarding Extremities: normal inspection Neurologic: alert, oriented x 3, responsive Last 24 Hour Vital Signs Date Time Temp Pulse Resp B/P (MAP) Pulse Ox O2 Delivery O2 Flow Rate FiO2 12/06/17 14:15 81 17 100 Room Air 12/06/17 13:53 81 17 Room Air 12/06/17 13:53 81 17 100 Room Air 12/06/17 04:21 96.9 91 19 99/71 94 Nasal Cannula 12/06/17 04:00 95 12/06/17 02:00 Room Air 21 12/06/17 02:00 Room Air 21 12/06/17 00:00 88 12/05/17 22:30 97.0 88 20 92/69 100 Room Air 2.0 21 12/05/17 20:50 97 92/69 12/05/17 20:00 97.0 88 20 94/68 100 Room Air 2.0 21 12/05/17 19:32 Room Air 12/05/17 19:26 94 20 100 Room Air 21 12/05/17 18:00 92 24 98/66 95 Room Air 12/05/17 18:00 98/66 12/05/17 17:09 97.0 94 20 100/67 98 Room Air 2.0 21 Intake and Output 12/05/17 12/06/17 19:00 07:00 Intake Total 240 ml Output Total 1025 ml 500 ml Balance -785 ml -500 ml Intake Oral 240 ml Output Urine Total 1025 ml 500 ml # Voids 2 # Bowel Movements 3 3 Laboratory Tests Test 12/06/17 06:30 White Blood Count 6.1 K/UL (4.8-10.8) Red Blood Count 3.94 M/UL (4.70-6.10) L Hemoglobin 11.6 G/DL (14.2-18.0) L Hematocrit 37.5 % (42.0-52.0) L Mean Corpuscular Volume 95 FL (80-99) Mean Corpuscular Hemoglobin 29.5 PG (27.0-31.0) Mean Corpuscular Hemoglobin Concent 31.0 G/DL (32.0-36.0) L Red Cell Distribution Width 16.6 % (11.6-14.8) H Platelet Count 270 K/UL (150-450) Mean Platelet Volume 6.1 FL (6.5-10.1) L Neutrophils (%) (Auto) 49.5 % (45.0-75.0) Lymphocytes (%) (Auto) 31.5 % (20.0-45.0) Monocytes (%) (Auto) 17.0 % (1.0-10.0) H Eosinophils (%) (Auto) 0.8 % (0.0-3.0) Basophils (%) (Auto) 1.2 % (0.0-2.0) Sodium Level 138 MMOL/L (136-145) Potassium Level 4.6 MMOL/L (3.5-5.1) Chloride Level 103 MMOL/L (98-107) Carbon Dioxide Level 23 MMOL/L (21-32) Anion Gap 12 mmol/L (5-15) Blood Urea Nitrogen 52 mg/dL (7-18) H Creatinine 1.6 MG/DL (0.55-1.30) H Estimat Glomerular Filtration Rate 43.6 mL/min (>60) Glucose Level 100 MG/DL (74-106) Calcium Level 9.2 MG/DL (8.5-10.1) Magnesium Level 2.3 MG/DL (1.8-2.4) Height (Feet): 5 Height (Inches): 10.00 Weight (Pounds): 130 Medications Current Medications Medications (Trade) Dose Ordered Sig/Sanjay Route PRN Reason Start Time Stop Time Status Last Admin Dose Admin Atorvastatin Calcium (Lipitor) 10 mg BEDTIME ORAL 12/05/17 21:00 01/04/18 20:59 Carvedilol (Coreg) 3.125 mg EVERY 12 HOURS ORAL 12/05/17 09:30 01/04/18 09:29 Fluconazole (Diflucan) 400 mg DAILY ORAL 12/05/17 11:00 12/12/17 10:59 12/06/17 09:12 Furosemide (Lasix) 40 mg BID IV 12/05/17 11:00 01/04/18 10:59 12/06/17 09:05 Heparin Sodium (Porcine) (Heparin 5000 units/ml) 5,000 units EVERY 12 HOURS SUBQ 12/05/17 09:30 01/04/18 09:29 12/05/17 21:04 Hydralazine HCl (Apresoline) 25 mg Q12HR ORAL 12/05/17 18:00 01/04/18 17:59 Ipratropium Jesse (Atrovent) 500 mcg Q6HRT HHN 12/05/17 12:00 12/10/17 11:59 12/06/17 14:13 Isosorbide Dinitrate (Isordil) 30 mg DAILY ORAL 12/05/17 09:30 01/04/18 09:29 Pantoprazole (Protonix) 40 mg DAILY ORAL 12/06/17 16:30 01/05/18 16:29 Simethicone (Mylicon) 80 mg Q6H PRN ORAL ABDOMINAL / GAS PAIN 12/06/17 14:30 01/05/18 14:29 Tamsulosin HCl (Flomax) 0.4 mg BEDTIME ORAL 12/05/17 21:00 01/04/18 20:59 Assessment/Plan Problem List: (1) Abdominal pain Assessment & Plan: 67M epigastric abdominal pain x 2 weeks. constant discomfort, no radiation, described as cramping. no n/v/f/c. multiple other medical comorbidities. given extensive cardiac and pulmonary history could have multiple etiologies. will need further work up to ensure stable and safe. -CT A/P. will need to be non contrast given patients poor renal function -ultrasound abdomen -trend labs will follow with serial exams and recs as test result thank you for this consultation and allowing me to participate in Mr. Alvarado's care. ICD Codes: R10.9 - Unspecified abdominal pain SNOMED: 19634697 Qualifiers: Qualified Codes: R10.13 - Epigastric pain Status: stable Mark Bray Dec 06, 2017 17:03
--- NOTE | 2017-12-06 19:16 | Consultation ---
History of Present Illness General Date patient seen: Dec 06, 2017 Chief Complaint: Shortness of breah Referring physician: Dr. Fish Reason for Consultation: Shortness of breath Present Illness HPI 67y/o male with pmhx of COPD, Afib, HTN, HLD, BPH, and systolic CHF presented from SNF for increasing shortness of breath. Patient was recently admitted to [facility] for CHF exacerbation and was diuresed and sent back to SNF on 11/24/17. Apparently [facility] staff were observing patient having abnormal breathing and the patient reporting increasing shorntess of breath. Patient also reporting increase in peripheral edema, bilateral lower extremity with increasing cough since readmitted to [facility]. Patient is awake however appears slightly weak and lethargic. The patient will receive supplmental oxygen and breathing treatments for probable COPD excacerbation and possible pulmonary edema secondary to congestive heart failure. Allergies: Coded Allergies: No Known Allergies (Unverified , 11/20/17) Medication History Scheduled Aspirin* (Aspir 81*), 81 MG ORAL DAILY, (Reported) Bisacodyl (Dulcolax), 5 MG PO DAILY, (Reported) Carvedilol (Coreg), 3.125 MG ORAL EVERY 12 HOURS, (Reported) Docusate Sodium* (Colace*), 100 MG ORAL DAILY, (Reported) Fluconazole* (Diflucan*), 200 MG ORAL DAILY Furosemide* (Lasix*), 40 MG ORAL TWICE A DAY Heparin Sod (Porcine) (Heparin Sodium*), 5,000 UNITS SUBQ EVERY 12 HOURS, ( Reported) Isosorbide Dinitrate* (Isordil*), 30 MG ORAL DAILY, (Reported) Losartan Potassium* (Losartan Potassium*), 25 MG ORAL DAILY, (Reported) Methadone Hcl* (Methadone*), 5 MG ORAL BID Metoprolol Tartrate* (Metoprolol Tartrate*), 25 MG ORAL DAILY, (Reported) Simvastatin (Zocor), 10 MG ORAL BEDTIME, (Reported) Tamsulosin Hcl (Tamsulosin Hcl*), 0.4 MG ORAL BEDTIME, (Reported) Theophylline (Theodur*), 100 MG ORAL EVERY 12 HOURS Scheduled PRN Acetaminophen (Acetaminophen), 650 MG ORAL Q4HR PRN for Prn Headache/Temp > 101, (Reported) Ipratropium Erwin 0.5MG/2.5ML (Ipratropium Erwin 0.5MG/2.5ML), 0.5 MG HHN Q6H PRN for Shortness of Breath, (Reported) Simethicone* (Simethicone*), 80 MG ORAL Q6H PRN Patient History Healthcare decision maker Resuscitation status Advanced Directive on File Yes Past Medical/Surgical History Past Medical/Surgical History: (1) Atrial fibrillation (2) Cardiomyopathy (3) Pulmonary coccidioidomycosis (4) HTN (hypertension) (5) HLD (hyperlipidemia) (6) Chronic systolic (congestive) heart failure (7) BPH (benign prostatic hyperplasia) (8) Acute on chronic systolic (congestive) heart failure (9) RAKESH (acute kidney injury) (10) Cardiorenal syndrome (11) Elevated troponin (12) lives at snf (13) COPD (chronic obstructive pulmonary disease) (14) Acute blood loss anemia (15) Hemoptysis (16) Abdominal pain (17) Hyperkalemia (18) Prolonged Q-T interval on ECG (19) Bacteremia (20) COPD exacerbation (21) CHF exacerbation (22) Depressed left ventricular ejection fraction Review of Systems Constitutional: Reports: malaise, weakness Respiratory: Reports: cough, shortness of breath Physical Exam General Appearance: mild distress Lines, tubes and drains: peripheral HEENT: normocephalic, atraumatic, anicteric, PERRL Neck: non-tender, normal alignment, supple, normal inspection Respiratory/Chest: chest wall non-tender, decreased breath sounds, accessory muscle use, expiratory wheezing Breasts: no masses Cardiovascular/Chest: normal peripheral pulses, normal rate, regular rhythm, no JVD Abdomen: normal bowel sounds, non tender, soft, no organomegaly, no mass Genitourinary/Rectal: normal genital exam, normal rectal exam Extremities: normal range of motion, non-tender, normal inspection, no calf tenderness 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 normal, no motor/sensory deficits Last 24 Hour Vital Signs Date Time Temp Pulse Resp B/P (MAP) Pulse Ox O2 Delivery O2 Flow Rate FiO2 12/06/17 16:00 97 12/06/17 14:15 81 17 100 Room Air 12/06/17 13:53 81 17 Room Air 12/06/17 13:53 81 17 100 Room Air 12/06/17 12:00 99 12/06/17 08:00 96 12/06/17 04:21 96.9 91 19 99/71 94 Nasal Cannula 12/06/17 04:00 95 12/06/17 02:00 Room Air 21 12/06/17 02:00 Room Air 21 12/06/17 00:00 88 12/05/17 22:30 97.0 88 20 92/69 100 Room Air 2.0 21 12/05/17 20:50 97 92/69 12/05/17 20:00 97.0 88 20 94/68 100 Room Air 2.0 21 12/05/17 19:32 Room Air 12/05/17 19:26 94 20 100 Room Air 21 Intake and Output 12/05/17 12/06/17 19:00 07:00 Intake Total 240 ml Output Total 1025 ml 500 ml Balance -785 ml -500 ml Intake Oral 240 ml Output Urine Total 1025 ml 500 ml # Voids 2 # Bowel Movements 3 3 Laboratory Tests Test 12/06/17 06:30 12/06/17 17:55 White Blood Count 6.1 K/UL (4.8-10.8) Red Blood Count 3.94 M/UL (4.70-6.10) L Hemoglobin 11.6 G/DL (14.2-18.0) L Hematocrit 37.5 % (42.0-52.0) L Mean Corpuscular Volume 95 FL (80-99) Mean Corpuscular Hemoglobin 29.5 PG (27.0-31.0) Mean Corpuscular Hemoglobin Concent 31.0 G/DL (32.0-36.0) L Red Cell Distribution Width 16.6 % (11.6-14.8) H Platelet Count 270 K/UL (150-450) Mean Platelet Volume 6.1 FL (6.5-10.1) L Neutrophils (%) (Auto) 49.5 % (45.0-75.0) Lymphocytes (%) (Auto) 31.5 % (20.0-45.0) Monocytes (%) (Auto) 17.0 % (1.0-10.0) H Eosinophils (%) (Auto) 0.8 % (0.0-3.0) Basophils (%) (Auto) 1.2 % (0.0-2.0) Sodium Level 138 MMOL/L (136-145) Potassium Level 4.6 MMOL/L (3.5-5.1) Chloride Level 103 MMOL/L (98-107) Carbon Dioxide Level 23 MMOL/L (21-32) Anion Gap 12 mmol/L (5-15) Blood Urea Nitrogen 52 mg/dL (7-18) H Creatinine 1.6 MG/DL (0.55-1.30) H Estimat Glomerular Filtration Rate 43.6 mL/min (>60) Glucose Level 100 MG/DL (74-106) Calcium Level 9.2 MG/DL (8.5-10.1) Magnesium Level 2.3 MG/DL (1.8-2.4) Lactic Acid Level 2.60 mmol/L (0.66-2.22) H Lipase 58 U/L (73-393) L Height (Feet): 5 Height (Inches): 10.00 Weight (Pounds): 130 Medications Current Medications Medications (Trade) Dose Ordered Sig/Sanjay Route PRN Reason Start Time Stop Time Status Last Admin Dose Admin Atorvastatin Calcium (Lipitor) 10 mg BEDTIME ORAL 12/05/17 21:00 01/04/18 20:59 Carvedilol (Coreg) 3.125 mg EVERY 12 HOURS ORAL 12/05/17 09:30 01/04/18 09:29 Fluconazole (Diflucan) 400 mg DAILY ORAL 12/05/17 11:00 12/12/17 10:59 12/06/17 09:12 Furosemide (Lasix) 40 mg BID IV 12/05/17 11:00 01/04/18 10:59 12/06/17 18:29 Heparin Sodium (Porcine) (Heparin 5000 units/ml) 5,000 units EVERY 12 HOURS SUBQ 12/05/17 09:30 01/04/18 09:29 12/05/17 21:04 Hydralazine HCl (Apresoline) 25 mg Q12HR ORAL 12/05/17 18:00 01/04/18 17:59 Ipratropium [place] (Atrovent) 500 mcg Q6HRT HHN 12/05/17 12:00 12/10/17 11:59 12/06/17 14:13 Isosorbide Dinitrate (Isordil) 30 mg DAILY ORAL 12/05/17 09:30 01/04/18 09:29 Pantoprazole (Protonix) 40 mg DAILY ORAL 12/06/17 16:30 01/05/18 16:29 12/06/17 18:29 Simethicone (Mylicon) 80 mg Q6H PRN ORAL ABDOMINAL / GAS PAIN 12/06/17 14:30 01/05/18 14:29 Tamsulosin HCl (Flomax) 0.4 mg BEDTIME ORAL 12/05/17 21:00 01/04/18 20:59 Assessment/Plan Status: stable, progressing Assessment/Plan (1) Hemoptysis (2) COPD (chronic obstructive pulmonary disease) (3) Chronic systolic (congestive) heart failure (4) Pulmonary coccidioidomycosis (5) Atrial fibrillation PLAN Hemoptysis improved Check sputum Breathing Tx as needed for SOB Increase theophyline to BID Low dose methadone for chronic dyspnea Pt will need comfort and palliative care. AARON BOWLING Dec 06, 2017 19:16
[2017-12-06 20:00] VITALS: BP 98/49
[2017-12-06] MEDS: Simethicone 80mg tab ORAL PRN (20:48)
[2017-12-06] MEDS: Tamsulosin 0.4mg cap ORAL SCH (20:50)
--- NOTE | 2017-12-06 21:53 | Infectious Diseases Prog Note ---
Assessment/Plan Assessment/Plan Full consult dictated: A) 1) sob 2) hx cocci pna and influenza infection, s/p tamiflu, on diflucan 3) allergies - negative 4) chest x-ray negative P) 1) diflucan 2) check ct chest 3) check f/u cocci serology titers/cf Subjective Allergies: Coded Allergies: No Known Allergies (Unverified , 11/20/17) Objective Vital Signs Last 24 Hour Vital Signs Date Time Temp Pulse Resp B/P (MAP) Pulse Ox O2 Delivery O2 Flow Rate FiO2 12/06/17 19:30 Nasal Cannula 12/06/17 19:28 Nasal Cannula 12/06/17 16:00 97 12/06/17 14:15 81 17 100 Room Air 12/06/17 13:53 81 17 Room Air 12/06/17 13:53 81 17 100 Room Air 12/06/17 12:00 99 12/06/17 08:00 96 12/06/17 04:21 96.9 91 19 99/71 94 Nasal Cannula 12/06/17 04:00 95 12/06/17 02:00 Room Air 21 12/06/17 02:00 Room Air 21 12/06/17 00:00 88 12/05/17 22:30 97.0 88 20 92/69 100 Room Air 2.0 21 Height (Feet): 5 Height (Inches): 10.00 Weight (Pounds): 130 Microbiology Date/Time Source Procedure Growth Status 12/05/17 08:00 Nasal Nares Influenza Types A,B Antigen (PAOLO) - Final Complete Laboratory Tests Test 12/06/17 06:30 12/06/17 17:55 White Blood Count 6.1 K/UL (4.8-10.8) Red Blood Count 3.94 M/UL (4.70-6.10) L Hemoglobin 11.6 G/DL (14.2-18.0) L Hematocrit 37.5 % (42.0-52.0) L Mean Corpuscular Volume 95 FL (80-99) Mean Corpuscular Hemoglobin 29.5 PG (27.0-31.0) Mean Corpuscular Hemoglobin Concent 31.0 G/DL (32.0-36.0) L Red Cell Distribution Width 16.6 % (11.6-14.8) H Platelet Count 270 K/UL (150-450) Mean Platelet Volume 6.1 FL (6.5-10.1) L Neutrophils (%) (Auto) 49.5 % (45.0-75.0) Lymphocytes (%) (Auto) 31.5 % (20.0-45.0) Monocytes (%) (Auto) 17.0 % (1.0-10.0) H Eosinophils (%) (Auto) 0.8 % (0.0-3.0) Basophils (%) (Auto) 1.2 % (0.0-2.0) Sodium Level 138 MMOL/L (136-145) Potassium Level 4.6 MMOL/L (3.5-5.1) Chloride Level 103 MMOL/L (98-107) Carbon Dioxide Level 23 MMOL/L (21-32) Anion Gap 12 mmol/L (5-15) Blood Urea Nitrogen 52 mg/dL (7-18) H Creatinine 1.6 MG/DL (0.55-1.30) H Estimat Glomerular Filtration Rate 43.6 mL/min (>60) Glucose Level 100 MG/DL (74-106) Calcium Level 9.2 MG/DL (8.5-10.1) Magnesium Level 2.3 MG/DL (1.8-2.4) Lactic Acid Level 2.60 mmol/L (0.66-2.22) H Lipase 58 U/L (73-393) L Current Medications Medications (Trade) Dose Ordered Sig/Sanjay Route PRN Reason Start Time Stop Time Status Last Admin Dose Admin Atorvastatin Calcium (Lipitor) 10 mg BEDTIME ORAL 12/05/17 21:00 01/04/18 20:59 12/06/17 20:51 Carvedilol (Coreg) 3.125 mg EVERY 12 HOURS ORAL 12/05/17 09:30 01/04/18 09:29 Fluconazole (Diflucan) 400 mg DAILY ORAL 12/05/17 11:00 12/12/17 10:59 12/06/17 09:12 Furosemide (Lasix) 40 mg BID IV 12/05/17 11:00 01/04/18 10:59 12/06/17 18:29 Heparin Sodium (Porcine) (Heparin 5000 units/ml) 5,000 units EVERY 12 HOURS SUBQ 12/05/17 09:30 01/04/18 09:29 12/05/17 21:04 Hydralazine HCl (Apresoline) 25 mg Q12HR ORAL 12/05/17 18:00 01/04/18 17:59 Ipratropium [place] (Atrovent) 500 mcg Q6HRT HHN 12/05/17 12:00 12/10/17 11:59 12/06/17 14:13 Isosorbide Dinitrate (Isordil) 30 mg DAILY ORAL 12/05/17 09:30 01/04/18 09:29 Pantoprazole (Protonix) 40 mg DAILY ORAL 12/06/17 16:30 01/05/18 16:29 12/06/17 18:29 Simethicone (Mylicon) 80 mg Q6H PRN ORAL ABDOMINAL / GAS PAIN 12/06/17 14:30 01/05/18 14:29 12/06/17 20:48 Tamsulosin HCl (Flomax) 0.4 mg BEDTIME ORAL 12/05/17 21:00 01/04/18 20:59 12/06/17 20:50 Theophylline (Campos-Dur) 100 mg DAILY ORAL 12/07/17 09:00 01/06/18 08:59 MARÍA ESTRELLA Dec 06, 2017 21:53
[2017-12-07 00:20] VITALS: BP 100/58
[2017-12-07] MEDS: Ipratropium 0.02% Inh Soln 2.5ml UD HHN SCH ×4 (01:00→20:24)
[2017-12-07 04:30] VITALS: BP 53/48
[2017-12-07 08:00] VITALS: BP 102/67
[2017-12-07] MEDS ORDERED: Theophylline ER 100mg ORAL SCH (09:00)
[2017-12-07] MEDS: Heparin 5000 units/ml inj SUBQ SCH ×2 (09:00→20:35)
[2017-12-07] MEDS: HydrALAZINE 25mg tab ORAL SCH ×2 (09:00→20:36)
[2017-12-07] MEDS: Fluconazole 100mg tab ORAL SCH (09:33)
--- NOTE | 2017-12-07 10:08 | Diagnostic Imaging Report ---
Indication:Abdominal pain Technique: Grayscale and duplex Doppler imaging of the abdomen performed. Comparison: None Findings: Liver is prominent measuring 20 cm and appears slightly echogenic. The spleen is normal in size. There is trace ascites. The aorta is mildly calcified. There is a hypoechoic, possibly a cystic structure in the upper pole of the left kidney although this may be complex. Follow-up CT is suggested. There are more typical appearing cysts noted within the right kidney. There is no hydronephrosis. There are calcifications within both kidneys likely nonobstructive stones. There is slight thickening of the gallbladder wall. No gallstones are seen. The portal vein is patent by Doppler examination. Pancreas is not well seen on this study. CBD is 3 mm. IMPRESSION: Hepatomegaly with fatty infiltration. Suspicion of bilateral nonobstructive renal stones. 1.6 cm complex cystic mass in the left kidney. Suggest contrast enhanced CT for follow-up. Multiple small cysts within the right kidney. Mild gallbladder wall thickening nonspecific. Trace ascites. Atherosclerotic vascular disease
--- NOTE | 2017-12-07 10:53 | General Progress Note ---
Assessment/Plan Problem List: (1) Acute on chronic systolic (congestive) heart failure ICD Codes: I50.23 - Acute on chronic systolic (congestive) heart failure SNOMED: 12630065, 237257429 (2) Cardiomyopathy Assessment & Plan: EF <20% ICD Codes: I42.9 - Cardiomyopathy, unspecified SNOMED: 53946616 (3) Atrial fibrillation ICD Codes: I48.91 - Unspecified atrial fibrillation SNOMED: 72951102 (4) Pulmonary coccidioidomycosis ICD Codes: B38.2 - Pulmonary coccidioidomycosis, unspecified SNOMED: 610429079 (5) HTN (hypertension) ICD Codes: I10 - Essential (primary) hypertension SNOMED: 99883471 (6) HLD (hyperlipidemia) ICD Codes: E78.5 - Hyperlipidemia, unspecified SNOMED: 09510845 (7) BPH (benign prostatic hyperplasia) ICD Codes: N40.0 - Benign prostatic hyperplasia without lower urinary tract symptoms SNOMED: 084622612 (8) RAKESH (acute kidney injury) ICD Codes: N17.9 - Acute kidney failure, unspecified SNOMED: 98368090 (9) Cardiorenal syndrome ICD Codes: I13.10 - Hypertensive heart and chronic kidney disease without heart failure, with stage 1 through stage 4 chronic kidney disease, or unspecified chronic kidney disease SNOMED: 026029556 (10) Hyperkalemia ICD Codes: E87.5 - Hyperkalemia SNOMED: 23060144 (11) Elevated troponin Assessment & Plan: Possibly in setting of renal insufficiency vs NSTEMi type 2 in setting of CHF ICD Codes: R74.8 - Abnormal levels of other serum enzymes SNOMED: 714110065, 236755635 (12) COPD (chronic obstructive pulmonary disease) ICD Codes: J44.9 - Chronic obstructive pulmonary disease, unspecified SNOMED: 02698403 (13) Abdominal pain ICD Codes: R10.9 - Unspecified abdominal pain SNOMED: 24848094 Qualifiers: Qualified Codes: R10.13 - Epigastric pain (14) Hemoptysis ICD Codes: R04.2 - Hemoptysis SNOMED: 20402120 (15) Acute blood loss anemia ICD Codes: D62 - Acute posthemorrhagic anemia SNOMED: 151360867 Status: stable Assessment/Plan Monitor on tele [facility] cardiology rec's Cont to diurese w/ asix 40mg IV BID Duonebs PRN Strict I/O's, daily weights Monitor lytes and replete Monitor Cr closely Cont GDMT w/ coreg, hydralazine, isordil Hold losartan and aldactone for now given RAKESH ID consulted Diflucan dose reduced to 200mg daily given elevated SCr PUlm consulted CT chest showed cardiomegaly, no acute pathology Gen surg consulted CT a/p unremarkable U/S abd showed hepatomegaly Pain control, bowel regimen Supportive care DC planning back to SNF likely tomorrow DVT Prophylaxis: SCD, HSQ Code Status: Full Hospital Classification Declaration: Based on this initial evaluation, and depending on the patient's clinical course, I anticipate that this patient will require hospitalization for 1-2 days for CHF exacerbation, hemoptysis and close respiratory/hemodynamic monitoring. Disposition: Once the patient is stable to leave the hospital, I anticipate the patient will likely be discharged to the following environment: back to SNF Discussed with patient/family, nursing staff, SW/CM, cardiology regarding clinical status, treatment course, and disposition planning. D/w cardiology re diuresis. D/w ID re abx Time of note may not reflect time of encounter. Subjective Date patient seen: Dec 07, 2017 Time patient seen: 10:53 ROS Limited/Unobtainable: No Constitutional: Reports: no symptoms HEENT: Reports: no symptoms Cardiovascular: Reports: no symptoms Respiratory: Reports: cough, shortness of breath, SOB with excertion Gastrointestinal/Abdominal: Reports: no symptoms Genitourinary: Reports: no symptoms Neurologic/Psychiatric: Reports: no symptoms Endocrine: Reports: no symptoms Hematologic/Lymphatic: Reports: no symptoms Allergies: Coded Allergies: No Known Allergies (Unverified , 11/20/17) All Systems: reviewed and negative except above Subjective No acute o/n events Good UOP on lasix IV SCr down to 1.5 SOB and BLE swelling improving. No further hemoptysis. Cont to c/o intermittent crampy abd pain. Denies f/c, n/v, d/c, chest pain, dysuria Objective Last 24 Hour Vital Signs Date Time Temp Pulse Resp B/P (MAP) Pulse Ox O2 Delivery O2 Flow Rate FiO2 12/07/17 09:33 91 102/67 12/07/17 09:00 102/67 12/07/17 08:00 92 12/07/17 08:00 97.5 91 20 102/67 97 12/07/17 07:14 90 18 99 Nasal Cannula 2.0 28 12/07/17 07:04 Nasal Cannula 2.0 28 12/07/17 07:04 87 19 99 Nasal Cannula 2.0 28 12/07/17 07:04 99 Nasal Cannula 2.0 28 12/07/17 04:30 97.2 85 20 53/48 100 12/07/17 04:00 86 12/07/17 02:11 Nasal Cannula 12/07/17 02:10 90 18 100 Nasal Cannula 2.0 28 12/07/17 00:20 98.0 88 20 100/58 99 12/07/17 00:00 83 12/06/17 23:22 92 18 99 Nasal Cannula 2.0 28 12/06/17 23:10 94 18 99 Nasal Cannula 2.0 28 12/06/17 21:00 90/46 12/06/17 21:00 95 90/46 12/06/17 20:00 91 12/06/17 20:00 97.8 93 20 98/49 100 12/06/17 19:30 Nasal Cannula 2.0 28 12/06/17 19:30 Nasal Cannula 12/06/17 19:30 99 Nasal Cannula 2.0 28 12/06/17 19:28 Nasal Cannula 12/06/17 16:00 97 12/06/17 14:15 81 17 100 Room Air 12/06/17 13:53 81 17 Room Air 12/06/17 13:53 81 17 100 Room Air 12/06/17 12:00 99 Intake and Output 12/06/17 12/07/17 19:00 07:00 Intake Total 360 ml Output Total 400 ml 400 ml Balance -40 ml -400 ml Intake Oral 360 ml Output Urine Total 400 ml 400 ml # Voids 2 Laboratory Tests 12/06/17 17:55: Lactic Acid Level 2.60H, Lipase 58L Height (Feet): 5 Height (Inches): 10.00 Weight (Pounds): 130 Objective General: alert, cooperative, no distress, appears stated age Head: normocephalic, without obvious abnormality, atraumatic Eyes: conjunctivae/corneas clear. PERRL, EOM's intact Throat: lips, mucosa, and tongue normal. MMM Neck: supple, symmetrical, trachea midline, and +JVD Lungs: clear to auscultation bilaterally Heart: regular rate and rhythm, S1, S2 normal, no murmur, click, rub or gallop Abdomen: soft, +TTP of upper abd w/o rebound/guarding, non-distended, bowel sounds normal Extremities: extremities normal, atraumatic, no cyanosis, 1-2+ pitting edema to above the knees BLE Pulses: 2+ and symmetric Skin: skin color, texture, turgor normal; no rashes or lesions Neurologic: grossly normal, no focal deficits Kiara Kulkarni M.D. Dec 07, 2017 10:53
[2017-12-07 11:34] LABS: BASOPHILS % (AUTO) 1.3 % (0.0-2.0); EOSINOPHILS % (AUTO) 0.6 % (0.0-3.0); HEMATOCRIT 40.2 % (42.0-52.0); HEMOGLOBIN 12.7 G/DL (14.2-18.0); LYMPHOCYTES % (AUTO) 22.1 % (20.0-45.0); MEAN CORPUSCULAR VOLUME 94 FL (80-99); MONOCYTES % (AUTO) 11.8 % (1.0-10.0); NEUTROPHILS % (AUTO) 64.3 % (45.0-75.0); PLATELET COUNT 278 K/UL (150-450); RED BLOOD COUNT 4.27 M/UL (4.70-6.10); WHITE BLOOD COUNT 4.2 K/UL (4.8-10.8)
[2017-12-07 12:00] VITALS: BP 90/66
[2017-12-07 12:13] LABS: ALANINE AMINOTRANSFERASE 30 U/L (12-78); ALBUMIN 2.9 G/DL (3.4-5.0); ALBUMIN/GLOBULIN RATIO 0.6 (1.0-2.7); ALKALINE PHOSPHATASE 85 U/L (46-116); AMYLASE 40 U/L (25-115); ANION GAP 11 mmol/L (5-15); ASPARTATE AMINO TRANSFERASE 34 U/L (15-37); BILIRUBIN,TOTAL 1.1 MG/DL (0.2-1.0); BLOOD UREA NITROGEN 51 mg/dL (7-18); CALCIUM 9.2 MG/DL (8.5-10.1); CARBON DIOXIDE 24 MMOL/L (21-32); CHLORIDE 102 MMOL/L (98-107); CREATININE 1.5 MG/DL (0.55-1.30); POTASSIUM 4.2 MMOL/L (3.5-5.1); SODIUM 137 MMOL/L (136-145)
[2017-12-07 12:14] LABS: BILIRUBIN,DIRECT 0.4 MG/DL (0.0-0.3); PHOSPHORUS 4.1 MG/DL (2.5-4.9)
--- NOTE | 2017-12-07 14:23 | Diagnostic Imaging Report ---
Indication: Chest and abdominal pain. Multiple medical problems Technique: Continuous helical transaxial imaging of the abdomen and pelvis was obtained from the lung bases to the pubic symphysis. No IV contrast was administered. Coronal 2-D reformats were also obtained. Study obtained in a Siemens sensation [address] Total Dose length Product (DLP): 903.[address] Dose Index Volume (CTDIvol): 13.5 mGy Comparison: None Findings: Breathing motion limits evaluation. CT chest: Hyperlucency noted within the upper lobes consistent with emphysema. No consolidation identified within the lungs. There is massive cardiomegaly. Pacemaker is noted. Aorta is enlarged and shows mural calcification. Exam is limited by the absence of intravenous contrast material not given. CT abdomen and pelvis: Evaluation of solid organs is limited due to IV contrast absence. There is suggestion of a cyst in the right kidney with partially calcified rim measuring 1.5 cm. Dependently hyperdensity layering noted within the gallbladder. There is a hyperdense nodule 1 cm and the left kidney. There are other nonspecific calcifications some of which may represent nonobstructive stones especially in the left kidney. There is no definite evidence of bowel obstruction. There is a trace amount of free fluid within the pelvis. Diverticula are noted in the sigmoid colon region. The appendix is not definite seen. There is generalized diffuse osteopenia. IMPRESSION: No acute findings to account for given history of chest and abdominal pain. Massive cardiomegaly. Pacemaker noted. Atherosclerotic vascular disease. Pulmonary emphysema/COPD. Trace free fluid within the abdomen. Probable cyst in the right kidney. Calcifications in both kidneys nonspecific. Nonobstructive stones may be present. Gallbladder sludge versus small stones Limited study due to the absence of intravenous contrast and breathing motion artifact. The CT scanner at [facility] is accredited by the [employer] and the scans are performed using dose optimization techniques as appropriate to a performed exam including Automatic Exposure control.
--- NOTE | 2017-12-07 15:42 | Cardiac Electrophysiology PN ---
Assessment/Plan Assessment/Plan 1. Troponin leak, likely due to the patient's renal failure with creatinine of 1.6 as well as cardiomyopathy. The patient does not have any chest pain, but his BNP is more than 18,000. Continue Lasix 40 mg IV b.i.d. , Aldactone 25 mg daily and Coreg 3.125 mg b.i.d. , Isordil and ,hydralazine 2. Status post Medtronic atrio-biventricular defibrillator implantation with normal function. 3. Paroxysmal atrial fibrillation, sinus rhythm, off amiodarone as the patient is on Diflucan. 4. Hyperlipidemia, on Lipitor. 5. Chronic obstructive pulmonary disease, on Atrovent. LENA RN DC back to SNF pending Subjective Subjective No events overnight. Diuresing very well.In SR with V pacing.Still has abdominal pain. Objective Last 24 Hour Vital Signs Date Time Temp Pulse Resp B/P (MAP) Pulse Ox O2 Delivery O2 Flow Rate FiO2 12/07/17 13:00 98 16 99 Nasal Cannula 2.0 28 12/07/17 12:50 100 18 96 Nasal Cannula 2.0 28 12/07/17 12:00 97.5 93 21 90/66 98 12/07/17 12:00 101 12/07/17 09:33 91 102/67 12/07/17 09:00 102/67 12/07/17 09:00 102/67 12/07/17 08:00 92 12/07/17 08:00 97.5 91 20 102/67 97 12/07/17 07:14 90 18 99 Nasal Cannula 2.0 28 12/07/17 07:04 Nasal Cannula 2.0 28 12/07/17 07:04 87 19 99 Nasal Cannula 2.0 28 12/07/17 07:04 99 Nasal Cannula 2.0 28 12/07/17 04:30 97.2 85 20 53/48 100 12/07/17 04:00 86 12/07/17 02:11 Nasal Cannula 12/07/17 02:10 90 18 100 Nasal Cannula 2.0 28 12/07/17 00:20 98.0 88 20 100/58 99 12/07/17 00:00 83 12/06/17 23:22 92 18 99 Nasal Cannula 2.0 28 12/06/17 23:10 94 18 99 Nasal Cannula 2.0 28 12/06/17 21:00 90/46 12/06/17 21:00 95 90/46 12/06/17 20:00 91 12/06/17 20:00 97.8 93 20 98/49 100 12/06/17 19:30 Nasal Cannula 2.0 28 12/06/17 19:30 Nasal Cannula 12/06/17 19:30 99 Nasal Cannula 2.0 28 12/06/17 19:28 Nasal Cannula 12/06/17 16:00 97 Intake and Output 12/06/17 12/07/17 19:00 07:00 Intake Total 360 ml Output Total 400 ml 400 ml Balance -40 ml -400 ml Intake Oral 360 ml Output Urine Total 400 ml 400 ml # Voids 2 Laboratory Tests Test 12/06/17 17:55 12/07/17 10:30 Lactic Acid Level 2.60 mmol/L (0.66-2.22) H Lipase 58 U/L (73-393) L 61 U/L (73-393) L White Blood Count 4.2 K/UL (4.8-10.8) L Red Blood Count 4.27 M/UL (4.70-6.10) L Hemoglobin 12.7 G/DL (14.2-18.0) L Hematocrit 40.2 % (42.0-52.0) L Mean Corpuscular Volume 94 FL (80-99) Mean Corpuscular Hemoglobin 29.7 PG (27.0-31.0) Mean Corpuscular Hemoglobin Concent 31.5 G/DL (32.0-36.0) L Red Cell Distribution Width 16.0 % (11.6-14.8) H Platelet Count 278 K/UL (150-450) Mean Platelet Volume 6.3 FL (6.5-10.1) L Neutrophils (%) (Auto) 64.3 % (45.0-75.0) Lymphocytes (%) (Auto) 22.1 % (20.0-45.0) Monocytes (%) (Auto) 11.8 % (1.0-10.0) H Eosinophils (%) (Auto) 0.6 % (0.0-3.0) Basophils (%) (Auto) 1.3 % (0.0-2.0) Sodium Level 137 MMOL/L (136-145) Potassium Level 4.2 MMOL/L (3.5-5.1) Chloride Level 102 MMOL/L (98-107) Carbon Dioxide Level 24 MMOL/L (21-32) Anion Gap 11 mmol/L (5-15) Blood Urea Nitrogen 51 mg/dL (7-18) H Creatinine 1.5 MG/DL (0.55-1.30) H Estimat Glomerular Filtration Rate 47.0 mL/min (>60) Glucose Level 137 MG/DL (74-106) H Calcium Level 9.2 MG/DL (8.5-10.1) Phosphorus Level 4.1 MG/DL (2.5-4.9) Magnesium Level 2.2 MG/DL (1.8-2.4) Total Bilirubin 1.1 MG/DL (0.2-1.0) H Direct Bilirubin 0.4 MG/DL (0.0-0.3) H Aspartate Amino Transf (AST/SGOT) 34 U/L (15-37) Alanine Aminotransferase (ALT/SGPT) 30 U/L (12-78) Alkaline Phosphatase 85 U/L (46-116) Total Protein 7.6 G/DL (6.4-8.2) Albumin 2.9 G/DL (3.4-5.0) L Globulin 4.7 g/dL Albumin/Globulin Ratio 0.6 (1.0-2.7) L Amylase Level 40 U/L (25-115) Microbiology Date/Time Source Procedure Growth Status 12/05/17 08:00 Nasal Nares MRSA Culture - Final Staphylococcus Aureus - Mrsa Complete 12/05/17 08:00 Nasal Nares Influenza Types A,B Antigen (PAOLO) - Final Complete Objective HEAD AND NECK: Positive JVD. LUNGS: Decreased breath sounds. CARDIOVASCULAR: Regular S1 and S2 with no gallop. ICD left subclavian intact. ABDOMEN: Soft. EXTREMITIES: 1+ pitting edema. HECTOR MCCALL Dec 07, 2017 15:42
--- NOTE | 2017-12-07 15:45 | General Surgery Progress Note ---
General Surgery-Progress Note Subjective Additional Comments doing okay. still has sob, epigastric lower chest pain. no n/v/f/c. tolerating diet. Objective Last 24 Hour Vital Signs Date Time Temp Pulse Resp B/P (MAP) Pulse Ox O2 Delivery O2 Flow Rate FiO2 12/07/17 13:00 98 16 99 Nasal Cannula 2.0 28 12/07/17 12:50 100 18 96 Nasal Cannula 2.0 28 12/07/17 12:00 97.5 93 21 90/66 98 12/07/17 12:00 101 12/07/17 09:33 91 102/67 12/07/17 09:00 102/67 12/07/17 09:00 102/67 12/07/17 08:00 92 12/07/17 08:00 97.5 91 20 102/67 97 12/07/17 07:14 90 18 99 Nasal Cannula 2.0 28 12/07/17 07:04 Nasal Cannula 2.0 28 12/07/17 07:04 87 19 99 Nasal Cannula 2.0 28 12/07/17 07:04 99 Nasal Cannula 2.0 28 12/07/17 04:30 97.2 85 20 53/48 100 12/07/17 04:00 86 12/07/17 02:11 Nasal Cannula 12/07/17 02:10 90 18 100 Nasal Cannula 2.0 28 12/07/17 00:20 98.0 88 20 100/58 99 12/07/17 00:00 83 12/06/17 23:22 92 18 99 Nasal Cannula 2.0 28 12/06/17 23:10 94 18 99 Nasal Cannula 2.0 28 12/06/17 21:00 90/46 12/06/17 21:00 95 90/46 12/06/17 20:00 91 12/06/17 20:00 97.8 93 20 98/49 100 12/06/17 19:30 Nasal Cannula 2.0 28 12/06/17 19:30 Nasal Cannula 12/06/17 19:30 99 Nasal Cannula 2.0 28 12/06/17 19:28 Nasal Cannula 12/06/17 16:00 97 I&O Intake and Output 12/06/17 12/07/17 19:00 07:00 Intake Total 360 ml Output Total 400 ml 400 ml Balance -40 ml -400 ml Intake Oral 360 ml Output Urine Total 400 ml 400 ml # Voids 2 Drains: none Cardiovascular: RSR Respiratory: decreased breath sounds Abdomen: soft, flat, tenderness, present bowel sounds Extremities: no edema, no tenderness, no cyanosis Laboratory Tests Test 12/06/17 17:55 12/07/17 10:30 Lactic Acid Level 2.60 mmol/L (0.66-2.22) H Lipase 58 U/L (73-393) L 61 U/L (73-393) L White Blood Count 4.2 K/UL (4.8-10.8) L Red Blood Count 4.27 M/UL (4.70-6.10) L Hemoglobin 12.7 G/DL (14.2-18.0) L Hematocrit 40.2 % (42.0-52.0) L Mean Corpuscular Volume 94 FL (80-99) Mean Corpuscular Hemoglobin 29.7 PG (27.0-31.0) Mean Corpuscular Hemoglobin Concent 31.5 G/DL (32.0-36.0) L Red Cell Distribution Width 16.0 % (11.6-14.8) H Platelet Count 278 K/UL (150-450) Mean Platelet Volume 6.3 FL (6.5-10.1) L Neutrophils (%) (Auto) 64.3 % (45.0-75.0) Lymphocytes (%) (Auto) 22.1 % (20.0-45.0) Monocytes (%) (Auto) 11.8 % (1.0-10.0) H Eosinophils (%) (Auto) 0.6 % (0.0-3.0) Basophils (%) (Auto) 1.3 % (0.0-2.0) Sodium Level 137 MMOL/L (136-145) Potassium Level 4.2 MMOL/L (3.5-5.1) Chloride Level 102 MMOL/L (98-107) Carbon Dioxide Level 24 MMOL/L (21-32) Anion Gap 11 mmol/L (5-15) Blood Urea Nitrogen 51 mg/dL (7-18) H Creatinine 1.5 MG/DL (0.55-1.30) H Estimat Glomerular Filtration Rate 47.0 mL/min (>60) Glucose Level 137 MG/DL (74-106) H Calcium Level 9.2 MG/DL (8.5-10.1) Phosphorus Level 4.1 MG/DL (2.5-4.9) Magnesium Level 2.2 MG/DL (1.8-2.4) Total Bilirubin 1.1 MG/DL (0.2-1.0) H Direct Bilirubin 0.4 MG/DL (0.0-0.3) H Aspartate Amino Transf (AST/SGOT) 34 U/L (15-37) Alanine Aminotransferase (ALT/SGPT) 30 U/L (12-78) Alkaline Phosphatase 85 U/L (46-116) Total Protein 7.6 G/DL (6.4-8.2) Albumin 2.9 G/DL (3.4-5.0) L Globulin 4.7 g/dL Albumin/Globulin Ratio 0.6 (1.0-2.7) L Amylase Level 40 U/L (25-115) Plan Problems: (1) Abdominal pain Assessment & Plan: 67M epigastric abdominal pain x 2 weeks. constant discomfort, no radiation, described as cramping. no n/v/f/c. multiple other medical comorbidities. given extensive cardiac and pulmonary history could have multiple etiologies. will need further work up to ensure stable and safe. CT reviewed and no surgical findings noted. no etiology of epigastric pain noted. Ultrasound reviewed as well. minimal gb wall thickening but no stones. labs reviewed and okay. did note massive cardiomegaly on CT -no organic etiology for pain at this time. no acute surgical intervention necessary. massive cardiomegaly likely etiology of sob, lower chest pain, and possible epigastric pain (radiating pain). waiting cardiology input. -trend labs thank you for this consultation and allowing me to participate in Mr. Alvarado's care. Mark Bray Dec 07, 2017 15:45
[2017-12-07 16:00] VITALS: BP 105/68
--- NOTE | 2017-12-07 16:08 | Pulmonology Progress Note ---
Assessment/Plan Problems: (1) Hemoptysis (2) COPD (chronic obstructive pulmonary disease) (3) Chronic systolic (congestive) heart failure (4) Pulmonary coccidioidomycosis (5) Atrial fibrillation Assessment/Plan hemoptysis improved check sputum increase theophyline to BID low dose methadone for chronic dyspnea pt will need comfort and palliative care. Subjective ROS Limited/Unobtainable: No Interval Events: heomptysis resolved Constitutional: Reports: no symptoms HEENT: Repors: no symptoms Respiratory: Reports: no symptoms Allergies: Coded Allergies: No Known Allergies (Unverified , 11/20/17) Objective Last 24 Hour Vital Signs Date Time Temp Pulse Resp B/P (MAP) Pulse Ox O2 Delivery O2 Flow Rate FiO2 12/07/17 16:00 97.5 104 20 105/68 92 12/07/17 13:00 98 16 99 Nasal Cannula 2.0 28 12/07/17 12:50 100 18 96 Nasal Cannula 2.0 28 12/07/17 12:00 97.5 93 21 90/66 98 12/07/17 12:00 101 12/07/17 09:33 91 102/67 12/07/17 09:00 102/67 12/07/17 09:00 102/67 12/07/17 08:00 92 12/07/17 08:00 97.5 91 20 102/67 97 12/07/17 07:14 90 18 99 Nasal Cannula 2.0 28 12/07/17 07:04 Nasal Cannula 2.0 28 12/07/17 07:04 87 19 99 Nasal Cannula 2.0 28 12/07/17 07:04 99 Nasal Cannula 2.0 28 12/07/17 04:30 97.2 85 20 53/48 100 12/07/17 04:00 86 12/07/17 02:11 Nasal Cannula 12/07/17 02:10 90 18 100 Nasal Cannula 2.0 28 12/07/17 00:20 98.0 88 20 100/58 99 12/07/17 00:00 83 12/06/17 23:22 92 18 99 Nasal Cannula 2.0 28 12/06/17 23:10 94 18 99 Nasal Cannula 2.0 28 12/06/17 21:00 90/46 12/06/17 21:00 95 90/46 12/06/17 20:00 91 12/06/17 20:00 97.8 93 20 98/49 100 12/06/17 19:30 Nasal Cannula 2.0 28 12/06/17 19:30 Nasal Cannula 12/06/17 19:30 99 Nasal Cannula 2.0 28 12/06/17 19:28 Nasal Cannula Intake and Output 12/06/17 12/07/17 19:00 07:00 Intake Total 360 ml Output Total 400 ml 400 ml Balance -40 ml -400 ml Intake Oral 360 ml Output Urine Total 400 ml 400 ml # Voids 2 General Appearance: WD/WN HEENT: normocephalic, PERRL Respiratory/Chest: chest wall non-tender, lungs clear Cardiovascular: normal peripheral pulses, normal rate Abdomen: normal bowel sounds, no organomegaly Genitourinary: normal external genitalia Extremities: no cyanosis Skin: no rash, no ulcers Microbiology Date/Time Source Procedure Growth Status 12/05/17 08:00 Nasal Nares MRSA Culture - Final Staphylococcus Aureus - Mrsa Complete 12/05/17 08:00 Nasal Nares Influenza Types A,B Antigen (PAOLO) - Final Complete Laboratory Tests 12/06/17 17:55: Lactic Acid Level 2.60H, Lipase 58L 12/07/17 10:30: Lipase 61L, White Blood Count 4.2L, Red Blood Count 4.27L, Hemoglobin 12.7L, Hematocrit 40.2L, Mean Corpuscular Volume 94, Mean Corpuscular Hemoglobin 29.7, Mean Corpuscular Hemoglobin Concent 31.5L, Red Cell Distribution Width 16.0H, Platelet Count 278, Mean Platelet Volume 6.3L, Neutrophils (%) (Auto) 64.3, Lymphocytes (%) (Auto) 22.1, Monocytes (%) (Auto) 11.8H, Eosinophils (%) (Auto) 0.6, Basophils (%) (Auto) 1.3, Sodium Level 137, Potassium Level 4.2, Chloride Level 102, Carbon Dioxide Level 24, Anion Gap 11, Blood Urea Nitrogen 51H, Creatinine 1.5H, Estimat Glomerular Filtration Rate 47.0, Glucose Level 137H, Calcium Level 9.2, Phosphorus Level 4.1, Magnesium Level 2.2, Total Bilirubin 1.1H, Direct Bilirubin 0.4H, Aspartate Amino Transf (AST/SGOT) 34, Alanine Aminotransferase (ALT/SGPT) 30, Alkaline Phosphatase 85, Total Protein 7.6, Albumin 2.9L, Globulin 4.7, Albumin/Globulin Ratio 0.6L, Amylase Level 40 Current Medications Medications (Trade) Dose Ordered Sig/Sanjay Route PRN Reason Start Time Stop Time Status Last Admin Dose Admin Atorvastatin Calcium (Lipitor) 10 mg BEDTIME ORAL 12/05/17 21:00 01/04/18 20:59 12/06/17 20:51 Carvedilol (Coreg) 3.125 mg EVERY 12 HOURS ORAL 12/07/17 09:00 01/06/18 08:59 12/07/17 09:33 Fluconazole (Diflucan) 400 mg DAILY ORAL 12/05/17 11:00 12/12/17 10:59 12/07/17 09:33 Furosemide (Lasix) 40 mg BID IV 12/05/17 11:00 01/04/18 10:59 12/07/17 09:00 Heparin Sodium (Porcine) (Heparin 5000 units/ml) 5,000 units EVERY 12 HOURS SUBQ 12/05/17 09:30 01/04/18 09:29 12/05/17 21:04 Hydralazine HCl (Apresoline) 25 mg Q12HR ORAL 12/07/17 09:00 01/06/18 08:59 12/07/17 09:00 Ipratropium [place] (Atrovent) 500 mcg Q6HRT HHN 12/05/17 12:00 12/10/17 11:59 12/07/17 12:50 Isosorbide Dinitrate (Isordil) 30 mg DAILY ORAL 12/05/17 09:30 01/04/18 09:29 12/07/17 09:00 Pantoprazole (Protonix) 40 mg DAILY ORAL 12/06/17 16:30 01/05/18 16:29 12/07/17 09:34 Simethicone (Mylicon) 80 mg Q6H PRN ORAL ABDOMINAL / GAS PAIN 12/06/17 14:30 01/05/18 14:29 12/06/17 20:48 Tamsulosin HCl (Flomax) 0.4 mg BEDTIME ORAL 12/05/17 21:00 01/04/18 20:59 12/06/17 20:50 Theophylline (Campos-Dur) 100 mg EVERY 12 HOURS ORAL 12/07/17 21:00 01/06/18 08:59 AARON PINEDA Dec 07, 2017 16:08
[2017-12-07 20:25] VITALS: BP 131/62
[2017-12-07] MEDS: Theophylline ER 100mg ORAL SCH (20:34)
[2017-12-07] MEDS: Simethicone 80mg tab ORAL PRN (20:34)
[2017-12-07] MEDS: Tamsulosin 0.4mg cap ORAL SCH (20:34)
--- NOTE | 2017-12-07 20:53 | Infectious Diseases Prog Note ---
Assessment/Plan Assessment/Plan A) 1) hx pulmonary cocci/pna, ct negative for pna for now, sob, abdominal pain 2) hx influenza, s/p tamiflu 3) hx + TB gold/? latent TB, f/u TB gold negative 4) cm, af, bph, htn, chf, low ef, copd, hyperlipidemia, pasquale, elevated cr, defibrillator 5) sh - + smoking, allergies - negative, fh-nc, mar noted, notes and records noted 6) d/w RN 7) mrsa colonization and isolation P) 1) diflucan - adjust dose for elevated cr 2) check labs 3) check f/u cocci serology titers/cf 4) continue treatment per primary and consultants 5) orders entered and noted 6) d/w Dr. Craig Subjective Constitutional: Reports: fatigue, Denies: fever HEENT: Reports: congestion Respiratory: Reports: shortness of breath Cardiovascular: Denies: chest pain Gastrointestinal/Abdominal: Denies: nausea, vomiting, diarrhea Genitourinary: Reports: dysuria, other - no bowie, Denies: hematuria, frequency Neurologic: Denies: headache Psychiatric: Denies: depression Skin: Denies: rash Hematologic: Denies: bleeding Musculoskeletal: Denies: pain Allergies: Coded Allergies: No Known Allergies (Unverified , 11/20/17) Objective Vital Signs Last 24 Hour Vital Signs Date Time Temp Pulse Resp B/P (MAP) Pulse Ox O2 Delivery O2 Flow Rate FiO2 12/07/17 20:36 131/62 12/07/17 20:35 99 131/62 12/07/17 20:26 Nasal Cannula 2.0 28 12/07/17 20:26 99 20 97 Nasal Cannula 2.0 28 12/07/17 20:25 98.0 104 20 131/62 98 12/07/17 20:25 97 Nasal Cannula 2.0 28 12/07/17 16:00 97.5 104 20 105/68 92 12/07/17 16:00 105 12/07/17 13:00 98 16 99 Nasal Cannula 2.0 28 12/07/17 12:50 100 18 96 Nasal Cannula 2.0 28 12/07/17 12:00 97.5 93 21 90/66 98 12/07/17 12:00 101 12/07/17 09:33 91 102/67 12/07/17 09:00 102/67 12/07/17 09:00 102/67 12/07/17 08:00 92 12/07/17 08:00 97.5 91 20 102/67 97 12/07/17 07:14 90 18 99 Nasal Cannula 2.0 28 12/07/17 07:04 Nasal Cannula 2.0 28 12/07/17 07:04 87 19 99 Nasal Cannula 2.0 28 12/07/17 07:04 99 Nasal Cannula 2.0 28 12/07/17 04:30 97.2 85 20 53/48 100 12/07/17 04:00 86 12/07/17 02:11 Nasal Cannula 12/07/17 02:10 90 18 100 Nasal Cannula 2.0 28 12/07/17 00:20 98.0 88 20 100/58 99 12/07/17 00:00 83 12/06/17 23:22 92 18 99 Nasal Cannula 2.0 28 12/06/17 23:10 94 18 99 Nasal Cannula 2.0 28 12/06/17 21:00 90/46 12/06/17 21:00 95 90/46 Height (Feet): 5 Height (Inches): 10.00 Weight (Pounds): 130 General Appearance: no acute distress HEENT: normocephalic, atraumatic, anicteric, mucous membranes moist, EOMI, pharynx normal, supple, no JVD Respiratory/Chest: normal breath sounds, no respiratory distress, no accessory muscle use, rhonchi - bilaterally, other - mild sob noted Cardiovascular: normal rate, regular rhythm, no gallop/murmur, no JVD Abdomen: normal bowel sounds, soft, non tender, no organomegaly, non distended Genitourinary: other - no bowie Extremities: no cyanosis Skin: no rash Neurologic/Psychiatric: slot floor attendant II-XII grossly normal, alert, oriented x 3, responsive Lymphatic: no neck adenopathy Musculoskeletal: no effusion Objective CT scan of abdomen and pelvis: IMPRESSION: No acute findings to account for given history of chest and abdominal pain. Massive cardiomegaly. Pacemaker noted. Atherosclerotic vascular disease. Pulmonary emphysema/COPD. Trace free fluid within the abdomen. Probable cyst in the right kidney. Calcifications in both kidneys nonspecific. Nonobstructive stones may be present. Gallbladder sludge versus small stones Chest x-ray - negative Microbiology Date/Time Source Procedure Growth Status 12/05/17 08:00 Nasal Nares MRSA Culture - Final Staphylococcus Aureus - Mrsa Complete 12/05/17 08:00 Nasal Nares Influenza Types A,B Antigen (PAOLO) - Final Complete Laboratory Tests Test 12/07/17 10:30 White Blood Count 4.2 K/UL (4.8-10.8) L Red Blood Count 4.27 M/UL (4.70-6.10) L Hemoglobin 12.7 G/DL (14.2-18.0) L Hematocrit 40.2 % (42.0-52.0) L Mean Corpuscular Volume 94 FL (80-99) Mean Corpuscular Hemoglobin 29.7 PG (27.0-31.0) Mean Corpuscular Hemoglobin Concent 31.5 G/DL (32.0-36.0) L Red Cell Distribution Width 16.0 % (11.6-14.8) H Platelet Count 278 K/UL (150-450) Mean Platelet Volume 6.3 FL (6.5-10.1) L Neutrophils (%) (Auto) 64.3 % (45.0-75.0) Lymphocytes (%) (Auto) 22.1 % (20.0-45.0) Monocytes (%) (Auto) 11.8 % (1.0-10.0) H Eosinophils (%) (Auto) 0.6 % (0.0-3.0) Basophils (%) (Auto) 1.3 % (0.0-2.0) Sodium Level 137 MMOL/L (136-145) Potassium Level 4.2 MMOL/L (3.5-5.1) Chloride Level 102 MMOL/L (98-107) Carbon Dioxide Level 24 MMOL/L (21-32) Anion Gap 11 mmol/L (5-15) Blood Urea Nitrogen 51 mg/dL (7-18) H Creatinine 1.5 MG/DL (0.55-1.30) H Estimat Glomerular Filtration Rate 47.0 mL/min (>60) Glucose Level 137 MG/DL (74-106) H Calcium Level 9.2 MG/DL (8.5-10.1) Phosphorus Level 4.1 MG/DL (2.5-4.9) Magnesium Level 2.2 MG/DL (1.8-2.4) Total Bilirubin 1.1 MG/DL (0.2-1.0) H Direct Bilirubin 0.4 MG/DL (0.0-0.3) H Aspartate Amino Transf (AST/SGOT) 34 U/L (15-37) Alanine Aminotransferase (ALT/SGPT) 30 U/L (12-78) Alkaline Phosphatase 85 U/L (46-116) Total Protein 7.6 G/DL (6.4-8.2) Albumin 2.9 G/DL (3.4-5.0) L Globulin 4.7 g/dL Albumin/Globulin Ratio 0.6 (1.0-2.7) L Amylase Level 40 U/L (25-115) Lipase 61 U/L (73-393) L Current Medications Medications (Trade) Dose Ordered Sig/Asnjay Route PRN Reason Start Time Stop Time Status Last Admin Dose Admin Atorvastatin Calcium (Lipitor) 10 mg BEDTIME ORAL 12/05/17 21:00 01/04/18 20:59 12/07/17 20:34 Carvedilol (Coreg) 3.125 mg EVERY 12 HOURS ORAL 12/07/17 09:00 01/06/18 08:59 12/07/17 20:35 Fluconazole (Diflucan) 400 mg DAILY ORAL 12/05/17 11:00 12/12/17 10:59 12/07/17 09:33 Furosemide (Lasix) 40 mg BID IV 12/05/17 11:00 01/04/18 10:59 12/07/17 18:00 Heparin Sodium (Porcine) (Heparin 5000 units/ml) 5,000 units EVERY 12 HOURS SUBQ 12/05/17 09:30 01/04/18 09:29 12/07/17 20:35 Hydralazine HCl (Apresoline) 25 mg Q12HR ORAL 12/07/17 09:00 01/06/18 08:59 12/07/17 20:36 Ipratropium [place] (Atrovent) 500 mcg Q6HRT HHN 12/05/17 12:00 12/10/17 11:59 12/07/17 20:24 Isosorbide Dinitrate (Isordil) 30 mg DAILY ORAL 12/05/17 09:30 01/04/18 09:29 12/07/17 09:00 Methadone HCl (Methadone HCl) 10 mg EVERY 12 HOURS ORAL 12/07/17 16:15 12/14/17 16:14 UNV Pantoprazole (Protonix) 40 mg DAILY ORAL 12/06/17 16:30 01/05/18 16:29 12/07/17 09:34 Simethicone (Mylicon) 80 mg Q6H PRN ORAL ABDOMINAL / GAS PAIN 12/06/17 14:30 01/05/18 14:29 12/07/17 20:34 Tamsulosin HCl (Flomax) 0.4 mg BEDTIME ORAL 12/05/17 21:00 01/04/18 20:59 12/07/17 20:34 Theophylline (Campos-Dur) 100 mg EVERY 12 HOURS ORAL 12/07/17 21:00 01/06/18 08:59 12/07/17 20:34 MARÍA ESTRELLA Dec 07, 2017 20:53
[2017-12-08 00:20] VITALS: BP 123/78
[2017-12-08] MEDS: Ipratropium 0.02% Inh Soln 2.5ml UD HHN SCH ×3 (00:21→13:06)
[2017-12-08 04:25] VITALS: BP 136/67
[2017-12-08 08:00] VITALS: BP 102/77
[2017-12-08 08:01] LABS: BASOPHILS % (AUTO) 0.9 % (0.0-2.0); HEMATOCRIT 41.2 % (42.0-52.0); LYMPHOCYTES % (AUTO) 25.4 % (20.0-45.0); MEAN CORPUSCULAR VOLUME 94 FL (80-99); MONOCYTES % (AUTO) 11.2 % (1.0-10.0); NEUTROPHILS % (AUTO) 61.5 % (45.0-75.0); PLATELET COUNT 250 K/UL (150-450); RED BLOOD COUNT 4.37 M/UL (4.70-6.10); RED CELL DISTRIBUTION WIDTH 16.2 % (11.6-14.8); WHITE BLOOD COUNT 4.5 K/UL (4.8-10.8)
[2017-12-08 08:07] LABS: ANION GAP 9 mmol/L (5-15); BLOOD UREA NITROGEN 49 mg/dL (7-18); CALCIUM 9.3 MG/DL (8.5-10.1); CARBON DIOXIDE 25 MMOL/L (21-32); CHLORIDE 102 MMOL/L (98-107); CREATININE 1.4 MG/DL (0.55-1.30); POTASSIUM 4.7 MMOL/L (3.5-5.1); SODIUM 135 MMOL/L (136-145)
[2017-12-08] MEDS: HydrALAZINE 25mg tab ORAL SCH (08:51)
[2017-12-08] MEDS: Theophylline ER 100mg ORAL SCH (08:52)
[2017-12-08] MEDS ORDERED: DIFLUCAN100 MG ORAL (08:58)
[2017-12-08] MEDS ORDERED: Fluconazole 100mg tab ORAL SCH (09:00)
[2017-12-08] MEDS: Heparin 5000 units/ml inj SUBQ SCH (09:00)
[2017-12-08 12:00] VITALS: BP 96/75
--- NOTE | 2017-12-08 13:35 | Cardiac Electrophysiology PN ---
Assessment/Plan Assessment/Plan 1. Troponin leak, likely due to the patient's renal failure with creatinine of 1.6 as well as cardiomyopathy. Denies chest pain, BNP is more than 18,000. Continue Lasix 40 mg IV b.i.d., Aldactone 25 mg daily,Coreg 3.125 mg b.i.d. , Isordil and hydralazine 2. Status post Medtronic atrio-biventricular defibrillator implantation with normal function. 3. Paroxysmal atrial fibrillation, sinus rhythm, off amiodarone as the patient is on Diflucan. 4. Hyperlipidemia, on Lipitor. 5. Chronic obstructive pulmonary disease, on Atrovent. 6. Abdominal pain. Better DW RN Subjective Subjective No events overnight. Diuresing very well. Abdominal pain better. Objective Last 24 Hour Vital Signs Date Time Temp Pulse Resp B/P (MAP) Pulse Ox O2 Delivery O2 Flow Rate FiO2 12/08/17 13:14 85 18 98 Nasal Cannula 2.0 28 12/08/17 13:06 81 20 95 Nasal Cannula 2.0 28 12/08/17 12:00 97.2 90 19 96/75 95 12/08/17 08:52 96 102/77 12/08/17 08:51 102/77 12/08/17 08:51 102/77 12/08/17 08:00 94 12/08/17 08:00 97.6 96 20 102/77 98 Room Air 12/08/17 07:43 99 20 Nasal Cannula 2.0 28 12/08/17 07:33 96 20 98 Nasal Cannula 2.0 32 12/08/17 07:33 98 Nasal Cannula 2.0 28 12/08/17 07:33 Nasal Cannula 2.0 28 12/08/17 04:25 97.0 94 20 136/67 95 Room Air 12/08/17 04:00 96 12/08/17 00:41 100 18 Nasal Cannula 2.0 28 12/08/17 00:20 97.0 100 20 123/78 100 12/08/17 00:19 98 18 97 Nasal Cannula 2.0 28 12/08/17 00:00 100 12/08/17 00:00 Nasal Cannula 2.0 12/07/17 20:40 100 18 98 Nasal Cannula 2.0 28 12/07/17 20:36 131/62 12/07/17 20:35 99 131/62 1/11/18 20:26 Nasal Cannula 2.0 28 12/07/17 20:26 99 20 97 Nasal Cannula 2.0 28 12/07/17 20:25 98.0 104 20 131/62 98 12/07/17 20:25 97 Nasal Cannula 2.0 28 12/07/17 20:00 96 12/07/17 20:00 Nasal Cannula 2.0 12/07/17 16:00 97.5 104 20 105/68 92 12/07/17 16:00 105 Intake and Output 12/07/17 12/08/17 19:00 07:00 Intake Total 650 ml 300 ml Output Total 500 ml 250 ml Balance 150 ml 50 ml Intake Oral 650 ml 300 ml Output Urine Total 500 ml 250 ml # Voids 2 Laboratory Tests Test 12/08/17 07:15 White Blood Count 4.5 K/UL (4.8-10.8) L Red Blood Count 4.37 M/UL (4.70-6.10) L Hemoglobin 13.0 G/DL (14.2-18.0) L Hematocrit 41.2 % (42.0-52.0) L Mean Corpuscular Volume 94 FL (80-99) Mean Corpuscular Hemoglobin 29.8 PG (27.0-31.0) Mean Corpuscular Hemoglobin Concent 31.6 G/DL (32.0-36.0) L Red Cell Distribution Width 16.2 % (11.6-14.8) H Platelet Count 250 K/UL (150-450) Mean Platelet Volume 6.3 FL (6.5-10.1) L Neutrophils (%) (Auto) 61.5 % (45.0-75.0) Lymphocytes (%) (Auto) 25.4 % (20.0-45.0) Monocytes (%) (Auto) 11.2 % (1.0-10.0) H Eosinophils (%) (Auto) 1.0 % (0.0-3.0) Basophils (%) (Auto) 0.9 % (0.0-2.0) Sodium Level 135 MMOL/L (136-145) L Potassium Level 4.7 MMOL/L (3.5-5.1) Chloride Level 102 MMOL/L (98-107) Carbon Dioxide Level 25 MMOL/L (21-32) Anion Gap 9 mmol/L (5-15) Blood Urea Nitrogen 49 mg/dL (7-18) H Creatinine 1.4 MG/DL (0.55-1.30) H Estimat Glomerular Filtration Rate 50.9 mL/min (>60) Glucose Level 109 MG/DL (74-106) H Calcium Level 9.3 MG/DL (8.5-10.1) Coccidioides Antibody (Comp Fix) Pending Objective HEAD AND NECK: Positive JVD. LUNGS: Decreased breath sounds. CARDIOVASCULAR: Regular S1 and S2 with no gallop. ICD left subclavian intact. ABDOMEN: Soft. EXTREMITIES: 1+ pitting edema. HECTOR MCCALL Dec 08, 2017 13:35
--- NOTE | 2017-12-08 14:45 | General Surgery Progress Note ---
General Surgery-Progress Note Subjective Symptoms: improved Additional Comments states that breathing has improved and epigastric pain improved today. no n/v/f /c. comfortable. very thankful. Objective Last 24 Hour Vital Signs Date Time Temp Pulse Resp B/P (MAP) Pulse Ox O2 Delivery O2 Flow Rate FiO2 12/08/17 13:14 85 18 98 Nasal Cannula 2.0 28 12/08/17 13:06 81 20 95 Nasal Cannula 2.0 28 12/08/17 12:00 97.2 90 19 96/75 95 12/08/17 08:52 96 102/77 12/08/17 08:51 102/77 12/08/17 08:51 102/77 12/08/17 08:00 94 12/08/17 08:00 97.6 96 20 102/77 98 Room Air 12/08/17 07:43 99 20 Nasal Cannula 2.0 28 12/08/17 07:33 96 20 98 Nasal Cannula 2.0 32 12/08/17 07:33 98 Nasal Cannula 2.0 28 12/08/17 07:33 Nasal Cannula 2.0 28 12/08/17 04:25 97.0 94 20 136/67 95 Room Air 12/08/17 04:00 96 12/08/17 00:41 100 18 Nasal Cannula 2.0 28 12/08/17 00:20 97.0 100 20 123/78 100 12/08/17 00:19 98 18 97 Nasal Cannula 2.0 28 12/08/17 00:00 100 12/08/17 00:00 Nasal Cannula 2.0 12/07/17 20:40 100 18 98 Nasal Cannula 2.0 28 12/07/17 20:36 131/62 12/07/17 20:35 99 131/62 12/07/17 20:26 Nasal Cannula 2.0 28 12/07/17 20:26 99 20 97 Nasal Cannula 2.0 28 12/07/17 20:25 98.0 104 20 131/62 98 12/07/17 20:25 97 Nasal Cannula 2.0 28 12/07/17 20:00 96 12/07/17 20:00 Nasal Cannula 2.0 12/07/17 16:00 97.5 104 20 105/68 92 12/07/17 16:00 105 I&O Intake and Output 12/07/17 12/08/17 19:00 07:00 Intake Total 650 ml 300 ml Output Total 500 ml 250 ml Balance 150 ml 50 ml Intake Oral 650 ml 300 ml Output Urine Total 500 ml 250 ml # Voids 2 Cardiovascular: RSR Respiratory: decreased breath sounds Abdomen: soft, non-tender, present bowel sounds Extremities: no tenderness Laboratory Tests Test 12/08/17 07:15 White Blood Count 4.5 K/UL (4.8-10.8) L Red Blood Count 4.37 M/UL (4.70-6.10) L Hemoglobin 13.0 G/DL (14.2-18.0) L Hematocrit 41.2 % (42.0-52.0) L Mean Corpuscular Volume 94 FL (80-99) Mean Corpuscular Hemoglobin 29.8 PG (27.0-31.0) Mean Corpuscular Hemoglobin Concent 31.6 G/DL (32.0-36.0) L Red Cell Distribution Width 16.2 % (11.6-14.8) H Platelet Count 250 K/UL (150-450) Mean Platelet Volume 6.3 FL (6.5-10.1) L Neutrophils (%) (Auto) 61.5 % (45.0-75.0) Lymphocytes (%) (Auto) 25.4 % (20.0-45.0) Monocytes (%) (Auto) 11.2 % (1.0-10.0) H Eosinophils (%) (Auto) 1.0 % (0.0-3.0) Basophils (%) (Auto) 0.9 % (0.0-2.0) Sodium Level 135 MMOL/L (136-145) L Potassium Level 4.7 MMOL/L (3.5-5.1) Chloride Level 102 MMOL/L (98-107) Carbon Dioxide Level 25 MMOL/L (21-32) Anion Gap 9 mmol/L (5-15) Blood Urea Nitrogen 49 mg/dL (7-18) H Creatinine 1.4 MG/DL (0.55-1.30) H Estimat Glomerular Filtration Rate 50.9 mL/min (>60) Glucose Level 109 MG/DL (74-106) H Calcium Level 9.3 MG/DL (8.5-10.1) Coccidioides Antibody (Comp Fix) Pending Plan Problems: (1) Abdominal pain Assessment & Plan: 67M epigastric abdominal pain x 2 weeks. constant discomfort, no radiation, described as cramping. no n/v/f/c. multiple other medical comorbidities. given extensive cardiac and pulmonary history could have multiple etiologies. will need further work up to ensure stable and safe. CT reviewed and no surgical findings noted. no etiology of epigastric pain noted. Ultrasound reviewed as well. minimal gb wall thickening but no stones. labs reviewed and okay. did note massive cardiomegaly on CT -no organic etiology for pain at this time. no acute surgical intervention necessary. -symptoms improved now with improved cardiac and pulmonary function -okay to d/c from surgical standpoint thank you for this consultation and allowing me to participate in Mr. Alvarado's care. Mark Bray Dec 08, 2017 14:44
--- NOTE | 2017-12-08 15:37 | Pulmonology Progress Note ---
Assessment/Plan Problems: (1) Hemoptysis (2) COPD (chronic obstructive pulmonary disease) (3) Chronic systolic (congestive) heart failure (4) Pulmonary coccidioidomycosis (5) Atrial fibrillation Assessment/Plan hemoptysis improved check sputum increase theophyline to BID low dose methadone for chronic dyspnea Subjective ROS Limited/Unobtainable: No Constitutional: Reports: no symptoms HEENT: Repors: no symptoms Respiratory: Reports: no symptoms Allergies: Coded Allergies: No Known Allergies (Unverified , 11/20/17) Objective Last 24 Hour Vital Signs Date Time Temp Pulse Resp B/P (MAP) Pulse Ox O2 Delivery O2 Flow Rate FiO2 12/08/17 13:14 85 18 98 Nasal Cannula 2.0 28 12/08/17 13:06 81 20 95 Nasal Cannula 2.0 28 12/08/17 12:00 97.2 90 19 96/75 95 12/08/17 08:52 96 102/77 12/08/17 08:51 102/77 12/08/17 08:51 102/77 12/08/17 08:00 94 12/08/17 08:00 97.6 96 20 102/77 98 Room Air 12/08/17 07:43 99 20 Nasal Cannula 2.0 28 12/08/17 07:33 96 20 98 Nasal Cannula 2.0 32 12/08/17 07:33 98 Nasal Cannula 2.0 28 12/08/17 07:33 Nasal Cannula 2.0 28 12/08/17 04:25 97.0 94 20 136/67 95 Room Air 12/08/17 04:00 96 12/08/17 00:41 100 18 Nasal Cannula 2.0 28 12/08/17 00:20 97.0 100 20 123/78 100 12/08/17 00:19 98 18 97 Nasal Cannula 2.0 28 12/08/17 00:00 100 12/08/17 00:00 Nasal Cannula 2.0 12/07/17 20:40 100 18 98 Nasal Cannula 2.0 28 12/07/17 20:36 131/62 12/07/17 20:35 99 131/62 12/07/17 20:26 Nasal Cannula 2.0 28 12/07/17 20:26 99 20 97 Nasal Cannula 2.0 28 12/07/17 20:25 98.0 104 20 131/62 98 12/07/17 20:25 97 Nasal Cannula 2.0 28 12/07/17 20:00 96 12/07/17 20:00 Nasal Cannula 2.0 12/07/17 16:00 97.5 104 20 105/68 92 12/07/17 16:00 105 Intake and Output 12/07/17 12/08/17 19:00 07:00 Intake Total 650 ml 300 ml Output Total 500 ml 250 ml Balance 150 ml 50 ml Intake Oral 650 ml 300 ml Output Urine Total 500 ml 250 ml # Voids 2 General Appearance: WD/WN HEENT: normocephalic Respiratory/Chest: chest wall non-tender, lungs clear Cardiovascular: normal peripheral pulses, normal rate Abdomen: normal bowel sounds, soft, non tender 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 Laboratory Tests 12/08/17 07:15: White Blood Count 4.5L, Red Blood Count 4.37L, Hemoglobin 13.0L, Hematocrit 41.2L, Mean Corpuscular Volume 94, Mean Corpuscular Hemoglobin 29.8, Mean Corpuscular Hemoglobin Concent 31.6L, Red Cell Distribution Width 16.2H, Platelet Count 250, Mean Platelet Volume 6.3L, Neutrophils (%) (Auto) 61.5, Lymphocytes (%) (Auto) 25.4, Monocytes (%) (Auto) 11.2H, Eosinophils (%) (Auto) 1.0, Basophils (%) (Auto) 0.9, Sodium Level 135L, Potassium Level 4.7, Chloride Level 102, Carbon Dioxide Level 25, Anion Gap 9, Blood Urea Nitrogen 49H, Creatinine 1.4H, Estimat Glomerular Filtration Rate 50.9, Glucose Level 109H, Calcium Level 9.3, Coccidioides Antibody (Comp Fix) [Pending] Current Medications Medications (Trade) Dose Ordered Sig/Sanjay Route PRN Reason Start Time Stop Time Status Last Admin Dose Admin Atorvastatin Calcium (Lipitor) 10 mg BEDTIME ORAL 12/05/17 21:00 01/04/18 20:59 12/07/17 20:34 Carvedilol (Coreg) 3.125 mg EVERY 12 HOURS ORAL 12/07/17 09:00 01/06/18 08:59 12/08/17 08:52 Fluconazole (Diflucan) 200 mg DAILY ORAL 12/08/17 09:00 12/15/17 08:59 12/08/17 08:52 Furosemide (Lasix) 40 mg BID IV 12/05/17 11:00 01/04/18 10:59 12/08/17 08:54 Heparin Sodium (Porcine) (Heparin 5000 units/ml) 5,000 units EVERY 12 HOURS SUBQ 12/05/17 09:30 01/04/18 09:29 12/08/17 09:00 Hydralazine HCl (Apresoline) 25 mg Q12HR ORAL 12/07/17 09:00 01/06/18 08:59 12/08/17 08:51 Ipratropium [place] (Atrovent) 500 mcg Q6HRT HHN 12/05/17 12:00 12/10/17 11:59 12/08/17 13:06 Isosorbide Dinitrate (Isordil) 30 mg DAILY ORAL 12/05/17 09:30 01/04/18 09:29 12/08/17 08:51 Methadone HCl (Methadone HCl) 5 mg BID ORAL 12/07/17 22:00 12/14/17 21:59 12/08/17 08:54 Pantoprazole (Protonix) 40 mg BID ORAL 12/07/17 22:00 01/05/18 21:59 12/08/17 08:51 Simethicone (Mylicon) 80 mg Q6H PRN ORAL ABDOMINAL / GAS PAIN 12/06/17 14:30 01/05/18 14:29 12/07/17 20:34 Tamsulosin HCl (Flomax) 0.4 mg BEDTIME ORAL 12/05/17 21:00 01/04/18 20:59 12/07/17 20:34 Theophylline (Campos-Dur) 100 mg EVERY 12 HOURS ORAL 12/07/17 21:00 01/06/18 08:59 12/08/17 08:52 AARON BOWLING Dec 08, 2017 15:37
[2017-12-08] MEDS ORDERED: METHADONE HCL5 MG ORAL (16:08)
[2017-12-08] MEDS ORDERED: THEOPHYLLINE A100 MG ORAL (16:08)
[2017-12-08] MEDS ORDERED: SIMETHICONE80 MG ORAL (16:08)
--- NOTE | 2017-12-09 23:03 | Consultation ---
History of Present Illness General Date patient seen: Dec 06, 2017 Chief Complaint: Flu Like Symptoms Referring physician: Primary Reason for Consultation: Abdominal pain Present Illness HPI 67y/o male with PMH of Afib, HTN, HLD, BPH, COPD, and systolic CHF (EF 12% done on 10/2017) presented from SNF for increasing shortness of breath. Pt recently admitted to [facility] for CHF exacerbation. the pt has anxiety Allergies: Coded Allergies: No Known Allergies (Unverified , 11/20/17) Medication History Scheduled Aspirin* (Aspir 81*), 81 MG ORAL DAILY, (Reported) Bisacodyl (Dulcolax), 5 MG PO DAILY, (Reported) Carvedilol (Coreg), 3.125 MG ORAL EVERY 12 HOURS, (Reported) Docusate Sodium* (Colace*), 100 MG ORAL DAILY, (Reported) Fluconazole* (Diflucan*), 200 MG ORAL DAILY Furosemide* (Lasix*), 40 MG ORAL TWICE A DAY Heparin Sod (Porcine) (Heparin Sodium*), 5,000 UNITS SUBQ EVERY 12 HOURS, ( Reported) Isosorbide Dinitrate* (Isordil*), 30 MG ORAL DAILY, (Reported) Losartan Potassium* (Losartan Potassium*), 25 MG ORAL DAILY, (Reported) Methadone Hcl* (Methadone*), 5 MG ORAL BID Metoprolol Tartrate* (Metoprolol Tartrate*), 25 MG ORAL DAILY, (Reported) Simvastatin (Zocor), 10 MG ORAL BEDTIME, (Reported) Tamsulosin Hcl (Tamsulosin Hcl*), 0.4 MG ORAL BEDTIME, (Reported) Theophylline (Theodur*), 100 MG ORAL EVERY 12 HOURS Scheduled PRN Acetaminophen (Acetaminophen), 650 MG ORAL Q4HR PRN for Prn Headache/Temp > 101, (Reported) Ipratropium [place] 0.5MG/2.5ML (Ipratropium [place] 0.5MG/2.5ML), 0.5 MG HHN Q6H PRN for Shortness of Breath, (Reported) Simethicone* (Simethicone*), 80 MG ORAL Q6H PRN Discontinued Medications Amiodarone Hcl* (Amiodarone Hcl*), 200 MG ORAL EVERY 12 HOURS, (Reported) Discontinued Reason: MD discontinued med Fluconazole* (Diflucan*), 400 MG ORAL DAILY Discontinued Reason: Medication dose changed Oseltamivir Phosphate (Oseltamivir Phosphate), 75 MG PO BID, (Reported) Discontinued Reason: Therapy completed Patient History Limited by: medical condition History Provided By: Patient, Medical Record, PMD Healthcare decision maker Resuscitation status Advanced Directive on File Yes Past Medical/Surgical History Past Medical/Surgical History: (1) Atrial fibrillation (2) Pulmonary coccidioidomycosis (3) Cardiomyopathy (4) HTN (hypertension) (5) HLD (hyperlipidemia) (6) BPH (benign prostatic hyperplasia) (7) Chronic systolic (congestive) heart failure (8) Acute on chronic systolic (congestive) heart failure (9) RAKESH (acute kidney injury) (10) Cardiorenal syndrome (11) Elevated troponin (12) COPD (chronic obstructive pulmonary disease) (13) lives at snf (14) Abdominal pain (15) Acute blood loss anemia (16) Hemoptysis (17) Hyperkalemia (18) Bacteremia (19) Prolonged Q-T interval on ECG (20) COPD exacerbation (21) CHF exacerbation (22) Depressed left ventricular ejection fraction Review of Systems Psychiatric: Reports: prior hx, anxiety Physical Exam General Appearance: no apparent distress, alert Neurologic: alert, oriented x 3, responsive, depressed affect Height (Feet): 5 Height (Inches): 10.00 Weight (Pounds): 123 Assessment/Plan Status: stable, progressing Checo Monte M.D. Dec 09, 2017 23:03
--- NOTE | 2017-12-09 23:04 | General Progress Note ---
Assessment/Plan Status: progressing Subjective Date patient seen: Dec 08, 2017 Neurologic/Psychiatric: Reports: anxiety, depressed, emotional problems Allergies: Coded Allergies: No Known Allergies (Unverified , 11/20/17) Objective Height (Feet): 5 Height (Inches): 10.00 Weight (Pounds): 123 General Appearance: no apparent distress, alert Neurologic: alert, oriented x 3, responsive Checo Monte M.D. Dec 09, 2017 23:04
--- NOTE | 2017-12-09 23:04 | General Progress Note ---
Assessment/Plan Status: stable, progressing Subjective Date patient seen: Dec 07, 2017 Neurologic/Psychiatric: Reports: anxiety, depressed Allergies: Coded Allergies: No Known Allergies (Unverified , 11/20/17) Objective Height (Feet): 5 Height (Inches): 10.00 Weight (Pounds): 123 General Appearance: alert Neurologic: alert, oriented x 3, responsive Checo Monte M.D. Dec 09, 2017 23:04
--- NOTE | 2017-12-12 21:51 | Discharge Summary ---
Discharge Summary Hospital Course Date of Admission Dec 04, 2017 at 21:26 Date of Discharge Dec 08, 2017 at 16:11 Admitting Diagnosis CHF exacerbation Reason for Hospitalization: CHF exacerbation HPI 67y/o male with PMH of Afib, HTN, HLD, BPH, COPD, and systolic CHF (EF 12% done on 10/2017) presented from SNF for increasing shortness of breath. Pt recently admitted to [facility] for CHF exacerbation and was diuresed and sent back to SNF on . Pt notes worsening SOB, BLE swelling and cough x 1 week. Has been on lasix 40mg daily. Cough productive of clear sputum. Denies f/c, n/v, d/c, chest pain. Also c/o upper abd pain, intermittent, crampy sensation. Also c/o generalized weakness. Of note, patient was also recently admitted to [facility] for similar symptoms and was found to have pulmonary coccidiomycosis and influenza B. Patient was treated with tamiflu and fluconazole. Final cocci serology from [facility] came back positive. Pt has been on diflucan. During recent admission at [facility] diflucan dose was increased to 400mg daily after amiodarone was discontinued. Consultations Pulmonology, Cardiology, Gen surgery, Infectious disease, Psychiatry Hospital Course Pt was admitted to [facility] and diuresed w/ lasix IV with good response. His medications were titrate per cardiology. Pt c/o persistent abdominal pain and also had episode of hemoptysis so he underwent CT chest/abd/pelvis which showed cardiomegaly but was otherwise unremarkable. Pt's pain medications were adjusted with good response. Given elevated Cr on admission, his diflucan dose was reduced to 200mg daily. Pt symptomatically improved and prior to d/c pt was HD stable, tolerating PO and ambulating w/ FWW. Discharged physical exam: General: alert, cooperative, no distress, appears stated age Head: normocephalic, without obvious abnormality, atraumatic Eyes: conjunctivae/corneas clear. PERRL, EOM's intact Throat: lips, mucosa, and tongue normal. MMM Neck: supple, symmetrical, trachea midline, and +JVD Lungs: clear to auscultation bilaterally Heart: regular rate and rhythm, S1, S2 normal, no murmur, click, rub or gallop Abdomen: soft, non-tender, non-distended, bowel sounds normal; no masses or organomegaly Extremities: extremities normal, atraumatic, no cyanosis, 1-2+ pitting edema of BLE (improved) Pulses: 2+ and symmetric Skin: skin color, texture, turgor normal; no rashes or lesions Neurologic: grossly normal, no focal deficits Discharge diagnoses: (1) Acute on chronic systolic (congestive) heart failure ICD Codes: I50.23 - Acute on chronic systolic (congestive) heart failure SNOMED: 23367168, 500118032 (2) Cardiomyopathy Assessment & Plan: EF <20% ICD Codes: I42.9 - Cardiomyopathy, unspecified SNOMED: 05239951 (3) Atrial fibrillation ICD Codes: I48.91 - Unspecified atrial fibrillation SNOMED: 63937052 (4) Pulmonary coccidioidomycosis ICD Codes: B38.2 - Pulmonary coccidioidomycosis, unspecified SNOMED: 688919305 (5) HTN (hypertension) ICD Codes: I10 - Essential (primary) hypertension SNOMED: 70414959 (6) HLD (hyperlipidemia) ICD Codes: E78.5 - Hyperlipidemia, unspecified SNOMED: 70169526 (7) BPH (benign prostatic hyperplasia) ICD Codes: N40.0 - Benign prostatic hyperplasia without lower urinary tract symptoms SNOMED: 869665224 (8) RAKESH (acute kidney injury) ICD Codes: N17.9 - Acute kidney failure, unspecified SNOMED: 55842920 (9) Cardiorenal syndrome ICD Codes: I13.10 - Hypertensive heart and chronic kidney disease without heart failure, with stage 1 through stage 4 chronic kidney disease, or unspecified chronic kidney disease SNOMED: 819752003 (10) Hyperkalemia ICD Codes: E87.5 - Hyperkalemia SNOMED: 75748012 (11) Elevated troponin Assessment & Plan: Possibly in setting of renal insufficiency vs NSTEMi type 2 in setting of CHF ICD Codes: R74.8 - Abnormal levels of other serum enzymes SNOMED: 870774661, 141888652 (12) COPD (chronic obstructive pulmonary disease) ICD Codes: J44.9 - Chronic obstructive pulmonary disease, unspecified SNOMED: 60971989 (13) Abdominal pain ICD Codes: R10.9 - Unspecified abdominal pain SNOMED: 20358574 Qualifiers: Qualified Codes: R10.13 - Epigastric pain (14) Hemoptysis ICD Codes: R04.2 - Hemoptysis SNOMED: 99682498 (15) Acute blood loss anemia ICD Codes: D62 - Acute posthemorrhagic anemia SNOMED: 950581876 Discharge Medications New Medications: Fluconazole* (Diflucan*) 100 Mg Tablet 200 MG ORAL DAILY for 90 Days, #90 TAB Methadone Hcl* (Methadone*) 5 Mg Tablet 5 MG ORAL BID for 30 Days, #60 TAB Simethicone* (Simethicone*) 80 Mg Tab.chew 80 MG ORAL Q6H PRN for 30 Days, #30 TAB Theophylline (Theodur*) 100 Mg Tab.er.12h 100 MG ORAL EVERY 12 HOURS for 30 Days, #60 TAB Continued Medications: Acetaminophen (Acetaminophen) 650 Mg/20.3 Ml Solution 650 MG ORAL Q4HR PRN for Prn Headache/Temp > 101, ML 0 Refills Aspirin* (Aspir 81*) 81 Mg Tablet.dr 81 MG ORAL DAILY, TAB Bisacodyl (Dulcolax) 5 Mg Tablet.dr 5 MG PO DAILY, TAB Carvedilol (Coreg) 3.125 Mg Tablet 3.125 MG ORAL EVERY 12 HOURS, TAB Docusate Sodium* (Colace*) 100 Mg Capsule 100 MG ORAL DAILY, CAP Furosemide* (Lasix*) 40 Mg Tablet 40 MG ORAL TWICE A DAY for 30 Days, TAB 0 Refills Heparin Sod (Porcine) (Heparin Sodium*) 5 000/1 Ml Vial 5000 UNITS SUBQ EVERY 12 HOURS, VIAL Ipratropium [place] 0.5MG/2.5ML (Ipratropium [place] 0.5MG/2.5ML) 0.2 Mg/1 Ml Solution 0.5 MG HHN Q6H PRN for Shortness of Breath, #28 EA Isosorbide Dinitrate* (Isordil*) 30 Mg Tablet 30 MG ORAL DAILY, #20 TAB 0 Refills Losartan Potassium* (Losartan Potassium*) 25 Mg Tablet 25 MG ORAL DAILY, TAB Metoprolol Tartrate* (Metoprolol Tartrate*) 25 Mg Tablet 25 MG ORAL DAILY, TAB Simvastatin (Zocor) 10 Mg Tablet 10 MG ORAL BEDTIME, TAB Tamsulosin Hcl (Tamsulosin Hcl*) 0.4 Mg Cap.er.24h 0.4 MG ORAL BEDTIME, CAP Discontinued Medications: Amiodarone Hcl* (Amiodarone Hcl*) 400 Mg Tablet 200 MG ORAL EVERY 12 HOURS, TAB Fluconazole* (Diflucan*) 100 Mg Tablet 400 MG ORAL DAILY for 90 Days, TAB Oseltamivir Phosphate (Oseltamivir Phosphate) 75 Mg Capsule 75 MG PO BID, CAP Discharge Condition Upon Discharge: stable Discharge Disposition Patient was discharged to SNF/Subacute Facility(03) Discharge Diagnoses: Kiara Kulkarni M.D. Dec 12, 2017 21:51
--- NOTE | 2017-12-24 20:39 | Diagnostic Imaging Report ---
APPROVED REPORT CPT Code: 53737 Present Symptoms Lower Extremity Pain: Lower Extremity Edema: Bilateral Comments: R/O DVT. BILATERAL LOWER EXTREMITY VENOUS DUPLEX: Imaging reveals a patent deep venous system bilaterally. There is no evidence of thrombus within the femoral, popliteal or tibial segments. The greater saphenous veins are also within normal limits. Doppler indicates normal spontaneous flow within these segments.
== END 2017-12-08 16:11 | DRG 291 ==
LOC: EDBD 19:21 → EMR 19:59 → EDBEDREQ 20:57 → SDSOVERFLO 21:26 → EDBEDREQ 12-05 16:54 → 2E 12-05 21:26 → UNDOADMIN 12-05 21:26 → SDSOVERFLO 12-05 21:27 → 2E 12-05 21:27 → EDBEDREQ 12-05 22:01 → 2E 12-06 12:06
DX: I13.0 Hypertensive heart and chronic kidney disease with heart failure and stage 1 through stage 4 chronic kidney disease, or unspecified chronic kidney disease (principal); I50.23 Acute on chronic systolic (congestive) heart failure; N17.9 Acute kidney failure, unspecified; R04.2 Hemoptysis; B38.2 Pulmonary coccidioidomycosis, unspecified; D62 Acute posthemorrhagic anemia; E87.5 Hyperkalemia; I48.0 Paroxysmal atrial fibrillation; I42.9 Cardiomyopathy, unspecified; J44.9 Chronic obstructive pulmonary disease, unspecified; N18.9 Chronic kidney disease, unspecified; F41.9 Anxiety disorder, unspecified; N40.0 Benign prostatic hyperplasia without lower urinary tract symptoms; E78.5 Hyperlipidemia, unspecified; Z79.82 Long term (current) use of aspirin; Z95.810 Presence of automatic (implantable) cardiac defibrillator; Z22.322 Carrier or suspected carrier of Methicillin resistant Staphylococcus aureus
CPT/HCPCS: 36415; 71045; 71250; 74176; 76700; 80048; 80053; 82150; 82248; 83605; 83690; 83735; 83880; 84100; 84484; 85025; 86635; 86710; 87081; 93005; 93970; 94640; 94664; 94760; 99285